=== PATIENT | female | born 1960 | race African-American/Black ===

== ENCOUNTER 2018-07-13 03:56 | Inpatient (IN) | payer OTHER ==
[~2018-07-13] VITALS: Ht 162.6 cm; Wt 54.4 kg
[2018-07-13] VITALS (22 sets, daily range): BP systolic 83–220; BP diastolic 65–133
[~2018-07-13 03:56] MED LIST: NKM
[2018-07-13] MEDS ORDERED: Sodium Chloride 500ML 500 ML IV ONE (04:12)
[2018-07-13] MEDS ORDERED: LORazepam Inj 2mg/ml 1ml IV ONE ×2 (04:15→05:45)
[2018-07-13] MEDS ORDERED: Albuterol ud Inhalation HHN ONE (04:15)
[2018-07-13] MEDS ORDERED: Ipratropium 0.02% Inh Soln 2.5ml UD HHN ONE (04:15)
--- NOTE | 2018-07-13 04:16 | Emergency Room Report ---
History of Present Illness General Chief Complaint: Diarrhea Source: Patient Present Illness HPI Patient presents with initially complaint of diarrhea However upon initial evaluation patient short of breath Hypertensive Patient does admit to doing cocaine Denies any chest pain however does feel short of breath Denies any back or flank pain Denies any abdominal pain Diarrhea has been ongoing for the past several days Denies any fevers Allergies: Coded Allergies: No Known Allergies (Unverified , 05/17/18) Patient History Past Medical History: see triage record Pertinent Family History: none Last Menstrual Period: na Now: No Reviewed Nursing Documentation: PMH: Agreed; PSxH: Agreed Nursing Documentation-PMH Past Medical History: No History, Except For Hx COPD: Yes Review of Systems All Other Systems: negative except mentioned in HPI Physical Exam Vital Signs Date Time Temp Pulse Resp B/P (MAP) Pulse Ox O2 Delivery O2 Flow Rate FiO2 07/13/18 03:56 98.4 120 25 205/122 92 Room Air Sp02 EP Interpretation: reviewed, normal General Appearance: mild distress - Appears uncomfortable Head: normocephalic, atraumatic Eyes: bilateral eye PERRL, bilateral eye EOMI ENT: hearing grossly normal, normal pharynx, TMs + canals normal, uvula midline Neck: full range of motion, supple, no meningismus, no bony tend Respiratory: no retraction, no accessory muscle use, crackles - Diffusely Cardiovascular #1: no edema, no gallop, no JVD, no murmur, tachycardia Gastrointestinal: normal bowel sounds, non tender, soft, no mass, no organomegaly, non-distended, no guarding, no hernia, no pulsatile mass, no rebound Genitourinary: no CVA tenderness Musculoskeletal: normal inspection Neurologic: oriented x3, responsive, [employer]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, motor strength/ tone normal, sensory intact Psychiatric: mood/affect normal Skin: normal color, no rash, warm/dry, palpation normal Lymphatic: normal inspection, no adenopathy Procedures Critical Care Time Critical Care Time 65 minutes for multiple re-evaluations, critical presentation, respiratory failure concerning for cardiopulmonary arrest not including any procedural time Intubation Intubation : Consent: Emergent Intubation Method: orotracheal Tube Size (cm): 8.0 Medications: Etomidate, Succinylcholine Breath Sounds after Intubation: equal Intubation Complications: no complications Post Intubation Xray: Yes Attempts: One Patient Tolerated: Well Complications: None Medical Decision Making Diagnostic Impression: Primary Impression: Respiratory failure Additional Impressions: CHF (congestive heart failure) COPD exacerbation ER Course Upon arrival patient appears in acute distress Breathing treatments along with ABG is obtained patient's pH is significantly low Elevated CO2 Patient continues to deteriorate and required airway intubation BNP is elevated patient appears to have a mixed CHF/COPD exacerbation With significant CO2 retention x-ray shows pulmonary congestion Urine sample that show infectious pathology Antibiotics are provided after blood cultures patient initially contacted for transfer however given the continued deterioration and decompensation patient is unstable for transfer Labs Test 07/13/18 04:14 07/13/18 04:40 07/13/18 04:44 07/13/18 05:00 White Blood Count 10.1 K/UL (4.8-10.8) Red Blood Count 6.02 M/UL (4.20-5.40) Hemoglobin 16.2 G/DL (12.0-16.0) Hematocrit 50.0 % (37.0-47.0) Mean Corpuscular Volume 83 FL (80-99) Mean Corpuscular Hemoglobin 26.9 PG (27.0-31.0) Mean Corpuscular Hemoglobin Concent 32.3 G/DL (32.0-36.0) Red Cell Distribution Width 14.5 % (11.6-14.8) Platelet Count 390 K/UL (150-450) Mean Platelet Volume 6.2 FL (6.5-10.1) Neutrophils (%) (Auto) 47.8 % (45.0-75.0) Lymphocytes (%) (Auto) 38.1 % (20.0-45.0) Monocytes (%) (Auto) 8.3 % (1.0-10.0) Eosinophils (%) (Auto) 2.9 % (0.0-3.0) Basophils (%) (Auto) 2.9 % (0.0-2.0) Sodium Level 143 MMOL/L (136-145) Potassium Level 3.8 MMOL/L (3.5-5.1) Chloride Level 107 MMOL/L (98-107) Carbon Dioxide Level 27 MMOL/L (21-32) Anion Gap 9 mmol/L (5-15) Blood Urea Nitrogen 15 mg/dL (7-18) Creatinine 1.2 MG/DL (0.55-1.30) Estimat Glomerular Filtration Rate 55.8 mL/min (>60) Glucose Level 218 MG/DL (74-106) Calcium Level 9.4 MG/DL (8.5-10.1) Total Bilirubin 0.4 MG/DL (0.2-1.0) Aspartate Amino Transf (AST/SGOT) 40 U/L (15-37) Alanine Aminotransferase (ALT/SGPT) 55 U/L (12-78) Alkaline Phosphatase 148 U/L (46-116) Total Creatine Kinase 107 U/L (26-308) Creatine Kinase MB 1.8 NG/ML (0.0-3.6) Creatine Kinase MB Relative Index 1.6 Troponin I 0.004 ng/mL (0.000-0.056) Pro-B-Type Natriuretic Peptide 1404 pg/mL (0-125) Total Protein 8.5 G/DL (6.4-8.2) Albumin 3.6 G/DL (3.4-5.0) Globulin 4.9 g/dL Albumin/Globulin Ratio 0.7 (1.0-2.7) Lipase 282 U/L (73-393) Arterial Blood pH 7.021 (7.350-7.450) Arterial Blood Partial Pressure CO2 96.0 mmHg (35.0-45.0) Arterial Blood Partial Pressure O2 60.3 mmHg (75.0-100.0) Arterial Blood HCO3 24.3 mmol/L (22.0-26.0) Arterial Blood Oxygen Saturation 78.5 % (95-100) Arterial Blood Base Excess -9.0 (-2-2) Theo Test Positive Urine Color Pale yellow Urine Appearance Slightly cloudy Urine pH 6 (4.5-8.0) Urine Specific [place] 1.020 (1.005-1.035) Urine Protein 4+ (NEGATIVE) Urine Glucose (UA) 4+ (NEGATIVE) Urine Ketones Negative (NEGATIVE) Urine Blood 5+ (NEGATIVE) Urine Nitrite Negative (NEGATIVE) Urine Bilirubin Negative (NEGATIVE) Urine Urobilinogen Normal MG/DL (0.0-1.0) Urine Leukocyte Esterase 3+ (NEGATIVE) Urine RBC Tntc /HPF (0 - 2) Urine WBC 40-60 /HPF (0 - 2) Urine Squamous Epithelial Cells Many /LPF (NONE/OCC) Urine Bacteria Moderate /HPF (NONE) Urine Coarse Granular Casts 0-2 /LPF (NONE) Urine Opiates Screen Negative (NEGATIVE) Urine Barbiturates Screen Negative (NEGATIVE) Phencyclidine (PCP) Screen Negative (NEGATIVE) Urine Amphetamines Screen Negative (NEGATIVE) Urine Benzodiazepines Screen Negative (NEGATIVE) Urine Cocaine Screen Positive (NEGATIVE) Urine Marijuana (THC) Screen Positive (NEGATIVE) Triglycerides Level 56 MG/DL (30-150) EKG Diagnostic Results Rate: tachycardiac Rhythm: other ST Segments: other - Nonspecific ST, T-wave changes Rhythm Strip Diag. Results EP Interpretation: yes Rate: 110 Rhythm: no PVC's, no ectopy, other - Sinus tach Chest X-Ray Diagnostic Results Chest X-Ray Diagnostic Results : Chest X-Ray Ordered: Yes # of Views/Limited/Complete: 1 View Indication: Shortness of Breath EP Interpretation: Yes Interpretation: no effusion, other - Pulmonary congestion, bilateral increased markings, normal heart size Impression: Other - Pulmonary edema Electronically Signed by: Netta Fang DO Other X-Ray Diagnostic Results Other X-Ray Diagnostic Results : X-Ray ordered: Chest # of Views/Limited Vs Complete: 1 View Indication: Pain EP Interpretation: Yes Interpretation: other Impression: Other - ET tube above the jony will advance minimally Electronically Signed by: Netta Fang DO Last Vital Signs Date Time Temp Pulse Resp B/P (MAP) Pulse Ox O2 Delivery O2 Flow Rate FiO2 07/13/18 03:56 98.4 120 25 205/122 92 Room Air Status: improved Disposition: ADMITTED INPATIENT Condition: Critical Netta Fang DO Jul 13, 2018 04:16
[2018-07-13 04:29] LABS: BASOPHILS % (AUTO) 2.9 % (0.0-2.0); EOSINOPHILS % (AUTO) 2.9 % (0.0-3.0); HEMOGLOBIN 16.2 G/DL (12.0-16.0); LYMPHOCYTES % (AUTO) 38.1 % (20.0-45.0); MEAN CORPUSCULAR VOLUME 83 FL (80-99); MONOCYTES % (AUTO) 8.3 % (1.0-10.0); NEUTROPHILS % (AUTO) 47.8 % (45.0-75.0); PLATELET COUNT 390 K/UL (150-450); RED BLOOD COUNT 6.02 M/UL (4.20-5.40); RED CELL DISTRIBUTION WIDTH 14.5 % (11.6-14.8); WHITE BLOOD COUNT 10.1 K/UL (4.8-10.8)
[2018-07-13 04:36] LABS: ANION GAP 9 mmol/L (5-15); BLOOD UREA NITROGEN 15 mg/dL (7-18); CALCIUM 9.4 MG/DL (8.5-10.1); CARBON DIOXIDE 27 MMOL/L (21-32); CHLORIDE 107 MMOL/L (98-107); CREATININE 1.2 MG/DL (0.55-1.30); POTASSIUM 3.8 MMOL/L (3.5-5.1); SODIUM 143 MMOL/L (136-145)
[2018-07-13 04:39] LABS: BILIRUBIN, URINE NEGATIVE (NEGATIVE); COLOR,URINE PALE YELLOW; GLUCOSE, URINE (UA) 4+ (NEGATIVE); KETONES,URINE NEGATIVE (NEGATIVE); LEUKOCYTE ESTERASE ,URINE 3+ (NEGATIVE); NITRITE,URINE NEGATIVE (NEGATIVE); PH,URINE 6 (4.5-8.0); PROTEIN,URINE 4+ (NEGATIVE); UROBILINOGEN,URINE NORMAL MG/DL (0.0-1.0)
[2018-07-13] MEDS ORDERED: Nitroglycerin 2% oint pkt TOPIC ONE (04:45)
[2018-07-13 04:47] LABS: APPEARANCE,URINE SLIGHTLY CLOUDY
[2018-07-13 04:51] LABS: ALANINE AMINOTRANSFERASE 55 U/L (12-78); ALBUMIN 3.6 G/DL (3.4-5.0); ALBUMIN/GLOBULIN RATIO 0.7 (1.0-2.7); ALKALINE PHOSPHATASE 148 U/L (46-116); ASPARTATE AMINO TRANSFERASE 40 U/L (15-37); BILIRUBIN,TOTAL 0.4 MG/DL (0.2-1.0); CKMB 1.8 NG/ML (0.0-3.6); CREATINE KINASE 107 U/L (26-308)
[2018-07-13] MEDS ORDERED: Succinylcholine 20mg/ml 10ml vial IV ONE (05:00)
[2018-07-13] MEDS ORDERED: Etomidate 40mg/20ml Inj IV ONE (05:00)
[2018-07-13] MEDS: D5NS 1,000 ML IV SCH ×2 (10:25→19:42)
[2018-07-13] MEDS: cefTRIAXone 1 GM in D5W 55 ML IVPB SCH (10:26)
[2018-07-13] MEDS: Solu-MEDROL 125mg Inj IVP SCH ×2 (10:27→20:53)
[2018-07-13] MEDS: Heparin 5000 units/ml inj SUBQ SCH ×2 (10:32→20:53)
--- NOTE | 2018-07-13 10:38 | Diagnostic Imaging Report ---
Indication: Chest pain Technique: One view of the chest Comparison: none Findings: The heart is mildly enlarged. There is diffuse bilateral interstitial and airspace edema. There may be a small amount of pleural fluid on the right, less than on the prior study. Cystic space in the right upper lobe is again demonstrated. Impression: Findings compatible with congestive heart failure
[2018-07-13] MEDS: Albuterol/Ipratropium 3ml neb HHN SCH ×4 (10:44→23:20)
--- NOTE | 2018-07-13 11:50 | Diagnostic Imaging Report ---
Indication: Post orogastric feeding tube placement Technique: Supine view of the upper abdomen Comparison: none Findings: There is a gastric feeding tube in place, tip projected level gastric body, proximal port well beyond the gastroesophageal junction. The bowel gas pattern is unremarkable. Impression: Satisfactory position of orogastric feeding tube Findings phoned to patient's nurse, Joao, at the time of interpretation
--- NOTE | 2018-07-13 18:36 | History & Physical ---
History and Physical History & Physicial HPI Patient presents with respiratory distress and required intubation Patient does admit to doing cocaine prior to intubation. currently unable to get further history Per the ER MD, Denies any chest pain Denies any back or flank pain Denies any abdominal pain Diarrhea has been ongoing for the past several days Denies any fevers Allergies: No Known Allergies (Unverified , 05/17/18) Past Medical History: COPD Pertinent Family History: not available Reviewed of systems: unable Physical WDWN sedated reduced breath sounds bilaterally without rhonchi or wheeze [id number] without MRG NABS nontender no HSM no CCE nonfocal Labs Test 07/13/18 04:14 07/13/18 04:40 07/13/18 04:44 07/13/18 05:00 White Blood Count 10.1 K/UL (4.8-10.8) Red Blood Count 6.02 M/UL (4.20-5.40) Hemoglobin 16.2 G/DL (12.0-16.0) Hematocrit 50.0 % (37.0-47.0) Mean Corpuscular Volume 83 FL (80-99) Mean Corpuscular Hemoglobin 26.9 PG (27.0-31.0) Mean Corpuscular Hemoglobin Concent 32.3 G/DL (32.0-36.0) Red Cell Distribution Width 14.5 % (11.6-14.8) Platelet Count 390 K/UL (150-450) Mean Platelet Volume 6.2 FL (6.5-10.1) Neutrophils (%) (Auto) 47.8 % (45.0-75.0) Lymphocytes (%) (Auto) 38.1 % (20.0-45.0) Monocytes (%) (Auto) 8.3 % (1.0-10.0) Eosinophils (%) (Auto) 2.9 % (0.0-3.0) Basophils (%) (Auto) 2.9 % (0.0-2.0) Sodium Level 143 MMOL/L (136-145) Potassium Level 3.8 MMOL/L (3.5-5.1) Chloride Level 107 MMOL/L (98-107) Carbon Dioxide Level 27 MMOL/L (21-32) Anion Gap 9 mmol/L (5-15) Blood Urea Nitrogen 15 mg/dL (7-18) Creatinine 1.2 MG/DL (0.55-1.30) Estimat Glomerular Filtration Rate 55.8 mL/min (>60) Glucose Level 218 MG/DL (74-106) Calcium Level 9.4 MG/DL (8.5-10.1) Total Bilirubin 0.4 MG/DL (0.2-1.0) Aspartate Amino Transf (AST/SGOT) 40 U/L (15-37) Alanine Aminotransferase (ALT/SGPT) 55 U/L (12-78) Alkaline Phosphatase 148 U/L (46-116) Total Creatine Kinase 107 U/L (26-308) Creatine Kinase MB 1.8 NG/ML (0.0-3.6) Creatine Kinase MB Relative Index 1.6 Troponin I 0.004 ng/mL (0.000-0.056) Pro-B-Type Natriuretic Peptide 1404 pg/mL (0-125) Total Protein 8.5 G/DL (6.4-8.2) Albumin 3.6 G/DL (3.4-5.0) Globulin 4.9 g/dL Albumin/Globulin Ratio 0.7 (1.0-2.7) Lipase 282 U/L (73-393) Arterial Blood pH 7.021 (7.350-7.450) Arterial Blood Partial Pressure CO2 96.0 mmHg (35.0-45.0) Arterial Blood Partial Pressure O2 60.3 mmHg (75.0-100.0) Arterial Blood HCO3 24.3 mmol/L (22.0-26.0) Arterial Blood Oxygen Saturation 78.5 % (95-100) Arterial Blood Base Excess -9.0 (-2-2) Theo Test Positive Urine Color Pale yellow Urine Appearance Slightly cloudy Urine pH 6 (4.5-8.0) Urine Specific [place] 1.020 (1.005-1.035) Urine Protein 4+ (NEGATIVE) Urine Glucose (UA) 4+ (NEGATIVE) Urine Ketones Negative (NEGATIVE) Urine Blood 5+ (NEGATIVE) Urine Nitrite Negative (NEGATIVE) Urine Bilirubin Negative (NEGATIVE) Urine Urobilinogen Normal MG/DL (0.0-1.0) Urine Leukocyte Esterase 3+ (NEGATIVE) Urine RBC Tntc /HPF (0 - 2) Urine WBC 40-60 /HPF (0 - 2) Urine Squamous Epithelial Cells Many /LPF (NONE/OCC) Urine Bacteria Moderate /HPF (NONE) Urine Coarse Granular Casts 0-2 /LPF (NONE) Urine Opiates Screen Negative (NEGATIVE) Urine Barbiturates Screen Negative (NEGATIVE) Phencyclidine (PCP) Screen Negative (NEGATIVE) Urine Amphetamines Screen Negative (NEGATIVE) Urine Benzodiazepines Screen Negative (NEGATIVE) Urine Cocaine Screen Positive (NEGATIVE) Urine Marijuana (THC) Screen Positive (NEGATIVE) Triglycerides Level 56 MG/DL (30-150) Test 07/13/18 08:34 Arterial Blood pH 7.348 (7.350-7.450) Arterial Blood Partial Pressure CO2 40.7 mmHg (35.0-45.0) Arterial Blood Partial Pressure O2 180.9 mmHg (75.0-100.0) Arterial Blood HCO3 21.9 mmol/L (22.0-26.0) Arterial Blood Oxygen Saturation 98.7 % (95-100) Arterial Blood Base Excess -3.5 (-2-2) Theo Test Positive IMPRESSION COPD exacerbation acute respiratory failure acute encephalopathy PLAN care noted IV antibiotics respiratory care Ventilatory support hydraton supportive care suction no wean oxygen therapy prognosis guarded Den Graves MD Jul 13, 2018 18:36
[2018-07-13] MEDS: LORazepam Inj 2mg/ml 1ml IV PRN (19:42)
[2018-07-13] MEDS: NovoLOG Insulin Flexpen SUBQ SCH (20:54)
[2018-07-14] VITALS (17 sets, daily range): BP systolic 144–178; BP diastolic 79–112
[2018-07-14] MEDS: Albuterol/Ipratropium 3ml neb HHN SCH ×6 (03:08→23:00)
[2018-07-14] MEDS: D5NS 1,000 ML IV SCH ×3 (05:29→16:30)
[2018-07-14] MEDS: LORazepam Inj 2mg/ml 1ml IV PRN (05:29)
[2018-07-14] MEDS: NovoLOG Insulin Flexpen SUBQ SCH ×4 (05:42→21:54)
[2018-07-14 05:47] LABS: HEMATOCRIT 38.8 % (37.0-47.0); HEMOGLOBIN 12.8 G/DL (12.0-16.0); MEAN CORPUSCULAR VOLUME 82 FL (80-99); PLATELET COUNT 290 K/UL (150-450); RED BLOOD COUNT 4.72 M/UL (4.20-5.40); RED CELL DISTRIBUTION WIDTH 13.8 % (11.6-14.8); WHITE BLOOD COUNT 9.8 K/UL (4.8-10.8)
[2018-07-14 06:09] LABS: ANION GAP 5 mmol/L (5-15); BLOOD UREA NITROGEN 16 mg/dL (7-18); CALCIUM 8.5 MG/DL (8.5-10.1); CARBON DIOXIDE 27 MMOL/L (21-32); CHLORIDE 108 MMOL/L (98-107); CREATININE 1.1 MG/DL (0.55-1.30); POTASSIUM 3.9 MMOL/L (3.5-5.1); SODIUM 140 MMOL/L (136-145)
[2018-07-14 08:12] LABS: HEMATOCRIT 38.8 % (37.0-47.0); HEMOGLOBIN 12.7 G/DL (12.0-16.0); MEAN CORPUSCULAR VOLUME 82 FL (80-99); PLATELET COUNT 282 K/UL (150-450); RED BLOOD COUNT 4.73 M/UL (4.20-5.40); WHITE BLOOD COUNT 10.1 K/UL (4.8-10.8)
[2018-07-14] MEDS ORDERED: Pantoprazole Inj IVP SCH (09:00)
--- NOTE | 2018-07-14 09:03 | Critical Care Progress Note ---
Assessment/Plan Assessment/Plan IMPRESSION COPD exacerbation acute respiratory failure acute encephalopathy PLAN care noted IV antibiotics respiratory care Ventilatory support hydraton supportive care suction try to wean oxygen therapy prognosis guarded Critical Care - Subjective Interval Events: on vent d/w nursing ROS Limited/Unobtainable: Yes Condition: critical I&O: Intake and Output 07/13/18 07/14/18 19:00 07:00 Intake Total 1673.946 ml 1100 ml Output Total 1265 ml 380 ml Balance 408.946 ml 720 ml Intake IV Total 1633.946 ml 1100 ml Other 40 ml Output Urine Total 1265 ml 380 ml # Bowel Movements 1 Critical Care - Objective ET-Tube: 8.0 ET Position: 22 Last 24 Hour Vital Signs Date Time Temp Pulse Resp B/P (MAP) Pulse Ox O2 Delivery O2 Flow Rate FiO2 07/14/18 07:49 108 18 100 Mechanical Ventilator 40 07/14/18 07:42 104 18 40 07/14/18 07:42 102 18 100 Mechanical Ventilator 40 07/14/18 06:00 106 19 146/86 (106) 100 07/14/18 05:20 110 20 40 07/14/18 05:00 109 19 158/99 (118) 100 07/14/18 04:00 111 07/14/18 04:00 98.5 110 19 154/93 (113) 100 07/14/18 04:00 Mechanical Ventilator 07/14/18 04:00 40 07/14/18 03:17 113 19 100 Mechanical Ventilator 40 07/14/18 03:07 106 18 100 Mechanical Ventilator 40 07/14/18 03:07 106 18 40 07/14/18 03:00 108 19 159/99 (119) 100 07/14/18 02:00 107 20 146/93 (110) 100 07/14/18 01:02 109 20 40 07/14/18 01:00 110 20 159/100 (119) 100 07/14/18 00:00 Mechanical Ventilator 07/14/18 00:00 111 07/14/18 00:00 40 07/14/18 00:00 98.9 110 20 151/93 (112) 100 07/13/18 23:30 108 18 100 Mechanical Ventilator 40 07/13/18 23:20 108 21 40 07/13/18 23:20 106 21 100 Mechanical Ventilator 40 07/13/18 23:00 111 20 156/100 (118) 100 07/13/18 22:00 107 20 152/98 (116) 100 07/13/18 21:06 110 20 40 07/13/18 21:00 114 23 157/98 (117) 100 07/13/18 20:00 98.7 107 21 138/88 (105) 100 07/13/18 20:00 109 07/13/18 20:00 Mechanical Ventilator 07/13/18 20:00 40 07/13/18 19:06 106 18 100 Mechanical Ventilator 40 07/13/18 19:00 18 135/86 Mechanical Ventilator 40 07/13/18 19:00 107 18 135/86 (102) 100 07/13/18 18:56 108 21 100 Mechanical Ventilator 40 07/13/18 18:55 108 21 40 07/13/18 18:00 23 136/93 Mechanical Ventilator 30 07/13/18 18:00 114 23 135/92 (106) 100 07/13/18 17:00 22 157/95 Mechanical Ventilator 40 07/13/18 17:00 111 23 157/95 (115) 100 07/13/18 16:54 109 22 40 07/13/18 16:00 98.8 110 21 134/84 (101) 100 07/13/18 16:00 111 07/13/18 16:00 21 134/84 Mechanical Ventilator 40 07/13/18 16:00 40 07/13/18 16:00 Mechanical Ventilator 07/13/18 15:07 113 18 100 Mechanical Ventilator 70 07/13/18 15:00 112 18 148/96 (113) 100 07/13/18 15:00 18 148/96 Mechanical Ventilator 40 07/13/18 14:57 111 24 100 Mechanical Ventilator 70 07/13/18 14:56 111 25 40 07/13/18 14:45 18 136/98 Mechanical Ventilator 40 07/13/18 14:30 18 137/70 Mechanical Ventilator 40 07/13/18 14:13 21 137/92 Mechanical Ventilator 40 07/13/18 14:00 112 22 142/95 (111) 100 07/13/18 13:13 23 137/88 Mechanical Ventilator 40 07/13/18 13:00 112 23 127/87 (100) 100 07/13/18 12:46 115 25 40 07/13/18 12:38 23 145/97 Mechanical Ventilator 40 07/13/18 12:38 18 130/70 Mechanical Ventilator 40 07/13/18 12:00 40 07/13/18 12:00 98.9 117 21 145/97 (113) 100 07/13/18 12:00 112 07/13/18 12:00 Mechanical Ventilator 07/13/18 11:13 25 120/79 Mechanical Ventilator 40 07/13/18 11:02 108 18 40 07/13/18 11:00 108 22 98/71 (80) 100 07/13/18 11:00 40 07/13/18 10:55 104 27 100 Mechanical Ventilator 70 07/13/18 10:44 103 23 100 Mechanical Ventilator 70 07/13/18 10:43 104 23 60 07/13/18 10:00 24 103/71 Mechanical Ventilator 60 07/13/18 10:00 102 21 103/71 (82) 100 Labs: Labs Test 07/13/18 04:14 07/13/18 04:40 07/13/18 04:44 07/13/18 05:00 White Blood Count 10.1 K/UL (4.8-10.8) Red Blood Count 6.02 M/UL (4.20-5.40) Hemoglobin 16.2 G/DL (12.0-16.0) Hematocrit 50.0 % (37.0-47.0) Mean Corpuscular Volume 83 FL (80-99) Mean Corpuscular Hemoglobin 26.9 PG (27.0-31.0) Mean Corpuscular Hemoglobin Concent 32.3 G/DL (32.0-36.0) Red Cell Distribution Width 14.5 % (11.6-14.8) Platelet Count 390 K/UL (150-450) Mean Platelet Volume 6.2 FL (6.5-10.1) Neutrophils (%) (Auto) 47.8 % (45.0-75.0) Lymphocytes (%) (Auto) 38.1 % (20.0-45.0) Monocytes (%) (Auto) 8.3 % (1.0-10.0) Eosinophils (%) (Auto) 2.9 % (0.0-3.0) Basophils (%) (Auto) 2.9 % (0.0-2.0) Sodium Level 143 MMOL/L (136-145) Potassium Level 3.8 MMOL/L (3.5-5.1) Chloride Level 107 MMOL/L (98-107) Carbon Dioxide Level 27 MMOL/L (21-32) Anion Gap 9 mmol/L (5-15) Blood Urea Nitrogen 15 mg/dL (7-18) Creatinine 1.2 MG/DL (0.55-1.30) Estimat Glomerular Filtration Rate 55.8 mL/min (>60) Glucose Level 218 MG/DL (74-106) Calcium Level 9.4 MG/DL (8.5-10.1) Total Bilirubin 0.4 MG/DL (0.2-1.0) Aspartate Amino Transf (AST/SGOT) 40 U/L (15-37) Alanine Aminotransferase (ALT/SGPT) 55 U/L (12-78) Alkaline Phosphatase 148 U/L (46-116) Total Creatine Kinase 107 U/L (26-308) Creatine Kinase MB 1.8 NG/ML (0.0-3.6) Creatine Kinase MB Relative Index 1.6 Troponin I 0.004 ng/mL (0.000-0.056) Pro-B-Type Natriuretic Peptide 1404 pg/mL (0-125) Total Protein 8.5 G/DL (6.4-8.2) Albumin 3.6 G/DL (3.4-5.0) Globulin 4.9 g/dL Albumin/Globulin Ratio 0.7 (1.0-2.7) Lipase 282 U/L (73-393) Arterial Blood pH 7.021 (7.350-7.450) Arterial Blood Partial Pressure CO2 96.0 mmHg (35.0-45.0) Arterial Blood Partial Pressure O2 60.3 mmHg (75.0-100.0) Arterial Blood HCO3 24.3 mmol/L (22.0-26.0) Arterial Blood Oxygen Saturation 78.5 % (95-100) Arterial Blood Base Excess -9.0 (-2-2) Theo Test Positive Hemoglobin A1c 6.6 % (4.3-6.0) Urine Color Pale yellow Urine Appearance Slightly cloudy Urine pH 6 (4.5-8.0) Urine Specific [place] 1.020 (1.005-1.035) Urine Protein 4+ (NEGATIVE) Urine Glucose (UA) 4+ (NEGATIVE) Urine Ketones Negative (NEGATIVE) Urine Blood 5+ (NEGATIVE) Urine Nitrite Negative (NEGATIVE) Urine Bilirubin Negative (NEGATIVE) Urine Urobilinogen Normal MG/DL (0.0-1.0) Urine Leukocyte Esterase 3+ (NEGATIVE) Urine RBC Tntc /HPF (0 - 2) Urine WBC 40-60 /HPF (0 - 2) Urine Squamous Epithelial Cells Many /LPF (NONE/OCC) Urine Bacteria Moderate /HPF (NONE) Urine Coarse Granular Casts 0-2 /LPF (NONE) Urine Opiates Screen Negative (NEGATIVE) Urine Barbiturates Screen Negative (NEGATIVE) Phencyclidine (PCP) Screen Negative (NEGATIVE) Urine Amphetamines Screen Negative (NEGATIVE) Urine Benzodiazepines Screen Negative (NEGATIVE) Urine Cocaine Screen Positive (NEGATIVE) Urine Marijuana (THC) Screen Positive (NEGATIVE) Triglycerides Level 56 MG/DL (30-150) Test 07/13/18 08:34 07/14/18 05:25 07/14/18 08:00 Arterial Blood pH 7.348 (7.350-7.450) Arterial Blood Partial Pressure CO2 40.7 mmHg (35.0-45.0) Arterial Blood Partial Pressure O2 180.9 mmHg (75.0-100.0) Arterial Blood HCO3 21.9 mmol/L (22.0-26.0) Arterial Blood Oxygen Saturation 98.7 % (95-100) Arterial Blood Base Excess -3.5 (-2-2) Theo Test Positive White Blood Count 9.8 K/UL (4.8-10.8) 10.1 K/UL (4.8-10.8) Red Blood Count 4.72 M/UL (4.20-5.40) 4.73 M/UL (4.20-5.40) Hemoglobin 12.8 G/DL (12.0-16.0) 12.7 G/DL (12.0-16.0) Hematocrit 38.8 % (37.0-47.0) 38.8 % (37.0-47.0) Mean Corpuscular Volume 82 FL (80-99) 82 FL (80-99) Mean Corpuscular Hemoglobin 27.2 PG (27.0-31.0) 26.9 PG (27.0-31.0) Mean Corpuscular Hemoglobin Concent 33.0 G/DL (32.0-36.0) 32.7 G/DL (32.0-36.0) Red Cell Distribution Width 13.8 % (11.6-14.8) 14.0 % (11.6-14.8) Platelet Count 290 K/UL (150-450) 282 K/UL (150-450) Mean Platelet Volume 6.7 FL (6.5-10.1) 7.3 FL (6.5-10.1) Neutrophils (%) (Auto) % (45.0-75.0) % (45.0-75.0) Lymphocytes (%) (Auto) % (20.0-45.0) % (20.0-45.0) Monocytes (%) (Auto) % (1.0-10.0) % (1.0-10.0) Eosinophils (%) (Auto) % (0.0-3.0) % (0.0-3.0) Basophils (%) (Auto) % (0.0-2.0) % (0.0-2.0) Differential Total Cells Counted 100 100 Neutrophils % (Manual) 93 % (45-75) 88 % (45-75) Lymphocytes % (Manual) 5 % (20-45) 6 % (20-45) Monocytes % (Manual) 2 % (1-10) 5 % (1-10) Eosinophils % (Manual) 0 % (0-3) 0 % (0-3) Basophils % (Manual) 0 % (0-2) 1 % (0-2) Band Neutrophils 0 % (0-8) 0 % (0-8) Platelet Estimate Adequate Adequate Platelet Morphology Normal Normal Red Blood Cell Morphology Normal Normal Sodium Level 140 MMOL/L (136-145) Potassium Level 3.9 MMOL/L (3.5-5.1) Chloride Level 108 MMOL/L (98-107) Carbon Dioxide Level 27 MMOL/L (21-32) Anion Gap 5 mmol/L (5-15) Blood Urea Nitrogen 16 mg/dL (7-18) Creatinine 1.1 MG/DL (0.55-1.30) Estimat Glomerular Filtration Rate > 60 mL/min (>60) Glucose Level 170 MG/DL (74-106) Calcium Level 8.5 MG/DL (8.5-10.1) Objective: WDWN NAD on vent clear breath sounds bilaterally without rhonchi or wheeze [id number] without MRG NABS nontender no HSM no CCE poor LOC Micro: Microbiology Date/Time Source Procedure Growth Status 07/13/18 04:44 Urine,Clean Catch Urine Culture - Preliminary Streptococcus Species Resulted 07/13/18 21:00 Rectum Received Accucheck: 166 Den Graves MD Jul 14, 2018 09:03
[2018-07-14] MEDS: Solu-MEDROL 125mg Inj IVP SCH ×2 (09:26→21:54)
[2018-07-14] MEDS: Heparin 5000 units/ml inj SUBQ SCH ×2 (09:47→21:54)
[2018-07-14] MEDS: cefTRIAXone 1 GM in D5W 55 ML IVPB SCH (10:07)
[2018-07-14] MEDS ORDERED: LORazepam Inj 2mg/ml 1ml IV PRN (17:15)
[2018-07-15] VITALS: BP 148/92
[2018-07-15] MEDS: D5NS 1,000 ML IV SCH ×3 (02:33→22:05)
[2018-07-15] MEDS: Albuterol/Ipratropium 3ml neb HHN SCH ×6 (03:00→23:45)
[2018-07-15 04:00] VITALS: BP 147/91
[2018-07-15] MEDS: NovoLOG Insulin Flexpen SUBQ SCH ×4 (05:57→22:02)
[2018-07-15 08:00] VITALS: BP 152/89
[2018-07-15] MEDS: Pantoprazole Inj IVP SCH (08:24)
[2018-07-15] MEDS: Solu-MEDROL 125mg Inj IVP SCH (08:25)
[2018-07-15] MEDS: cefTRIAXone 1 GM in D5W 55 ML IVPB SCH (08:27)
[2018-07-15] MEDS: Heparin 5000 units/ml inj SUBQ SCH ×2 (08:35→22:02)
[2018-07-15 12:00] VITALS: BP 185/117
--- NOTE | 2018-07-15 14:30 | Pulmonology Progress Note ---
Assessment/Plan Assessment/Plan Assessment/Plan IMPRESSION COPD exacerbation acute respiratory failure resolved acute encephalopathy PLAN care noted IV antibiotics respiratory care hydration supportive care oxygen therapy PRN Interval Events: on ventstable ON d/w nursing ROS Limited/Unobtainable: Yes Labs Test 07/13/18 04:14 07/13/18 04:40 07/13/18 04:44 07/13/18 05:00 White Blood Count 10.1 K/UL (4.8-10.8) Red Blood Count 6.02 M/UL (4.20-5.40) Hemoglobin 16.2 G/DL (12.0-16.0) Hematocrit 50.0 % (37.0-47.0) Mean Corpuscular Volume 83 FL (80-99) Mean Corpuscular Hemoglobin 26.9 PG (27.0-31.0) Mean Corpuscular Hemoglobin Concent 32.3 G/DL (32.0-36.0) Red Cell Distribution Width 14.5 % (11.6-14.8) Platelet Count 390 K/UL (150-450) Mean Platelet Volume 6.2 FL (6.5-10.1) Neutrophils (%) (Auto) 47.8 % (45.0-75.0) Lymphocytes (%) (Auto) 38.1 % (20.0-45.0) Monocytes (%) (Auto) 8.3 % (1.0-10.0) Eosinophils (%) (Auto) 2.9 % (0.0-3.0) Basophils (%) (Auto) 2.9 % (0.0-2.0) Sodium Level 143 MMOL/L (136-145) Potassium Level 3.8 MMOL/L (3.5-5.1) Chloride Level 107 MMOL/L (98-107) Carbon Dioxide Level 27 MMOL/L (21-32) Anion Gap 9 mmol/L (5-15) Blood Urea Nitrogen 15 mg/dL (7-18) Creatinine 1.2 MG/DL (0.55-1.30) Estimat Glomerular Filtration Rate 55.8 mL/min (>60) Glucose Level 218 MG/DL (74-106) Calcium Level 9.4 MG/DL (8.5-10.1) Total Bilirubin 0.4 MG/DL (0.2-1.0) Aspartate Amino Transf (AST/SGOT) 40 U/L (15-37) Alanine Aminotransferase (ALT/SGPT) 55 U/L (12-78) Alkaline Phosphatase 148 U/L (46-116) Total Creatine Kinase 107 U/L (26-308) Creatine Kinase MB 1.8 NG/ML (0.0-3.6) Creatine Kinase MB Relative Index 1.6 Troponin I 0.004 ng/mL (0.000-0.056) Pro-B-Type Natriuretic Peptide 1404 pg/mL (0-125) Total Protein 8.5 G/DL (6.4-8.2) Albumin 3.6 G/DL (3.4-5.0) Globulin 4.9 g/dL Albumin/Globulin Ratio 0.7 (1.0-2.7) Lipase 282 U/L (73-393) Arterial Blood pH 7.021 (7.350-7.450) Arterial Blood Partial Pressure CO2 96.0 mmHg (35.0-45.0) Arterial Blood Partial Pressure O2 60.3 mmHg (75.0-100.0) Arterial Blood HCO3 24.3 mmol/L (22.0-26.0) Arterial Blood Oxygen Saturation 78.5 % (95-100) Arterial Blood Base Excess -9.0 (-2-2) Theo Test Positive Hemoglobin A1c 6.6 % (4.3-6.0) Urine Color Pale yellow Urine Appearance Slightly cloudy Urine pH 6 (4.5-8.0) Urine Specific [place] 1.020 (1.005-1.035) Urine Protein 4+ (NEGATIVE) Urine Glucose (UA) 4+ (NEGATIVE) Urine Ketones Negative (NEGATIVE) Urine Blood 5+ (NEGATIVE) Urine Nitrite Negative (NEGATIVE) Urine Bilirubin Negative (NEGATIVE) Urine Urobilinogen Normal MG/DL (0.0-1.0) Urine Leukocyte Esterase 3+ (NEGATIVE) Urine RBC Tntc /HPF (0 - 2) Urine WBC 40-60 /HPF (0 - 2) Urine Squamous Epithelial Cells Many /LPF (NONE/OCC) Urine Bacteria Moderate /HPF (NONE) Urine Coarse Granular Casts 0-2 /LPF (NONE) Urine Opiates Screen Negative (NEGATIVE) Urine Barbiturates Screen Negative (NEGATIVE) Phencyclidine (PCP) Screen Negative (NEGATIVE) Urine Amphetamines Screen Negative (NEGATIVE) Urine Benzodiazepines Screen Negative (NEGATIVE) Urine Cocaine Screen Positive (NEGATIVE) Urine Marijuana (THC) Screen Positive (NEGATIVE) Triglycerides Level 56 MG/DL (30-150) Test 07/13/18 08:34 07/14/18 05:25 07/14/18 08:00 Arterial Blood pH 7.348 (7.350-7.450) Arterial Blood Partial Pressure CO2 40.7 mmHg (35.0-45.0) Arterial Blood Partial Pressure O2 180.9 mmHg (75.0-100.0) Arterial Blood HCO3 21.9 mmol/L (22.0-26.0) Arterial Blood Oxygen Saturation 98.7 % (95-100) Arterial Blood Base Excess -3.5 (-2-2) Theo Test Positive White Blood Count 9.8 K/UL (4.8-10.8) 10.1 K/UL (4.8-10.8) Red Blood Count 4.72 M/UL (4.20-5.40) 4.73 M/UL (4.20-5.40) Hemoglobin 12.8 G/DL (12.0-16.0) 12.7 G/DL (12.0-16.0) Hematocrit 38.8 % (37.0-47.0) 38.8 % (37.0-47.0) Mean Corpuscular Volume 82 FL (80-99) 82 FL (80-99) Mean Corpuscular Hemoglobin 27.2 PG (27.0-31.0) 26.9 PG (27.0-31.0) Mean Corpuscular Hemoglobin Concent 33.0 G/DL (32.0-36.0) 32.7 G/DL (32.0-36.0) Red Cell Distribution Width 13.8 % (11.6-14.8) 14.0 % (11.6-14.8) Platelet Count 290 K/UL (150-450) 282 K/UL (150-450) Mean Platelet Volume 6.7 FL (6.5-10.1) 7.3 FL (6.5-10.1) Neutrophils (%) (Auto) % (45.0-75.0) % (45.0-75.0) Lymphocytes (%) (Auto) % (20.0-45.0) % (20.0-45.0) Monocytes (%) (Auto) % (1.0-10.0) % (1.0-10.0) Eosinophils (%) (Auto) % (0.0-3.0) % (0.0-3.0) Basophils (%) (Auto) % (0.0-2.0) % (0.0-2.0) Differential Total Cells Counted 100 100 Neutrophils % (Manual) 93 % (45-75) 88 % (45-75) Lymphocytes % (Manual) 5 % (20-45) 6 % (20-45) Monocytes % (Manual) 2 % (1-10) 5 % (1-10) Eosinophils % (Manual) 0 % (0-3) 0 % (0-3) Basophils % (Manual) 0 % (0-2) 1 % (0-2) Band Neutrophils 0 % (0-8) 0 % (0-8) Platelet Estimate Adequate Adequate Platelet Morphology Normal Normal Red Blood Cell Morphology Normal Normal Sodium Level 140 MMOL/L (136-145) Potassium Level 3.9 MMOL/L (3.5-5.1) Chloride Level 108 MMOL/L (98-107) Carbon Dioxide Level 27 MMOL/L (21-32) Anion Gap 5 mmol/L (5-15) Blood Urea Nitrogen 16 mg/dL (7-18) Creatinine 1.1 MG/DL (0.55-1.30) Estimat Glomerular Filtration Rate > 60 mL/min (>60) Glucose Level 170 MG/DL (74-106) Calcium Level 8.5 MG/DL (8.5-10.1) Objective: WDWN NAD on vent clear breath sounds bilaterally without rhonchi or wheeze [id number] without MRG NABS nontender no HSM no CCE poor LOC Micro: Microbiology Date/Time Source Procedure Growth Status 07/13/18 04:44 Urine,Clean Catch Urine Culture - Preliminary Streptococcus Species Resulted 07/13/18 21:00 Rectum Received Subjective ROS Limited/Unobtainable: No Allergies: Coded Allergies: No Known Allergies (Unverified , 05/17/18) Objective Last 24 Hour Vital Signs Date Time Temp Pulse Resp B/P (MAP) Pulse Ox O2 Delivery O2 Flow Rate FiO2 07/15/18 13:07 185/117 07/15/18 12:00 99.3 112 18 185/117 (139) 95 07/15/18 12:00 114 07/15/18 11:37 181/107 07/15/18 10:38 Room Air 21 07/15/18 10:38 Room Air 21 07/15/18 09:00 Room Air Room Air 07/15/18 08:00 98.4 110 20 152/89 (110) 95 07/15/18 08:00 111 07/15/18 07:28 Nasal Cannula 3.0 32 07/15/18 07:28 Nasal Cannula 3.0 32 07/15/18 04:00 98.0 104 17 147/91 (109) 97 07/15/18 04:00 105 07/15/18 03:31 Nasal Cannula 3.0 32 07/15/18 03:31 Nasal Cannula 3.0 32 07/15/18 00:00 98.9 107 19 148/92 (110) 98 07/15/18 00:00 107 07/14/18 23:48 Nasal Cannula 3.0 32 07/14/18 23:48 Nasal Cannula 3.0 32 07/14/18 21:00 Room Air Room Air 07/14/18 20:27 Nasal Cannula 3.0 32 07/14/18 20:27 Nasal Cannula 3.0 32 07/14/18 20:00 98.5 114 19 155/103 (120) 97 07/14/18 20:00 114 07/14/18 16:00 97.3 110 20 156/92 (113) 98 07/14/18 16:00 112 07/14/18 15:30 Nasal Cannula 07/14/18 15:30 Nasal Cannula 07/14/18 15:00 109 19 156/79 (104) 100 Intake and Output 07/14/18 07/15/18 19:00 07:00 Intake Total 210 ml Output Total 290 ml 600 ml Balance -80 ml -600 ml Intake Oral 210 ml Output Urine Total 290 ml 600 ml Microbiology Date/Time Source Procedure Growth Status 07/13/18 04:10 Blood Blood Culture - Preliminary NO GROWTH AFTER 24 HOURS Resulted 07/13/18 04:00 Blood Blood Culture - Preliminary NO GROWTH AFTER 24 HOURS Resulted 07/13/18 04:44 Urine,Clean Catch Urine Culture - Final Strep Agalactiae Group B Mixed Gram Positive Organism Complete 07/13/18 21:00 Rectum Received Current Medications Medications (Trade) Dose Ordered Sig/Alisia Route PRN Reason Start Time Stop Time Status Last Admin Dose Admin Albuterol/ Ipratropium (Albuterol/ Ipratropium) 3 ml Q4HRT HHN 07/14/18 19:00 07/18/18 10:59 Ceftriaxone Sodium 1 gm/ Dextrose 55 ml @ 110 mls/hr Q24H IVPB 07/15/18 09:00 07/20/18 08:59 07/15/18 08:27 Clonidine HCl (Catapres Tab) 0.1 mg Q4H PRN ORAL SBP> 150 07/14/18 17:00 08/12/18 16:59 07/15/18 11:37 Dextrose (Dextrose 50%) 25 ml Q30M PRN IV Hypoglycemia 07/14/18 16:45 08/12/18 18:44 Dextrose (Dextrose 50%) 50 ml Q30M PRN IV Hypoglycemia 07/14/18 16:45 08/12/18 18:44 Dextrose/Sodium Chloride 1,000 ml @ 100 mls/hr Q10H IV 07/14/18 16:30 08/12/18 09:14 07/15/18 12:25 Heparin Sodium (Porcine) (Heparin 5000 units/ml) 5,000 units EVERY 12 HOURS SUBQ 07/14/18 21:00 08/12/18 08:59 07/14/18 21:54 Insulin Aspart (NovoLOG) BEFORE MEALS AND HS SUBQ 07/14/18 16:30 08/12/18 20:59 07/15/18 12:23 Lorazepam (Ativan 2mg/ml 1ml) 1 mg Q4H PRN IV For Anxiety 07/14/18 17:15 07/20/18 17:14 Methylprednisolone Sodium Succinate (Solu-MEDROL) 60 mg EVERY 12 HOURS IVP 07/14/18 21:00 08/12/18 08:59 07/15/18 08:25 Pantoprazole (Protonix) 40 mg DAILY IVP 07/15/18 09:00 08/13/18 08:59 07/15/18 08:24 Joao Gupta MD Jul 15, 2018 14:30
--- NOTE | 2018-07-15 15:57 | Cardiology Report ---
APPROVED REPORT EKG Measurement Heart [id number] Poor data quality, interpretation may be adversely affected Sinus tachycardia Biatrial enlargement Right axis deviation Pulmonary disease pattern Abnormal ECG
[2018-07-15 16:00] VITALS: BP 152/103
[2018-07-15 20:00] VITALS: BP 161/95
[2018-07-16] VITALS: BP 147/73
[2018-07-16] MEDS: D5NS 1,000 ML IV SCH ×3 (03:23→17:11)
[2018-07-16] MEDS: Albuterol/Ipratropium 3ml neb HHN SCH ×6 (03:36→23:26)
[2018-07-16 04:00] VITALS: BP 152/108
[2018-07-16] MEDS: NovoLOG Insulin Flexpen SUBQ SCH ×4 (06:15→21:07)
[2018-07-16 08:00] VITALS: BP 154/108
[2018-07-16] MEDS: Pantoprazole Inj IVP SCH (08:27)
[2018-07-16] MEDS: cefTRIAXone 1 GM in D5W 55 ML IVPB SCH (08:27)
[2018-07-16] MEDS: Heparin 5000 units/ml inj SUBQ SCH ×2 (08:28→21:05)
[2018-07-16] MEDS ORDERED: Solu-MEDROL 125mg Inj IVP SCH (09:00)
--- NOTE | 2018-07-16 10:35 | Pulmonology Progress Note ---
Assessment/Plan Assessment/Plan IMPRESSION COPD exacerbation acute respiratory failure resolved acute encephalopathy PLAN care noted IV antibiotics--->PO respiratory care taper steroids hydration supportive care oxygen therapy PRN dc planning Subjective Allergies: Coded Allergies: No Known Allergies (Unverified , 05/17/18) Subjective stable off vent Objective Last 24 Hour Vital Signs Date Time Temp Pulse Resp B/P (MAP) Pulse Ox O2 Delivery O2 Flow Rate FiO2 07/16/18 09:24 Room Air Room Air 07/16/18 08:28 107 154/108 07/16/18 08:00 97.5 107 20 154/108 (123) 97 07/16/18 08:00 102 07/16/18 07:29 101 18 100 Room Air 21 07/16/18 07:24 102 20 98 Room Air 21 07/16/18 06:15 152/108 07/16/18 04:00 97.5 97 20 152/108 (123) 100 07/16/18 03:42 99 07/16/18 03:36 Room Air 21 07/16/18 03:36 Room Air 21 07/16/18 00:00 98.4 108 20 147/73 (97) 94 07/15/18 23:55 103 07/15/18 23:55 101 20 99 Room Air 21 07/15/18 23:45 102 18 95 Room Air 21 07/15/18 23:30 160/99 07/15/18 21:00 Room Air Room Air 07/15/18 20:00 98.7 104 18 161/95 (117) 94 07/15/18 19:41 108 07/15/18 19:37 106 18 100 Room Air 21 07/15/18 19:28 104 18 97 Room Air 21 07/15/18 17:16 103 152/103 07/15/18 16:00 103 07/15/18 16:00 98.7 104 20 152/103 (119) 94 07/15/18 15:05 Room Air 21 07/15/18 15:05 Room Air 21 07/15/18 13:07 185/117 07/15/18 12:00 99.3 112 18 185/117 (139) 95 07/15/18 12:00 114 07/15/18 11:37 181/107 07/15/18 10:38 Room Air 21 07/15/18 10:38 Room Air 21 Intake and Output 07/15/18 07/16/18 18:59 06:59 Intake Total 960 ml 300 ml Output Total 850 ml 500 ml Balance 110 ml -200 ml Intake Oral 960 ml 300 ml Output Urine Total 850 ml 500 ml # Voids 3 Objective WDWN NAD clear breath sounds bilaterally without rhonchi or wheeze [id number] without MRG NABS nontender no HSM no CCE nonfocal Microbiology Date/Time Source Procedure Growth Status 07/13/18 21:00 Nasal Nares MRSA Culture - Final NO METHICILLIN RESISTANT STAPH AUREUS... Complete 07/13/18 21:00 Rectum - Final NO CARBAPENEM-RESISTANT ENTEROBACTERI... Complete 07/13/18 21:00 Rectum VRE Culture - Final NO VANCOMYCIN RESISTANT ENTEROCOCCUS ... Complete Current Medications Medications (Trade) Dose Ordered Sig/Alisia Route PRN Reason Start Time Stop Time Status Last Admin Dose Admin Albuterol/ Ipratropium (Albuterol/ Ipratropium) 3 ml Q4HRT HHN 07/14/18 19:00 07/18/18 10:59 07/16/18 07:44 Amlodipine Besylate (Norvasc) 5 mg DAILY ORAL 07/15/18 16:45 08/14/18 16:44 07/16/18 08:28 Ceftriaxone Sodium 1 gm/ Dextrose 55 ml @ 110 mls/hr Q24H IVPB 07/15/18 09:00 07/20/18 08:59 07/16/18 08:27 Clonidine HCl (Catapres Tab) 0.1 mg Q4H PRN ORAL SBP> 150 07/14/18 17:00 08/12/18 16:59 07/16/18 06:15 Dextrose (Dextrose 50%) 25 ml Q30M PRN IV Hypoglycemia 07/14/18 16:45 08/12/18 18:44 Dextrose (Dextrose 50%) 50 ml Q30M PRN IV Hypoglycemia 07/14/18 16:45 08/12/18 18:44 Dextrose/Sodium Chloride 1,000 ml @ 100 mls/hr Q10H IV 07/14/18 16:30 08/12/18 09:14 07/16/18 03:23 Heparin Sodium (Porcine) (Heparin 5000 units/ml) 5,000 units EVERY 12 HOURS SUBQ 07/14/18 21:00 08/12/18 08:59 07/16/18 08:28 Insulin Aspart (NovoLOG) BEFORE MEALS AND HS SUBQ 07/14/18 16:30 08/12/18 20:59 07/16/18 06:15 Lorazepam (Ativan 2mg/ml 1ml) 1 mg Q4H PRN IV For Anxiety 07/14/18 17:15 07/20/18 17:14 Methylprednisolone Sodium Succinate (Solu-MEDROL) 60 mg DAILY IVP 07/16/18 09:00 08/12/18 08:59 07/16/18 08:27 Pantoprazole (Protonix) 40 mg DAILY IVP 07/15/18 09:00 08/13/18 08:59 07/16/18 08:27 Tiotropium [place] (Spiriva Inhaler) 1 puff DAILY INH 07/15/18 17:00 08/14/18 16:59 Den Graves MD Jul 16, 2018 10:35
[2018-07-16 12:00] VITALS: BP 161/98
[2018-07-16] MEDS ORDERED: D5NS 1000ml IV ONE (13:16)
[2018-07-16 16:00] VITALS: BP 161/101
[2018-07-16 20:00] VITALS: BP 160/90
[2018-07-17] VITALS: BP 148/93
[2018-07-17] MEDS: Albuterol/Ipratropium 3ml neb HHN SCH ×2 (03:00→07:25)
[2018-07-17 04:00] VITALS: BP 160/100
[2018-07-17] MEDS: D5NS 1,000 ML IV SCH (04:48)
[2018-07-17] MEDS: NovoLOG Insulin Flexpen SUBQ SCH ×4 (06:27→20:31)
[2018-07-17 08:00] VITALS: BP 152/79
--- NOTE | 2018-07-17 08:19 | Pulmonology Progress Note ---
Assessment/Plan Assessment/Plan IMPRESSION COPD exacerbation acute respiratory failure resolved acute encephalopathy homeless PLAN care noted PO antibiotics respiratory care dc steroids dc hydration breo and spiriva oxygen therapy off dc planning Subjective Allergies: Coded Allergies: No Known Allergies (Unverified , 05/17/18) Subjective stable off vent wants retirement homeless Objective Last 24 Hour Vital Signs Date Time Temp Pulse Resp B/P (MAP) Pulse Ox O2 Delivery O2 Flow Rate FiO2 07/17/18 07:26 101 22 99 Room Air 21 07/17/18 07:11 107 20 97 Room Air 21 07/17/18 04:00 101 07/17/18 04:00 98.7 106 18 160/100 (120) 98 07/17/18 03:28 Room Air 07/17/18 03:28 Room Air 07/17/18 00:00 98.3 109 20 148/93 (111) 96 07/17/18 00:00 110 07/16/18 23:38 104 20 99 Room Air 21 07/16/18 23:26 103 16 99 Room Air 21 07/16/18 21:04 160/90 07/16/18 21:00 Room Air Room Air 07/16/18 20:34 106 18 98 Room Air 21 07/16/18 20:24 104 18 97 Room Air 21 07/16/18 20:00 106 07/16/18 20:00 97.5 107 20 160/90 (113) 97 07/16/18 16:00 113 07/16/18 16:00 97.9 106 20 161/101 (121) 100 07/16/18 15:18 108 20 100 Room Air 21 07/16/18 15:11 108 20 98 Room Air 21 07/16/18 12:41 161/98 07/16/18 12:00 110 07/16/18 12:00 97.3 112 20 161/98 (119) 97 07/16/18 11:05 106 22 100 Room Air 21 07/16/18 11:00 109 22 97 Room Air 21 07/16/18 09:24 Room Air Room Air 07/16/18 08:28 107 154/108 Intake and Output 07/16/18 07/17/18 18:59 06:59 Intake Total 360 ml 400 ml Output Total 300 ml 2125 ml Balance 60 ml -1725 ml Intake Oral 360 ml 400 ml Output Urine Total 300 ml 2125 ml # Voids 1 # Bowel Movements 1 Objective WDWN NAD reduced breath sounds bilaterally without rhonchi or wheeze [id number] without MRG NABS nontender no HSM no CCE nonfocal Current Medications Medications (Trade) Dose Ordered Sig/Alisia Route PRN Reason Start Time Stop Time Status Last Admin Dose Admin Albuterol/ Ipratropium (Albuterol/ Ipratropium) 3 ml Q4HRT HHN 07/14/18 19:00 07/18/18 10:59 07/17/18 07:25 Amlodipine Besylate (Norvasc) 5 mg DAILY ORAL 07/15/18 16:45 08/14/18 16:44 07/16/18 08:28 Cefuroxime Axetil (Ceftin) 250 mg EVERY 12 HOURS ORAL 07/16/18 21:00 07/23/18 20:59 07/16/18 21:04 Clonidine HCl (Catapres Tab) 0.1 mg Q4H PRN ORAL SBP> 150 07/14/18 17:00 08/12/18 16:59 07/16/18 21:04 Dextrose (Dextrose 50%) 25 ml Q30M PRN IV Hypoglycemia 07/14/18 16:45 08/12/18 18:44 Dextrose (Dextrose 50%) 50 ml Q30M PRN IV Hypoglycemia 07/14/18 16:45 08/12/18 18:44 Heparin Sodium (Porcine) (Heparin 5000 units/ml) 5,000 units EVERY 12 HOURS SUBQ 07/14/18 21:00 08/12/18 08:59 07/16/18 21:05 Insulin Aspart (NovoLOG) BEFORE MEALS AND HS SUBQ 07/14/18 16:30 08/12/18 20:59 07/17/18 06:27 Lorazepam (Ativan 2mg/ml 1ml) 1 mg Q4H PRN IV For Anxiety 07/14/18 17:15 07/20/18 17:14 Methylprednisolone Sodium Succinate (Solu-MEDROL) 30 mg DAILY IVP 07/17/18 09:00 08/12/18 08:59 Pantoprazole (Protonix) 40 mg DAILY IVP 07/15/18 09:00 08/13/18 08:59 07/16/18 08:27 Tiotropium [place] (Spiriva Inhaler) 1 puff DAILY INH 07/15/18 17:00 08/14/18 16:59 Den Graves MD Jul 17, 2018 08:19
[2018-07-17] MEDS ORDERED: Solu-MEDROL 40mg Inj IVP SCH (09:00)
[2018-07-17] MEDS: Breo Ellipta 200/25mcg-14 dose INH SCH (09:00)
[2018-07-17] MEDS: Pantoprazole Inj IVP SCH (09:45)
[2018-07-17] MEDS: Heparin 5000 units/ml inj SUBQ SCH ×2 (09:47→20:31)
[2018-07-17 12:00] VITALS: BP 166/108
[2018-07-17] MEDS ORDERED: Flu Vaccine (Alfuria) for Pts Less than 65 Years old IM ONE (15:00)
[2018-07-17] MEDS ORDERED: Tubing IV Secondary IV ONE (15:13)
[2018-07-17] MEDS ORDERED: D5NS 1000ml IV ONE ×2 (15:13)
[2018-07-17 16:00] VITALS: BP 148/93
[2018-07-17 20:00] VITALS: BP 175/118
[2018-07-18] VITALS: BP 158/93
[2018-07-18 04:00] VITALS: BP 159/101
[2018-07-18] MEDS: NovoLOG Insulin Flexpen SUBQ SCH ×2 (06:09→13:10)
[2018-07-18 08:00] VITALS: BP 134/93
--- NOTE | 2018-07-18 08:51 | Pulmonology Progress Note ---
Assessment/Plan Assessment/Plan IMPRESSION COPD exacerbation acute respiratory failure resolved acute encephalopathy htn homeless PLAN PO antibiotics respiratory care norvasc and losartan breo and spiriva oxygen therapy off dc planning per CM Subjective Allergies: Coded Allergies: No Known Allergies (Unverified , 05/17/18) Subjective stable off vent homeless Objective Last 24 Hour Vital Signs Date Time Temp Pulse Resp B/P (MAP) Pulse Ox O2 Delivery O2 Flow Rate FiO2 07/18/18 06:26 159/101 07/18/18 04:00 98.6 102 20 159/101 (120) 98 07/18/18 04:00 97 07/18/18 01:16 158/83 07/18/18 00:00 105 07/18/18 00:00 98.3 106 18 158/93 (114) 96 07/17/18 21:00 Room Air Room Air 07/17/18 20:57 78 18 Room Air 07/17/18 20:37 180/100 07/17/18 20:00 106 07/17/18 20:00 98.4 108 22 175/118 (137) 99 07/17/18 18:00 107 148/93 07/17/18 16:00 107 07/17/18 16:00 97.8 114 16 148/93 (111) 98 07/17/18 12:00 98.1 109 20 166/108 (127) 93 07/17/18 12:00 113 07/17/18 09:46 111 152/79 07/17/18 09:00 Room Air Room Air Intake and Output 07/17/18 07/18/18 19:00 07:00 Intake Total 840 ml Output Total 525 ml Balance 315 ml Intake Oral 840 ml Output Urine Total 525 ml # Voids 3 3 Objective WDWN NAD reduced breath sounds bilaterally without rhonchi or wheeze [id number] without MRG NABS nontender no HSM no CCE nonfocal Current Medications Medications (Trade) Dose Ordered Sig/Alisia Route PRN Reason Start Time Stop Time Status Last Admin Dose Admin Amlodipine Besylate (Norvasc) 5 mg BID ORAL 07/17/18 09:00 08/14/18 16:44 07/17/18 18:00 Cefuroxime Axetil (Ceftin) 250 mg EVERY 12 HOURS ORAL 07/16/18 21:00 07/23/18 20:59 07/17/18 20:28 Clonidine HCl (Catapres Tab) 0.1 mg Q4H PRN ORAL SBP> 150 07/14/18 17:00 08/12/18 16:59 07/18/18 06:26 Dextrose (Dextrose 50%) 25 ml Q30M PRN IV Hypoglycemia 07/14/18 16:45 08/12/18 18:44 Dextrose (Dextrose 50%) 50 ml Q30M PRN IV Hypoglycemia 07/14/18 16:45 08/12/18 18:44 Fluticasone/ Vilanterol (Breo Ellipta 200/25) 1 puffs DAILY INH 07/17/18 09:00 08/16/18 08:59 Heparin Sodium (Porcine) (Heparin 5000 units/ml) 5,000 units EVERY 12 HOURS SUBQ 07/14/18 21:00 08/12/18 08:59 07/17/18 20:31 Insulin Aspart (NovoLOG) BEFORE MEALS AND HS SUBQ 07/14/18 16:30 08/12/18 20:59 07/17/18 20:31 Lorazepam (Ativan 2mg/ml 1ml) 1 mg Q4H PRN IV For Anxiety 07/14/18 17:15 07/20/18 17:14 Losartan Potassium (Cozaar) 50 mg DAILY ORAL 07/18/18 09:00 08/17/18 08:59 Pantoprazole (Protonix) 40 mg DAILY IVP 07/15/18 09:00 08/13/18 08:59 07/17/18 09:45 Tiotropium [place] (Spiriva Inhaler) 1 puff DAILY INH 07/15/18 17:00 08/14/18 16:59 Den Graves MD Jul 18, 2018 08:51
[2018-07-18] MEDS ORDERED: Losartan 50mg tab ORAL SCH (09:00)
[2018-07-18] MEDS: Breo Ellipta 200/25mcg-14 dose INH SCH (09:22)
[2018-07-18] MEDS: Pantoprazole Inj IVP SCH (09:40)
[2018-07-18] MEDS: Heparin 5000 units/ml inj SUBQ SCH (09:49)
[2018-07-18 12:00] VITALS: BP 153/109
[2018-07-18] MEDS ORDERED: NORVASC10 MG ORAL (13:55)
[2018-07-18] MEDS ORDERED: LOSARTAN POTASS25 MG ORAL (13:56)
[2018-07-18] MEDS ORDERED: BREO ELLIPTA 21 EACH IH (13:56)
[2018-07-18] MEDS ORDERED: SPIRIVA INHALE1 PUF1 INH (13:57)
[2018-07-18] MEDS ORDERED: PROAIR HFA8.5 GM INH (13:59)
--- NOTE | 2018-07-19 13:14 | Discharge Summary ---
Discharge Summary Discharge Summary _ DATE OF ADMISSION: 07/13/2018 DATE OF DISCHARGE: 07/18/2018 REASON FOR ADMISSION: 57 years old female with past medical history of COPD , presented to emergency department with complain of shortness of breath. Upon evaluation patient was tachycardic with heart rate 120 , tachypneic respiratory rate 25 ; pulse oximetry initially was 92% on room air . Blood pressure was severely elevated- 205/122. Patient admitted to using cocaine. Urine toxicology screen was positive for cocaine. Urinalysis revealed evidence of pyuria and moderate bacteria. Troponin was negative. EKG revealed sinus tachycardia , no acute ischemic changes. Laboratory work revealed no leukocytosis ,stable hemoglobin and hematocrit , electrolytes and renal parameters. Chest x-ray revealed pulmonary congestion . During the stay in the emergency department, patient deteriorated: she became less responsive and hypoxic. ABG on 100% nonrebreathing mask revealed pH of 7.02, PCO2 of 96 ,O2 sat 78%. Patient was orally intubated and transferred to ICU for further management with diagnoses of acute hypercapnic respiratory failure requiring intubation, acute encephalopathy, hypertensive urgency, COPD exacerbation, probably UTI, homelessness. HOSPITAL COURSE: Patient admitted to ICU. Ventilator support and pulmonary toilet provided. Patient was followed up with ABGs. Patient started on IV steroids with gradual tapering down. Patient started on empiric antibiotic. Orogastric tube was initially placed in for medications, with abdominal X ray confirming placement. Blood pressure was managed with angiotensin receptor babs and calcium channel babs. Clonidine was on board as needed. Blood pressure stabilized. The next day patient was able to be weaned off the ventilator. Supplemental oxygen titrated to keep pulse oximetry above 92%. Urine culture revealed strep group B and mixed gram-positive organisms. Blood culture were negative. Patient completed regimen of antibiotics at the hospital. Blood pressure remained stable. Prior to discharge pulse oximetry stable on room air. DVT prophylaxis provided. Patient was counseled on abstinence from street drugs. Acute encephalopathy resolved, likely due to cocaine intoxication. Patient was given prescription for inhalers : Proventil . Breo and Spiriva. Placement was arranged to longterm. Patient was provided with medication prior to discharge( filled at [facility]). Patient was stable for discharge FINAL DIAGNOSES: Acute hypercapnic respiratory failure requiring intubation ,status post extubation Acute toxic encephalopathy, ( due to cocaine intoxication), resolved COPD exacerbation Hypertensive urgency-resolved Urinary tract infection with strep group B, s/p treatment Homelessness DISCHARGE MEDICATIONS: See Medication Reconciliation list. DISCHARGE INSTRUCTIONS: Patient was discharged to longterm. Follow up with primary care provider in 1-2 weeks. I have been assigned to dictate discharge summary for this account. I was not involved in the patient's management. Kaitlynn Padgett NP Jul 19, 2018 13:14
== END 2018-07-18 13:30 | disposition home or self-care (01) | DRG 140 ==
LOC: EDBD 03:56 → EMR 04:18 → EDBEDREQTM 04:58 → EDBEDREQ 04:58 → EDBEDREQSVC 04:58 → ICU 05:01 → EDBEDREQ 05:02 → 2E 07-14 16:10
PROC: 5A1945Z Respiratory Ventilation, 24-96 Consecutive Hours (ICD-10-PCS; principal; 2018-07-13)
PROC: 0BH17EZ Insertion of Endotracheal Airway into Trachea, Via Natural or Artificial Opening (ICD-10-PCS; 2018-07-13)
DX: J44.1 Chronic obstructive pulmonary disease with (acute) exacerbation (principal); J96.02 Acute respiratory failure with hypercapnia; G92 Toxic encephalopathy; F14.129 Cocaine abuse with intoxication, unspecified; I16.0 Hypertensive urgency; N39.0 Urinary tract infection, site not specified; B95.1 Streptococcus, group B, as the cause of diseases classified elsewhere; Z59.0 Homelessness
CPT/HCPCS: 31500; 36415; 36600; 51702; 71045; 74018; 80048; 80053; 80307; 81003; 82550; 82553; 82803; 82962; 83036; 83690; 83880; 84478; 84484; 85007; 85025; 87040; 87081; 87086; 90686; 93005; 94002; 94003; 94640; 94664; 96365; 96375; 99291; J1815; J7620

== ENCOUNTER 2018-12-19 09:33 | Inpatient (IN) | payer OTHER ==
[~2018-12-19] VITALS: Ht 167.6 cm; Wt 49.0 kg
[2018-12-19] VITALS (15 sets, daily range): BP systolic 87–234; BP diastolic 56–173
[~2018-12-19 09:33] MED LIST changes: +BREO ELLIPTA 21 EACH IH; +LOSARTAN POTASS25 MG ORAL; +NORVASC10 MG ORAL; +PROAIR HFA8.5 GM INH; +SPIRIVA INHALE1 PUF1 INH; +Solu-MEDROL 125mg Inj IVP ONE
--- NOTE | 2018-12-19 09:33 | NUR ---
ED Nurse Note: Pt brought in by RA 34 due to respiratory distress and in 84% in room air. Hx of COPD. Pt came in with a CPAP. Breathing tx and NTG x 3 given by EMS. Pt is AAO x4, follows commands with labored breathing and accessory muscles used. Auscultated expiratory wheezing and tightness on her lungs. Dr Mata and RT at the bed side.
--- NOTE | 2018-12-19 09:35 | NUR ---
RESPIRATORY NOTE: Patient arrived to ED with continuous neb treatments and CPAP. Patient was placed on bipap 12/5 back up rate of 16, FiO2: 100%. Will continue to monitor and wait for MD orders.
[2018-12-19] MEDS ORDERED: UNOBMED (09:37)
[2018-12-19] MEDS ORDERED: Solu-MEDROL 125mg Inj ONE (09:40)
--- NOTE | 2018-12-19 09:45 | NUR ---
RESPIRATORY NOTE: ABG was order by DR. Conway. Patient is a hard stick, all respiratory therapist tried to attempt, but unable to received the ABG order. Notified and spoke to DR. Conway and he is aware.
--- NOTE | 2018-12-19 09:45 | NUR ---
ED Nurse Note: Collected blood and sent.
[2018-12-19 09:50] LABS: BASOPHILS % (AUTO) 1.7 % (0.0-2.0); EOSINOPHILS % (AUTO) 0.9 % (0.0-3.0); HEMATOCRIT 44.8 % (37.0-47.0); HEMOGLOBIN 13.8 G/DL (12.0-16.0); LYMPHOCYTES % (AUTO) 14.7 % (20.0-45.0); MEAN CORPUSCULAR VOLUME 86 FL (80-99); MONOCYTES % (AUTO) 5.5 % (1.0-10.0); NEUTROPHILS % (AUTO) 77.3 % (45.0-75.0); PLATELET COUNT 570 K/UL (150-450); RED BLOOD COUNT 5.21 M/UL (4.20-5.40); RED CELL DISTRIBUTION WIDTH 16.7 % (11.6-14.8); WHITE BLOOD COUNT 10.8 K/UL (4.8-10.8)
[2018-12-19] MEDS ORDERED: Ipratropium 0.02% Inh Soln 2.5ml UD ONE (09:55)
[2018-12-19] MEDS ORDERED: Albuterol ud Inhalation ONE ×2 (09:55→10:04)
[2018-12-19] MEDS: Ipratropium 0.02% Inh Soln 2.5ml UD HHN SCH ×3 (09:56→10:21)
[2018-12-19] MEDS: Albuterol ud Inhalation HHN SCH ×3 (09:56→10:21)
--- NOTE | 2018-12-19 09:56 | NUR ---
ED Nurse Note: RT at the bed side for breathing treatment and ABG. Pt on Bipap. (See intervention for settings.)
[2018-12-19 10:04] LABS: ANION GAP 13 mmol/L (5-15); BLOOD UREA NITROGEN 9 mg/dL (7-18); CALCIUM 8.7 MG/DL (8.5-10.1); CARBON DIOXIDE 23 MMOL/L (21-32); CHLORIDE 104 MMOL/L (98-107); POTASSIUM 4.3 MMOL/L (3.5-5.1); SODIUM 140 MMOL/L (136-145)
--- NOTE | 2018-12-19 10:16 | NUR ---
ED Nurse Note: Belongings list done but pt refused for RN to take a look at her small purse.
[2018-12-19 10:18] LABS: ALANINE AMINOTRANSFERASE 79 U/L (12-78); ALBUMIN/GLOBULIN RATIO 0.6 (1.0-2.7); ALKALINE PHOSPHATASE 233 U/L (46-116); ASPARTATE AMINO TRANSFERASE 38 U/L (15-37); BILIRUBIN,TOTAL 0.7 MG/DL (0.2-1.0); CKMB 1.6 NG/ML (0.0-3.6)
--- NOTE | 2018-12-19 10:22 | Emergency Room Report ---
History of Present Illness General Chief Complaint: Dyspnea/Respdistress Source: Patient, EMS Present Illness HPI 58-year-old female presents ED for evaluation. Patient brought in by EMS for respiratory distress. Found outside apartment building today and labored breathing. Witnesses told EMS she has history of asthma. Patient appeared to have diffuse wheezing bilaterally with crackles. Was started on CPAP, given nitroglycerin 3. Patient appears to be in distress still. Unable to provide any additional history at this time. Reported smoking history. No reported fevers or chills. No other aggravating relieving factors. No other associated symptoms Allergies: Coded Allergies: No Known Allergies (Unverified , 05/17/18) Patient History Past Medical History: HTN, asthma, COPD Past Surgical History: none Pertinent Family History: none Social History: Reports: smoking, drug use; Denies: alcohol use Now: No Immunizations: UTD Reviewed Nursing Documentation: PMH: Agreed; PSxH: Agreed Nursing Documentation-PMH Past Medical History: No History, Except For Hx Cardiac Problems: Yes Hx Hypertension: Yes Hx Asthma: Yes Hx COPD: Yes Hx Cancer: No Hx Gastrointestinal Problems: No Hx Neurological Problems: No Review of Systems All Other Systems: limited Physical Exam Vital Signs Date Time Temp Pulse Resp B/P (MAP) Pulse Ox O2 Delivery O2 Flow Rate FiO2 12/19/18 09:27 125 30 196/130 99 Bi-pap 12/19/18 09:33 98.3 15.0 100 Sp02 EP Interpretation: reviewed, normal General Appearance: alert, GCS 15, non-toxic, severe distress Head: normocephalic, atraumatic Eyes: bilateral eye normal inspection, bilateral eye PERRL ENT: hearing grossly normal, normal pharynx, no angioedema, normal voice Neck: full range of motion, supple/symm/no masses Respiratory: accessory muscle use, crackles, wheezing Cardiovascular #1: no edema, tachycardia Cardiovascular #2: 2+ carotid (R), 2+ carotid (L), 2+ radial (R), 2+ radial (L) , 2+ dorsalis pedis (R), 2+ dorsalis pedis (L) Gastrointestinal: normal bowel sounds, non tender, soft, non-distended, no guarding, no rebound Rectal: deferred Genitourinary: normal inspection, no CVA tenderness Musculoskeletal: back normal, gait/station normal, normal range of motion, non- tender Neurologic: alert, oriented x3, responsive, motor strength/tone normal, sensory intact, speech normal Psychiatric: judgement/insight normal, memory normal, mood/affect normal, no suicidal/homicidal ideation Reflexes: 3+ bicep (R), 3+ bicep (L), 3+ tricep (R), 3+ tricep (L), 3+ knee (R) , 3+ knee (L) Skin: normal color, no rash, warm/dry, well hydrated Lymphatic: no adenopathy Procedures Critical Care Time Critical Care Time i. I feel this is a highly complex case requiring extensive working including EKG/Rhythm strip, Xray/CT/US, Blood/urine lab work, repeat exams while in ED, and administration of strong opiates/narcotics for pain control, admission to hospital or close patient follow up. Total time: 50 min bedside evaluation and treatment excludes procedures (EKG). Reason for critical care: respiratory distress Possible complications: hypotension, hypertension, HI, shock, arrhythmias, metabolic acidosis, end organ damage, respiratory failure. Interventions: labs, EKG, CXR BIPAP, nebs, ABG. intubation. lasix. antibiotics. Course: Patient presenting with respiratory distress. History of CHF and COPD. Cocaine positive. Patient remains and labored breathing with BiPAP. Not responding to nitroglycerin. Blood pressure remains elevated. Patient intubated. Chest x-ray shows significant interstitial congestion possible infiltrate. ET tube in place. ABG shows significant acidosis with hypercapnia and hypoxia. Lasix given. Antibiotics given. Consultations: nursing staff, EMS, family Performed by: Dr Mata Tolerated well condition = critical j. because of unstable vital signs this patient had a condition that could potentially threaten life or limb. I feel this is a critical patient who required my full attention while patient was considered critical. Total Critical Care Time excluding procedures was greater than 50 minutes Medical Decision Making Diagnostic Impression: Primary Impression: Respiratory distress Additional Impressions: CHF (congestive heart failure) Qualified Codes: I50.9 - Heart failure, unspecified COPD (chronic obstructive pulmonary disease) Qualified Codes: J44.9 - Chronic obstructive pulmonary disease, unspecified Cocaine abuse ER Course Hospital Course 58-year-old F presenting to ED with SOB. h/o COPD Differential diagnoses include: Pneumonia, CHF exacerbation, pneumothorax, fluid overload Clinical course Patient placed on stretcher. On donor recruiter. Patient placed on BiPAP and breathing treatments ordered. I ordered labs, IV fluids, EKG, chest x-ray, blood cultures, UA. Labs - no leukocytosis noted, hemoglobin/hematocrit stable, electrolytes ok, lactic > 3, cocaine + EKG - sinus tachycardia, no acute ischemic changes interpreted by me Patient remained in respiratory distress, lethargic after nitroglycerin, breathing treatments, BiPAP. Patient not allowing for chest x-ray or ABG. Clinically patient will require intubation. Patient intubated. Chest x-ray confirms ET tube placement with significant bilateral infiltrates versus edema ABG shows significant acidosis with hypercapnia and hypoxia Antibiotic given. Lasix given. Vent settings adjusted Case discussed with Dr. Ardon and he agreed to the patient to his service for further care and support I feel this is a highly complex case requiring extensive working including EKG/ Rhythm strip, Xray/CT/US, Blood/urine lab work, repeat exams while in ED, and administration of strong opiates/narcotics for pain control, admission to hospital or close patient follow up. Diagnosis - respiratory distress, CHF, COPD, cocaine abuse Patient admitted to ICU in critical condition Labs Test 12/19/18 09:30 12/19/18 11:15 12/19/18 12:15 12/19/18 13:05 White Blood Count 10.8 K/UL (4.8-10.8) Red Blood Count 5.21 M/UL (4.20-5.40) Hemoglobin 13.8 G/DL (12.0-16.0) Hematocrit 44.8 % (37.0-47.0) Mean Corpuscular Volume 86 FL (80-99) Mean Corpuscular Hemoglobin 26.5 PG (27.0-31.0) Mean Corpuscular Hemoglobin Concent 30.8 G/DL (32.0-36.0) Red Cell Distribution Width 16.7 % (11.6-14.8) Platelet Count 570 K/UL (150-450) Mean Platelet Volume 5.6 FL (6.5-10.1) Neutrophils (%) (Auto) 77.3 % (45.0-75.0) Lymphocytes (%) (Auto) 14.7 % (20.0-45.0) Monocytes (%) (Auto) 5.5 % (1.0-10.0) Eosinophils (%) (Auto) 0.9 % (0.0-3.0) Basophils (%) (Auto) 1.7 % (0.0-2.0) Sodium Level 140 MMOL/L (136-145) Potassium Level 4.3 MMOL/L (3.5-5.1) Chloride Level 104 MMOL/L (98-107) Carbon Dioxide Level 23 MMOL/L (21-32) Anion Gap 13 mmol/L (5-15) Blood Urea Nitrogen 9 mg/dL (7-18) Creatinine 1.0 MG/DL (0.55-1.30) Estimat Glomerular Filtration Rate > 60 mL/min (>60) Glucose Level 246 MG/DL (74-106) Lactic Acid Level 3.70 mmol/L (0.4-2.0) 3.90 mmol/L (0.66-2.22) Calcium Level 8.7 MG/DL (8.5-10.1) Total Bilirubin 0.7 MG/DL (0.2-1.0) Aspartate Amino Transf (AST/SGOT) 38 U/L (15-37) Alanine Aminotransferase (ALT/SGPT) 79 U/L (12-78) Alkaline Phosphatase 233 U/L (46-116) Creatine Kinase MB 1.6 NG/ML (0.0-3.6) Troponin I 0.022 ng/mL (0.000-0.056) Pro-B-Type Natriuretic Peptide 2953 pg/mL (0-125) Total Protein 7.7 G/DL (6.4-8.2) Albumin 3.0 G/DL (3.4-5.0) Globulin 4.7 g/dL Albumin/Globulin Ratio 0.6 (1.0-2.7) Urine Color Pale yellow Urine Appearance Clear Urine pH 7 (4.5-8.0) Urine Specific Browning 1.010 (1.005-1.035) Urine Protein 3+ (NEGATIVE) Urine Glucose (UA) 4+ (NEGATIVE) Urine Ketones Negative (NEGATIVE) Urine Blood 2+ (NEGATIVE) Urine Nitrite Negative (NEGATIVE) Urine Bilirubin Negative (NEGATIVE) Urine Urobilinogen Normal MG/DL (0.0-1.0) Urine Leukocyte Esterase Negative (NEGATIVE) Urine RBC 2-4 /HPF (0 - 2) Urine WBC 0-2 /HPF (0 - 2) Urine Squamous Epithelial Cells Few /LPF (NONE/OCC) Urine Bacteria Few /HPF (NONE) Urine Opiates Screen Negative (NEGATIVE) Urine Barbiturates Screen Negative (NEGATIVE) Phencyclidine (PCP) Screen Negative (NEGATIVE) Urine Amphetamines Screen Negative (NEGATIVE) Urine Benzodiazepines Screen Negative (NEGATIVE) Urine Cocaine Screen Positive (NEGATIVE) Urine Marijuana (THC) Screen Negative (NEGATIVE) Arterial Blood pH 7.099 (7.350-7.450) Arterial Blood Partial Pressure CO2 74.3 mmHg (35.0-45.0) Arterial Blood Partial Pressure O2 60.0 mmHg (75.0-100.0) Arterial Blood HCO3 22.5 mmol/L (22.0-26.0) Arterial Blood Oxygen Saturation 80.3 % (95-100) Arterial Blood Base Excess -8.8 (-2-2) Theo Test Positive EKG Diagnostic Results Rate: tachycardiac Rhythm: NSR ST Segments: no acute changes ASA given to the pt in ED: No Rhythm Strip Diag. Results EP Interpretation: yes Rhythm: NSR, no PVC's, no ectopy Chest X-Ray Diagnostic Results Chest X-Ray Diagnostic Results : Chest X-Ray Ordered: Yes # of Views/Limited/Complete: 1 View Indication: Shortness of Breath EP Interpretation: Yes Interpretation: no pneumothorax, other - bilateral diffuse infiltrates vs edema, intubated Impression: Other - chf/pulmonary edema Electronically Signed by: Electronically signed by Jelani Mata MD Last Vital Signs Date Time Temp Pulse Resp B/P (MAP) Pulse Ox O2 Delivery O2 Flow Rate FiO2 12/19/18 10:08 124 28 99 Bi-pap 100 12/19/18 09:35 15.0 12/19/18 09:33 98.3 196/130 Status: improved Disposition: ADMITTED INPATIENT Condition: Critical Referrals: [facility],REFERRING (PCP) Jelani Mata MD Dec 19, 2018 10:22
--- NOTE | 2018-12-19 10:22 | NUR ---
Sarah hamm in EDM - 12/19/18 at 1022 by SERINA ED Note: t
--- NOTE | 2018-12-19 10:22 | NUR ---
ED Nurse Note: Uriel RT tried to draw ABG. Unable to get it and Pt refused at this time. Dr Mata notified.
--- NOTE | 2018-12-19 10:34 | NUR ---
ED Nurse Note: Called Radiology to ff up with CXR.
--- NOTE | 2018-12-19 10:50 | NUR ---
ED Nurse Note: Pt refused VRE/CRE swabs. Pt also uncooperative for CXR. Charge nurse and ERMD made aware.
[2018-12-19] MEDS: Nitroglycerin Subl 0.4mg tab SL PRN ×3 (11:04→11:14)
[2018-12-19] MEDS ORDERED: LORazepam Inj 2mg/ml 1ml IV ONE ×2 (11:30→15:15)
[2018-12-19] MEDS ORDERED: Morphine Sulfate 2mg/ml Inj(IV/IM USE ONLY) IVP ONE (11:30)
--- NOTE | 2018-12-19 12:00 | NUR ---
ED Nurse Note: Etomidate 20mg given IVP at 1155 and Rocuronium given IVP at 1156. Intubation done by Dr Mata at 1200.
--- NOTE | 2018-12-19 12:00 | NUR ---
RESPIRATORY NOTE: Pt was intubated @1200, Charge nurse and RN bedside, intubated with 7.0 ET, 24cm at the lip, bilateral breath sounds, color change on capnometer, placed on AC 450, 16, 100%, will continue to monitor.
[2018-12-19 12:50] LABS: APPEARANCE,URINE CLEAR; BILIRUBIN, URINE NEGATIVE (NEGATIVE); COLOR,URINE PALE YELLOW; GLUCOSE, URINE (UA) 4+ (NEGATIVE); KETONES,URINE NEGATIVE (NEGATIVE); LEUKOCYTE ESTERASE ,URINE NEGATIVE (NEGATIVE); NITRITE,URINE NEGATIVE (NEGATIVE); PH,URINE 7 (4.5-8.0); PROTEIN,URINE 3+ (NEGATIVE); UROBILINOGEN,URINE NORMAL MG/DL (0.0-1.0)
[2018-12-19] MEDS ORDERED: Azithromycin 500 MG in NS 275 ML IV ONE (13:00)
[2018-12-19] MEDS ORDERED: Piperacillin/Tazobactam 3.375 GM in NS 110 ML IVPB ONE (13:00)
[2018-12-19] MEDS ORDERED: Albuterol/Ipratropium 3ml neb HHN PRN (13:30)
[2018-12-19] MEDS ORDERED: Miralax 17gm pkt ORAL PRN (13:30)
[2018-12-19] MEDS ORDERED: Morphine Sulfate 4mg/ml Inj (IV USE ONLY) IVP PRN (13:30)
--- NOTE | 2018-12-19 13:30 | NUR ---
RESPIRATORY NOTE: ABG was drawn and values were critical. I got a verbal MD order from DR. Conway to increase the rate and add a PEEP +5. current settings AC 20, VT 450, +5, 100%
--- NOTE | 2018-12-19 13:30 | Diagnostic Imaging Report ---
Indication: Post intubation Technique: One view of the chest Comparison: 07/13/2018 Findings: There is an endotracheal tube in place, tip in good position, projecting approximately 2 cm above the jony. There is diffuse bilateral interstitial and airspace infiltrates versus edema, and small bilateral pleural effusions. The heart is mildly enlarged. Air cyst in the right upper lung is more apparent than on the previous study. Impression: Bilateral diffuse interstitial and airspace infiltrates versus edema, favor the latter, and bilateral pleural effusions Satisfactory endotracheal intubation Other findings as noted
--- NOTE | 2018-12-19 14:26 | NUR ---
ED Nurse Note: Attempted to give report. ashley Shepherd nurse is not available at this moment. will call in 15 minutes.
--- NOTE | 2018-12-19 14:43 | NUR ---
ED Nurse Note: Tried to call for report to ICU. On hold for a long time. ER Charge nurse notified.
--- NOTE | 2018-12-19 14:55 | NUR ---
ED Nurse Note: Report given to Norma Martin RN of ICU.
--- NOTE | 2018-12-19 15:10 | NUR ---
ED Nurse Note: Dr Mata pushed 50mg of propofol. Pt agitated and restless.
[2018-12-19] MEDS ORDERED: Propofol 200mg/20ml IV ONE ×2 (15:19→15:45)
--- NOTE | 2018-12-19 15:30 | NUR ---
ED Nurse Note: Pt transferred to ICU with all belongings sent. RN with RT and pharmacy technologist.
--- NOTE | 2018-12-19 16:25 | NUR ---
NURSE NOTES: Patient report received from LINDA Aguayo from ER. PAtient placed in room 246-G, Patient is lethargic with 0/5 on upper and lower extremities, she is intubated with a 7.0 at 25cm at the lip with ventilator setting of AC 20, TV: 450, Fio2 100% and peep of 5. Skin is intact, large void noted with full bed linen change,
--- NOTE | 2018-12-19 17:05 | NUR ---
NURSE NOTES: Dr. Noe notified regarding ABG results and ordered to change TV to 650, RT made aware and will change ventilator setting. Patient remains saturating at 100 % with RR of 20. Patient remains lethargic and with gag reflex present, will continue to monitor patient.
--- NOTE | 2018-12-19 17:10 | NUR ---
RESPIRATORY NOTE: Mechanical Ventilator settings changed per MD order. AC 20, VT 650, +5, 100%. Will continue to monitor.
--- NOTE | 2018-12-19 17:25 | NUR ---
NURSE NOTES: Abdominal X-ray taken and awaiting for results for administer medication. will continue to monitor patient.
--- NOTE | 2018-12-19 17:52 | Diagnostic Imaging Report ---
Indication: Post orogastric tube placement Technique: Supine view of the upper abdomen Comparison: 07/13/2018 Findings: There is an orogastric tube in place, tip which projects at the level gastric fundus, proximal sidehole at the level of the distal esophagus. The included lower thorax demonstrates extensive interstitial edema and a large right-sided pleural effusion. Impression: High position of orogastric tube. Advancement recommended. This critical value finding was phoned to ICU nurse Joao at the time of interpretation
--- NOTE | 2018-12-19 18:30 | NUR ---
NURSE NOTES: 2d-Echo completed and awaiting for results, Venous duplex completed and resulted with no dvt noted, will continue to monitor patient.
--- NOTE | 2018-12-19 19:05 | Cardiology Report ---
APPROVED REPORT EXAM: Two-dimensional and M-mode echocardiogram with Doppler and color Doppler. INDICATION LV FUNCTION M-Mode DIMENSIONS IVSd0.5 (0.7-1.1cm)Left Atrium (MM)3.3 (1.6-4.0cm) LVDd3.6 (3.5-5.6cm)Aortic Root2.3 (2.0-3.7cm) PWd0.8 (0.7-1.1cm)Aortic Cusp Exc.1.7 (1.5-2.0cm) IVSs0.8 cm LVDs2.9 (2.5-4.0cm) PWs1.2 cm Other Information Technically limited study due to poor acoustical windows . Normal left ventricular chamber size. Global left ventricular hypokinesia with left ventricular ejection fraction estimated at 30-35%. Anterior Echo-free space, may be due to pericardial fat or effusion. All other cardiac chamber sizes are within normal limits. Aortic valve calcification with normal cusp excursion . Moderatly thickened mitral valve leaflets with normal excursion. Moderate mitral annulus and aortic root calcification. Pulmonic valve not well visualized. IVC at 1.8 cm without physiologic collapse .RAP estimated 10mmHgh. A color flow and spectral Doppler study was performed and revealed: No aortic insufficiency . Mitral diastolic velocities suggest reduced left ventricular relaxation c/w mild LV diastolic dysfunction (Grade I ) Moderate mitral regurgitation. Moderate tricuspid regurgitation. Tricuspid systolic velocities suggests peak right ventricular systolic pressure of 68 mmHg,consistent with severe pulmonary hypertension.
[2018-12-19] MEDS ORDERED: Lidocaine 1% Plain 30 ml INJ PRN (19:15)
[2018-12-19] MEDS ORDERED: Heparin1,000 units/500ml Premix(Conc:2 units/ml) IV PRN (19:15)
--- NOTE | 2018-12-19 19:30 | NUR ---
HAND-OFF: Report given to LINDA bonner. Abdominal X-ray for OG-tube placement taken and sent to stat rad. .
--- NOTE | 2018-12-19 19:30 | NUR ---
NURSE NOTES: Recvd.on a vent.orally intubated.See settings.Lungs scatt.rales/Rh.Diminished BS at Bases.P.Ox-99-100%.Suctioned,NS Lavaged.See V/S.Scope SR-ST.Pos. chg.HOB>30'.NPO.OGT intact.F/cath.patent diuresis well.See I/O.
[2018-12-19] MEDS ORDERED: DOPamine 400mg/250ml 250 ML IV SCH (19:45)
--- NOTE | 2018-12-19 19:56 | NUR ---
RESPIRATORY NOTE: Received pt. on 840 vent. Vent settings are: A/C rate of 20, Vt 650, FI02 100%, PEEP +5. No respiratory distress noted, pt. Sp02 @ 100%. Vent plugged on red outlet. Ambu bag @ BS. Will continue to monitor pt.
[2018-12-19] MEDS ORDERED: Dyna-Hex 2% Top Sol 2oz TOPIC SCH (20:00)
--- NOTE | 2018-12-19 20:54 | History & Physical ---
History and Physical History & Physicial Dictated for Int Med-Salbador Rasmussen MD Dec 19, 2018 20:54
[2018-12-19] MEDS: Heparin 5000 units/ml inj SUBQ SCH (21:03)
--- NOTE | 2018-12-19 21:49 | Consultation ---
History of Present Illness General Date patient seen: Dec 19, 2018 Chief Complaint: Dyspnea/Resp Distress Referring physician: Dr. Rambo Ardon Present Illness HPI 58-year-old female presents ED for evaluation. Patient brought in by EMS for respiratory distress. Found outside apartment building today and labored breathing. Witnesses told EMS she has history of asthma. Patient appeared to have diffuse wheezing bilaterally with crackles. Was started on CPAP, given nitroglycerin 3. Patient appears to be in distress still. Unable to provide any additional history at this time. Reported smoking history. No reported fevers or chills. No other aggravating relieving factors. No other associated symptoms Allergies: Coded Allergies: No Known Allergies (Unverified , 05/17/18) Medication History Scheduled Albuterol Sulfate* (Proair Hfa*), 2 PUFFS INH Q6H, (Reported) Amlodipine Besylate (Norvasc), 10 MG ORAL DAILY, (Reported) Losartan Potassium* (Losartan Potassium*), 30 MG ORAL DAILY, (Reported) Tiotropium [place] (Spiriva), 2 PUFF INH DAILY, (Reported) Miscellaneous Medications Fluticasone/Vilanterol (Breo Ellipta 200-25 Mcg INH), 1 EACH IH, (Reported) Unable to Obtain Medications (Unable To Obtain Meds), (Reported) Patient History Limited by: medical condition History Provided By: Medical Record Healthcare decision maker N Resuscitation status Full Code Advanced Directive on File Past Medical/Surgical History Past Medical/Surgical History: (1) CHF (congestive heart failure) (2) Respiratory distress (3) Pulmonary hypertension, moderate to severe (4) Severe left ventricular systolic dysfunction (5) Cocaine abuse (6) Hypertensive emergency Review of Systems ROS Narrative Patient is unable to report subjective symptoms as she is currently intubated, intermittently confused, in 4 point restrains and unable to communicate Physical Exam General Appearance: WD/WN, alert, moderate distress, agitated, thin Lines, tubes and drains: peripheral, endotracheal tube HEENT: normocephalic, atraumatic, mucous membranes moist, PERRL - Left pupil is 3+ and Right pupil is 2+ - both briskly reactive, EOMI, supple, other - Left pupil is 3+ reactive and Right pupil is 1+ reactive. Neck: normal alignment, supple Respiratory/Chest: normal breath sounds Cardiovascular/Chest: normal peripheral pulses Abdomen: normal bowel sounds Extremities: non-tender, normal inspection, no calf tenderness, normal capillary refill, non-pitting, no edema Skin Exam: normal pigmentation, warm/dry, no diaphoresis Neurologic: alert, responsive, motor weakness - Left Upper and Lower extremity are 3/5 and Right UE/LE are 5/5 Musculoskeletal: normal muscle bulk Last 24 Hour Vital Signs Date Time Temp Pulse Resp B/P (MAP) Pulse Ox O2 Delivery O2 Flow Rate FiO2 12/19/18 21:23 95 20 100 12/19/18 19:56 91 20 100 12/19/18 19:45 127/73 12/19/18 19:15 94 20 Mechanical Ventilator 100 12/19/18 18:00 98.1 93 20 87/56 (66) 100 12/19/18 17:10 108 22 100 12/19/18 17:00 109 24 153/82 (105) 99 12/19/18 16:14 16 Mechanical Ventilator 15.0 100 12/19/18 16:00 96.1 107 24 165/101 (122) 100 12/19/18 16:00 108 12/19/18 16:00 100 12/19/18 15:30 108 12/19/18 15:30 97.2 114 18 174/96 100 Mechanical Ventilator 15.0 100 12/19/18 15:30 Mechanical Ventilator 12/19/18 15:29 115 24 100 12/19/18 15:02 97.1 119 15 179/105 100 Mechanical Ventilator 15.0 100 12/19/18 14:23 15.0 100 12/19/18 14:00 97.2 115 18 203/108 100 Mechanical Ventilator 15.0 100 12/19/18 13:01 125 16 Mechanical Ventilator 100 12/19/18 13:00 117 16 228/120 100 Mechanical Ventilator 12/19/18 13:00 125 16 100 12/19/18 12:59 219/63 12/19/18 12:30 97.0 118 20 178/95 100 Mechanical Ventilator 12/19/18 12:00 127 16 100 12/19/18 11:52 98.3 12/19/18 11:14 219/63 12/19/18 11:11 98.3 117 27 224/173 100 Bi-pap 15.0 100 12/19/18 11:09 224/173 12/19/18 11:04 197/125 12/19/18 10:58 120 24 99 Facial 100 12/19/18 10:27 98.3 114 24 234/140 99 Bi-pap 15.0 100 12/19/18 10:21 119 21 99 Bi-pap 100 12/19/18 10:08 124 28 99 Bi-pap 100 12/19/18 09:55 120 26 99 Bi-pap 100 12/19/18 09:37 125 28 Bi-pap 100 12/19/18 09:35 15.0 100 12/19/18 09:35 125 28 99 Facial 100 12/19/18 09:33 98.3 123 30 196/130 100 Bi-pap 15.0 100 12/19/18 09:27 125 30 196/130 99 Bi-pap Laboratory Tests Test 12/19/18 09:30 12/19/18 11:15 12/19/18 12:15 12/19/18 13:05 White Blood Count 10.8 K/UL (4.8-10.8) Red Blood Count 5.21 M/UL (4.20-5.40) Hemoglobin 13.8 G/DL (12.0-16.0) Hematocrit 44.8 % (37.0-47.0) Mean Corpuscular Volume 86 FL (80-99) Mean Corpuscular Hemoglobin 26.5 PG (27.0-31.0) L Mean Corpuscular Hemoglobin Concent 30.8 G/DL (32.0-36.0) L Red Cell Distribution Width 16.7 % (11.6-14.8) H Platelet Count 570 K/UL (150-450) H Mean Platelet Volume 5.6 FL (6.5-10.1) L Neutrophils (%) (Auto) 77.3 % (45.0-75.0) H Lymphocytes (%) (Auto) 14.7 % (20.0-45.0) L Monocytes (%) (Auto) 5.5 % (1.0-10.0) Eosinophils (%) (Auto) 0.9 % (0.0-3.0) Basophils (%) (Auto) 1.7 % (0.0-2.0) Sodium Level 140 MMOL/L (136-145) Potassium Level 4.3 MMOL/L (3.5-5.1) Chloride Level 104 MMOL/L (98-107) Carbon Dioxide Level 23 MMOL/L (21-32) Anion Gap 13 mmol/L (5-15) Blood Urea Nitrogen 9 mg/dL (7-18) Creatinine 1.0 MG/DL (0.55-1.30) Estimat Glomerular Filtration Rate > 60 mL/min (>60) Glucose Level 246 MG/DL (74-106) H Lactic Acid Level 3.70 mmol/L (0.4-2.0) H 3.90 mmol/L (0.66-2.22) H Calcium Level 8.7 MG/DL (8.5-10.1) Total Bilirubin 0.7 MG/DL (0.2-1.0) Aspartate Amino Transf (AST/SGOT) 38 U/L (15-37) H Alanine Aminotransferase (ALT/SGPT) 79 U/L (12-78) H Alkaline Phosphatase 233 U/L (46-116) H Creatine Kinase MB 1.6 NG/ML (0.0-3.6) Troponin I 0.022 ng/mL (0.000-0.056) Pro-B-Type Natriuretic Peptide 2953 pg/mL (0-125) H Total Protein 7.7 G/DL (6.4-8.2) Albumin 3.0 G/DL (3.4-5.0) L Globulin 4.7 g/dL Albumin/Globulin Ratio 0.6 (1.0-2.7) L Urine Color Pale yellow Urine Appearance Clear Urine pH 7 (4.5-8.0) Urine Specific [place] 1.010 (1.005-1.035) Urine Protein 3+ (NEGATIVE) H Urine Glucose (UA) 4+ (NEGATIVE) H Urine Ketones Negative (NEGATIVE) Urine Blood 2+ (NEGATIVE) H Urine Nitrite Negative (NEGATIVE) Urine Bilirubin Negative (NEGATIVE) Urine Urobilinogen Normal MG/DL (0.0-1.0) Urine Leukocyte Esterase Negative (NEGATIVE) Urine RBC 2-4 /HPF (0 - 2) H Urine WBC 0-2 /HPF (0 - 2) Urine Squamous Epithelial Cells Few /LPF (NONE/OCC) Urine Bacteria Few /HPF (NONE) Urine Opiates Screen Negative (NEGATIVE) Urine Barbiturates Screen Negative (NEGATIVE) Phencyclidine (PCP) Screen Negative (NEGATIVE) Urine Amphetamines Screen Negative (NEGATIVE) Urine Benzodiazepines Screen Negative (NEGATIVE) Urine Cocaine Screen Positive (NEGATIVE) H Urine Marijuana (THC) Screen Negative (NEGATIVE) Arterial Blood pH 7.099 (7.350-7.450) Arterial Blood Partial Pressure CO2 74.3 mmHg (35.0-45.0) *H Arterial Blood Partial Pressure O2 60.0 mmHg (75.0-100.0) L Arterial Blood HCO3 22.5 mmol/L (22.0-26.0) Arterial Blood Oxygen Saturation 80.3 % (95-100) *L Arterial Blood Base Excess -8.8 (-2-2) L Theo Test Positive Test 12/19/18 16:50 12/19/18 20:00 12/19/18 21:09 Arterial Blood pH 7.280 (7.350-7.450) Arterial Blood Partial Pressure CO2 57.4 mmHg (35.0-45.0) *H Arterial Blood Partial Pressure O2 66.9 mmHg (75.0-100.0) L Arterial Blood HCO3 26.4 mmol/L (22.0-26.0) H Arterial Blood Oxygen Saturation 90.1 % (95-100) L Arterial Blood Base Excess -1.6 (-2-2) Theo Test Positive Lactic Acid Level 5.70 mmol/L (0.4-2.0) H Troponin I Pending Height (Feet): 5 Height (Inches): 6.00 Weight (Pounds): 115 Medications Current Medications Medications (Trade) Dose Ordered Sig/Alisia Route PRN Reason Start Time Stop Time Status Last Admin Dose Admin Acetaminophen (Tylenol) 650 mg Q4H PRN ORAL Fever 12/19/18 13:30 01/18/19 13:29 Albuterol/ Ipratropium (Albuterol/ Ipratropium) 3 ml Q4H PRN HHN Shortness of Breath 12/19/18 13:30 12/24/18 13:29 Amlodipine Besylate (Norvasc) 10 mg DAILY ORAL 12/20/18 09:00 01/19/19 08:59 Chlorhexidine Gluconate (Zoraida-Hex 2%) 1 applic DAILY@2000 TOPIC 12/19/18 20:00 01/18/19 19:59 Dextrose (Dextrose 50%) STAT PRN IV Hypoglycemia 12/19/18 13:30 01/18/19 13:29 Dopamine HCl/ Dextrose 250 ml @ 0 mls/hr Q24H IV 12/19/18 19:45 01/18/19 19:44 Furosemide (Lasix) 40 mg EVERY 8 HOURS IV 12/19/18 14:00 01/18/19 13:59 12/19/18 14:00 Heparin Sodium (Porcine) (Heparin 5000 units/ml) 5,000 units EVERY 12 HOURS SUBQ 12/19/18 21:00 01/18/19 20:59 12/19/18 21:03 Heparin Sodium/ Sodium Chloride (Heparin 1000 units/500ml Premix) 1,000 unit ONCE PRN IV PICC LINE 12/19/18 19:15 12/21/18 19:14 Lidocaine HCl (Xylocaine 1% 30ml) 30 ml ONCE PRN INJ PICC LINE 12/19/18 19:15 12/21/18 19:14 Lorazepam (Ativan 2mg/ml 1ml) 2 mg Q4H PRN IV For Anxiety 12/19/18 13:30 12/26/18 13:29 Losartan Potassium (Cozaar) 30 mg DAILY ORAL 12/20/18 09:00 01/19/19 08:59 UNV Morphine Sulfate (Morphine Sulfate) 4 mg Q4H PRN IVP For Pain 12/19/18 13:30 12/26/18 13:29 Nitroglycerin (Ntg) 0.4 mg Q5M PRN SL Prn Chest Pain 12/19/18 11:00 01/18/19 10:59 12/19/18 11:14 Ondansetron HCl (Zofran) 4 mg Q6H PRN IVP Nausea & Vomiting 12/19/18 13:30 01/18/19 13:29 Pantoprazole (Protonix) 40 mg DAILY IV 12/20/18 09:00 01/19/19 08:59 Polyethylene Glycol (Miralax) 17 gm DAILYPRN PRN ORAL Constipation 12/19/18 13:30 01/18/19 13:29 Temazepam (Restoril) 15 mg HSPRN PRN ORAL Insomnia 12/19/18 13:30 12/26/18 13:29 Assessment/Plan Problem List: (1) Altered mental state Assessment & Plan: Acute Encephalopathy, Toxic vs Metabolic Secondary to Cocaine Use / Resp Failure/ CHF Exacerbation Wean ETT as able CT Brain to r/o acute bleed Consider MRI if CT NAD Q4 Hour Neuro Obs Correct Lytes Maintain Normothermia Normoglycemia - use ISS as needed Na 135-145 [facility] Protocol - Banana Bag / Thiamine Ativan 1mg as needed for agitation ICD Codes: R41.82 - Altered mental status, unspecified SNOMED: 739313382 (2) CHF (congestive heart failure) ICD Codes: I50.9 - Heart failure, unspecified SNOMED: 85007394 Qualifiers: Qualified Codes: I50.9 - Heart failure, unspecified (3) Acute respiratory failure Assessment & Plan: Wean vent as able ICD Codes: J96.00 - Acute respiratory failure, unspecified whether with hypoxia or hypercapnia SNOMED: 68694709 (4) Cocaine abuse Assessment & Plan: [facility] Protocol - Consider Assessment prior to extubation ICD Codes: F14.10 - Cocaine abuse, uncomplicated SNOMED: 94248979 (5) Hypertensive emergency Assessment & Plan: Maintain BP< 140-160 ICD Codes: I16.1 - Hypertensive emergency SNOMED: 616769687154289 (6) Respiratory distress ICD Codes: R06.03 - Acute respiratory distress SNOMED: 896344387 Juliane Chaidez N.P. Dec 19, 2018 21:49
--- NOTE | 2018-12-19 22:10 | NUR ---
NURSE NOTES: HS Care rendered.Suctioned.Confused,disoriented.Restless and agitated Re-oriented,re-assured.Medicated.Pos. chg.Backrub with lotion.made comfortable.Due named account executive.Maintain on Bila.soft wrist restraints prev.self-injury.Diuresis well Fr.lasix garcia.
[2018-12-19] MEDS: LORazepam Inj 2mg/ml 1ml IV PRN (22:52)
[2018-12-20] VITALS (24 sets, daily range): BP systolic 137–170; BP diastolic 77–123
--- NOTE | 2018-12-20 00:15 | NUR ---
NURSE NOTES: Asleep.Pos. chg.Suctioned.Sat.-100%.See V/S.Scope rhythm same.No distress.Cont.Plan of care.
--- NOTE | 2018-12-20 02:00 | NUR ---
NURSE NOTES: Repositioned,Suctioned.Status same.No distress.
--- NOTE | 2018-12-20 04:00 | NUR ---
NURSE NOTES: Pos.chg.Suctioned.NS Lavaged.Jag.Vent settings.Restless/Trashing in bed off/on.Bathe,linen chg.Kept comfortable.Blood drawn for cbc/bmp and renal func.panel spec.to Lab.Cont.Plan of care.
[2018-12-20 05:24] LABS: HEMATOCRIT 38.3 % (37.0-47.0); HEMOGLOBIN 12.4 G/DL (12.0-16.0); MEAN CORPUSCULAR VOLUME 83 FL (80-99); PLATELET COUNT 459 K/UL (150-450); RED BLOOD COUNT 4.63 M/UL (4.20-5.40); RED CELL DISTRIBUTION WIDTH 16.2 % (11.6-14.8); WHITE BLOOD COUNT 15.7 K/UL (4.8-10.8)
[2018-12-20] MEDS: LORazepam Inj 2mg/ml 1ml IV PRN ×3 (05:40→16:54)
[2018-12-20 05:49] LABS: ALBUMIN 2.4 G/DL (3.4-5.0); ANION GAP 14 mmol/L (5-15); BLOOD UREA NITROGEN 15 mg/dL (7-18); CALCIUM 8.6 MG/DL (8.5-10.1); CARBON DIOXIDE 26 MMOL/L (21-32); CHLORIDE 106 MMOL/L (98-107); CREATININE 1.5 MG/DL (0.55-1.30); PHOSPHORUS 2.5 MG/DL (2.5-4.9); POTASSIUM 3.2 MMOL/L (3.5-5.1); SODIUM 146 MMOL/L (136-145)
--- NOTE | 2018-12-20 07:22 | NUR ---
HAND-OFF: Report given to LINDA DAVILA.
--- NOTE | 2018-12-20 07:35 | NUR ---
RESPIRATORY NOTE: received pt intubated with ETT 7.0, placed 24cm at the lip. ETT secured via anchor fast with no redness or skin breakdown visible around facial/neck area. pt on current vent settings with alarms set and audible. ambu bag at bedside with vent plugged into redoutlet. will cont to monitor.
--- NOTE | 2018-12-20 08:20 | NUR ---
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 Satisfactory endotracheal intubation. IS:SOLU-MEDROL 125mg IV NS x500 ml IV ATROVENT 500mcg HHN PROVENTIL 5mg HHN MORPHINE 2mg IVP ATIVAN 1mg IV AZITHROMYCIN 275ml IV ZOSYN 110ml IVPB LASIX 40mg IV APRESOLINE 10mg IV ADMITTED TO ICU DEPENDING ON COURSE OF CARE TO DETERMINE DC PLANS
[2018-12-20] MEDS ORDERED: Pantoprazole Inj IV SCH (09:00)
[2018-12-20] MEDS ORDERED: Losartan 25mg tab ORAL SCH (09:00)
--- NOTE | 2018-12-20 09:26 | Pulmonolgy Critical Care Note ---
Critical Care - Asmt/Plan Problems: (1) Acute respiratory failure (2) Hypertensive emergency (3) COPD (chronic obstructive pulmonary disease) (4) Severe left ventricular systolic dysfunction (5) Pulmonary hypertension, moderate to severe (6) Pulmonary edema (7) Cocaine abuse Respiratory: monitor respiratory rate, adjust FIO2, CXR Cardiac: continue pressors, continue to monitor HR/BP Renal: F/U I&O, keep IV fluid Infectious Disease: other Gastrointestinal: start feedings, other - nutrition evaluation Endocrine: monitor blood sugar Hematologic: monitor H/H, transfuse if hgb<8.5 Neurologic: PRN Ativan, PRN Morphine, keep patient comfortable Prophylaxis: Heparin Time Spent (Minutes): 40 Notes Reviewed: hop separator, renal Discussed with: nurses, consultants, case manager specialistathlete manager - Objective Last 24 Hour Vital Signs Date Time Temp Pulse Resp B/P (MAP) Pulse Ox O2 Delivery O2 Flow Rate FiO2 12/20/18 08:42 85 20 40 12/20/18 08:00 50 12/20/18 08:00 90 12/20/18 08:00 Mechanical Ventilator 12/20/18 08:00 98.2 87 20 154/84 (107) 100 12/20/18 07:30 89 20 100 12/20/18 07:00 87 20 156/78 (104) 100 12/20/18 06:00 89 20 162/86 (111) 100 12/20/18 05:33 96 21 100 12/20/18 05:00 83 20 160/82 (108) 100 12/20/18 04:00 Mechanical Ventilator 12/20/18 04:00 98.6 90 20 139/86 (103) 100 12/20/18 04:00 100 12/20/18 04:00 90 12/20/18 03:26 87 20 100 12/20/18 03:00 85 20 150/92 (111) 100 12/20/18 02:00 87 20 152/77 (102) 100 12/20/18 01:24 94 20 100 12/20/18 01:00 95 20 144/78 (100) 100 12/20/18 00:00 98 12/20/18 00:00 Mechanical Ventilator 12/20/18 00:00 98.3 98 20 147/84 (105) 100 12/19/18 23:15 101 20 100 12/19/18 23:00 101 20 134/82 (99) 100 12/19/18 22:00 98 20 139/82 (101) 100 12/19/18 21:23 95 20 100 12/19/18 21:00 94 20 123/75 (91) 100 12/19/18 20:00 100 12/19/18 20:00 97.6 93 20 127/73 (91) 100 12/19/18 20:00 Mechanical Ventilator 12/19/18 20:00 93 12/19/18 19:56 91 20 100 12/19/18 19:45 127/73 12/19/18 19:15 94 20 Mechanical Ventilator 100 12/19/18 19:00 92 20 102/61 (75) 100 12/19/18 18:00 98.1 93 20 87/56 (66) 100 12/19/18 17:10 108 22 100 12/19/18 17:00 109 24 153/82 (105) 99 12/19/18 16:14 16 Mechanical Ventilator 15.0 100 12/19/18 16:00 96.1 107 24 165/101 (122) 100 12/19/18 16:00 108 12/19/18 16:00 100 12/19/18 15:30 108 12/19/18 15:30 97.2 114 18 174/96 100 Mechanical Ventilator 15.0 100 12/19/18 15:30 Mechanical Ventilator 12/19/18 15:29 115 24 100 12/19/18 15:02 97.1 119 15 179/105 100 Mechanical Ventilator 15.0 100 12/19/18 14:23 15.0 100 12/19/18 14:00 97.2 115 18 203/108 100 Mechanical Ventilator 15.0 100 12/19/18 13:01 125 16 Mechanical Ventilator 100 12/19/18 13:00 117 16 228/120 100 Mechanical Ventilator 12/19/18 13:00 125 16 100 12/19/18 12:59 219/63 12/19/18 12:30 97.0 118 20 178/95 100 Mechanical Ventilator 12/19/18 12:00 127 16 100 12/19/18 11:52 98.3 12/19/18 11:14 219/63 12/19/18 11:11 98.3 117 27 224/173 100 Bi-pap 15.0 100 12/19/18 11:09 224/173 12/19/18 11:04 197/125 12/19/18 10:58 120 24 99 Facial 100 12/19/18 10:27 98.3 114 24 234/140 99 Bi-pap 15.0 100 12/19/18 10:21 119 21 99 Bi-pap 100 12/19/18 10:08 124 28 99 Bi-pap 100 12/19/18 09:55 120 26 99 Bi-pap 100 12/19/18 09:37 125 28 Bi-pap 100 12/19/18 09:35 15.0 100 12/19/18 09:35 125 28 99 Facial 100 12/19/18 09:33 98.3 123 30 196/130 100 Bi-pap 15.0 100 12/19/18 09:27 125 30 196/130 99 Bi-pap Status: sedated Condition: critical HEENT: atraumatic Neck: full ROM Heart: HR/BP stable Abdomen: soft, active bowel sounds Extremities: no C/C/E Decubiti: location Critical Care - Subjective ROS Limited/Unobtainable: Yes Interval Events: sedated, orally intubated FI02: 40 Vent Support Breath Rate: 20 Vent Support Mode: AC Vent Tidal Volume: 650 Sputum Amount: Scant PEEP: 5.0 PIP: 28 I&O: Intake and Output 12/19/18 12/20/18 19:00 07:00 Intake Total 1851 ml Output Total 840 ml 1330 ml Balance 1011 ml -1330 ml Intake Oral 0 ml IV Total 1831 ml Other 20 ml Output Urine Total 840 ml 1330 ml # Voids 6 CXR: pulmonary edema ET-Tube: 7.0 ET Position: 24 Labs: Laboratory Tests Test 12/19/18 09:30 12/19/18 11:15 12/19/18 12:15 12/19/18 13:05 White Blood Count 10.8 K/UL (4.8-10.8) Red Blood Count 5.21 M/UL (4.20-5.40) Hemoglobin 13.8 G/DL (12.0-16.0) Hematocrit 44.8 % (37.0-47.0) Mean Corpuscular Volume 86 FL (80-99) Mean Corpuscular Hemoglobin 26.5 PG (27.0-31.0) L Mean Corpuscular Hemoglobin Concent 30.8 G/DL (32.0-36.0) L Red Cell Distribution Width 16.7 % (11.6-14.8) H Platelet Count 570 K/UL (150-450) H Mean Platelet Volume 5.6 FL (6.5-10.1) L Neutrophils (%) (Auto) 77.3 % (45.0-75.0) H Lymphocytes (%) (Auto) 14.7 % (20.0-45.0) L Monocytes (%) (Auto) 5.5 % (1.0-10.0) Eosinophils (%) (Auto) 0.9 % (0.0-3.0) Basophils (%) (Auto) 1.7 % (0.0-2.0) Sodium Level 140 MMOL/L (136-145) Potassium Level 4.3 MMOL/L (3.5-5.1) Chloride Level 104 MMOL/L (98-107) Carbon Dioxide Level 23 MMOL/L (21-32) Anion Gap 13 mmol/L (5-15) Blood Urea Nitrogen 9 mg/dL (7-18) Creatinine 1.0 MG/DL (0.55-1.30) Estimat Glomerular Filtration Rate > 60 mL/min (>60) Glucose Level 246 MG/DL (74-106) H Lactic Acid Level 3.70 mmol/L (0.4-2.0) H 3.90 mmol/L (0.66-2.22) H Calcium Level 8.7 MG/DL (8.5-10.1) Total Bilirubin 0.7 MG/DL (0.2-1.0) Aspartate Amino Transf (AST/SGOT) 38 U/L (15-37) H Alanine Aminotransferase (ALT/SGPT) 79 U/L (12-78) H Alkaline Phosphatase 233 U/L (46-116) H Creatine Kinase MB 1.6 NG/ML (0.0-3.6) Troponin I 0.022 ng/mL (0.000-0.056) Pro-B-Type Natriuretic Peptide 2953 pg/mL (0-125) H Total Protein 7.7 G/DL (6.4-8.2) Albumin 3.0 G/DL (3.4-5.0) L Globulin 4.7 g/dL Albumin/Globulin Ratio 0.6 (1.0-2.7) L Urine Color Pale yellow Urine Appearance Clear Urine pH 7 (4.5-8.0) Urine Specific [place] 1.010 (1.005-1.035) Urine Protein 3+ (NEGATIVE) H Urine Glucose (UA) 4+ (NEGATIVE) H Urine Ketones Negative (NEGATIVE) Urine Blood 2+ (NEGATIVE) H Urine Nitrite Negative (NEGATIVE) Urine Bilirubin Negative (NEGATIVE) Urine Urobilinogen Normal MG/DL (0.0-1.0) Urine Leukocyte Esterase Negative (NEGATIVE) Urine RBC 2-4 /HPF (0 - 2) H Urine WBC 0-2 /HPF (0 - 2) Urine Squamous Epithelial Cells Few /LPF (NONE/OCC) Urine Bacteria Few /HPF (NONE) Urine Opiates Screen Negative (NEGATIVE) Urine Barbiturates Screen Negative (NEGATIVE) Phencyclidine (PCP) Screen Negative (NEGATIVE) Urine Amphetamines Screen Negative (NEGATIVE) Urine Benzodiazepines Screen Negative (NEGATIVE) Urine Cocaine Screen Positive (NEGATIVE) H Urine Marijuana (THC) Screen Negative (NEGATIVE) Arterial Blood pH 7.099 (7.350-7.450) Arterial Blood Partial Pressure CO2 74.3 mmHg (35.0-45.0) *H Arterial Blood Partial Pressure O2 60.0 mmHg (75.0-100.0) L Arterial Blood HCO3 22.5 mmol/L (22.0-26.0) Arterial Blood Oxygen Saturation 80.3 % (95-100) *L Arterial Blood Base Excess -8.8 (-2-2) L Theo Test Positive Test 12/19/18 16:50 12/19/18 20:00 12/19/18 21:09 12/19/18 23:05 Arterial Blood pH 7.280 (7.350-7.450) Arterial Blood Partial Pressure CO2 57.4 mmHg (35.0-45.0) *H Arterial Blood Partial Pressure O2 66.9 mmHg (75.0-100.0) L Arterial Blood HCO3 26.4 mmol/L (22.0-26.0) H Arterial Blood Oxygen Saturation 90.1 % (95-100) L Arterial Blood Base Excess -1.6 (-2-2) Theo Test Positive Lactic Acid Level 5.70 mmol/L (0.4-2.0) H 6.60 mmol/L (0.66-2.22) H Troponin I 0.081 ng/mL (0.000-0.056) Test 12/20/18 04:25 12/20/18 05:00 12/20/18 06:20 White Blood Count 15.7 K/UL (4.8-10.8) H Red Blood Count 4.63 M/UL (4.20-5.40) Hemoglobin 12.4 G/DL (12.0-16.0) Hematocrit 38.3 % (37.0-47.0) Mean Corpuscular Volume 83 FL (80-99) Mean Corpuscular Hemoglobin 26.7 PG (27.0-31.0) L Mean Corpuscular Hemoglobin Concent 32.2 G/DL (32.0-36.0) Red Cell Distribution Width 16.2 % (11.6-14.8) H Platelet Count 459 K/UL (150-450) H Mean Platelet Volume 5.7 FL (6.5-10.1) L Neutrophils (%) (Auto) % (45.0-75.0) Lymphocytes (%) (Auto) % (20.0-45.0) Monocytes (%) (Auto) % (1.0-10.0) Eosinophils (%) (Auto) % (0.0-3.0) Basophils (%) (Auto) % (0.0-2.0) Sodium Level 146 MMOL/L (136-145) H Potassium Level 3.2 MMOL/L (3.5-5.1) L Chloride Level 106 MMOL/L (98-107) Carbon Dioxide Level 26 MMOL/L (21-32) Anion Gap 14 mmol/L (5-15) Blood Urea Nitrogen 15 mg/dL (7-18) Creatinine 1.5 MG/DL (0.55-1.30) H Estimat Glomerular Filtration Rate 42.9 mL/min (>60) Glucose Level 137 MG/DL (74-106) #H Calcium Level 8.6 MG/DL (8.5-10.1) Phosphorus Level 2.5 MG/DL (2.5-4.9) Troponin I 0.091 ng/mL (0.000-0.056) Albumin 2.4 G/DL (3.4-5.0) L Lactic Acid Level 5.10 mmol/L (0.4-2.0) H 4.20 mmol/L (0.66-2.22) H Arsalan Noe MD Dec 20, 2018 09:26
--- NOTE | 2018-12-20 09:30 | NUR ---
NURSE NOTES: Dr. Noe updated on patient condition, will place orders for potassium, labs and urine culture, no further orders given at this time.
[2018-12-20] MEDS: Heparin 5000 units/ml inj SUBQ SCH ×2 (09:53→20:50)
[2018-12-20 10:01] LABS: CREATINE KINASE 156 U/L (26-308)
--- NOTE | 2018-12-20 10:05 | NUR ---
RADIOLOGY DEPT., CHEST X-RAY DONE.-P.DYE
--- NOTE | 2018-12-20 10:18 | Diagnostic Imaging Report ---
Indication: Status post orogastric tube readjustment Technique: Supine view of the abdomen Comparison: 2 hours earlier Findings: Unchanged position of orogastric tube, tip projected level gastric fundus, proximal sidehole at the level of the gastroesophageal junction. Pulmonary pleural and parenchymal disease is unchanged Impression: Persistent high position of orogastric tube Other stable findings as described This agrees with the preliminary interpretation provided overnight by [facility] teleradiology service.
--- NOTE | 2018-12-20 10:42 | NUR ---
RD ASSESSMENT & RECOMMENDATIONS SEE CARE ACTIVITY FOR COMPLETE ASSESSMENT DAILY ESTIMATED NEEDS: Needs based on cardiac, critical care/ 53.6kg 22-28 kcals/kg 0261-1651 total kcals 1.2-2 g protein/kg 64-107 g total protein 25-30 mL/kg 5476-4278 total fluid mLs NUTRITION DIAGNOSIS: * Swallowing difficulty R/T respiratory status as evidenced by s/p intubation, pending OGT w/ feeds if unable to wean. ENTERAL NUTRITION RECOMMENDATIONS: Vital AF 1.2 @45ml/hr x24 hrs to provide 1080ml, 1296 kcal (24kcal/kg), 81g pro, 876ml free H2O - If unable to wean, obtain GI access, start VITAL AF 1.2 @15ml/hr for 6 hrs. 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
--- NOTE | 2018-12-20 10:54 | NUR ---
*-* INSURANCE *-* ALL CLINICALS AND REVIEWS HAVE BEEN FAXED TO: [employer]: [place] P- [phone] [id number] F- [phone]...........REVIEW/CLINICAL
[2018-12-20] MEDS ORDERED: Potassium Chloride 40 MEQ in Sodium Chloride 550 ML IVPB ONE (11:00)
--- NOTE | 2018-12-20 11:00 | NUR ---
NURSE NOTES: Potassium 40mEq started in left hand 20G IV, blood return noted while flushing line, no leaking or induration noted, will continue to monitor.
--- NOTE | 2018-12-20 11:01 | Diagnostic Imaging Report ---
APPROVED REPORT CPT Code: 86953 Present Symptoms Comments: BILATERAL LEGS PAIN. BILATERAL: Imaging reveals a patent deep venous system bilaterally. There is no evidence of thrombus within the femoral, popliteal or tibial segments. The greater saphenous veins are also within normal limits. Doppler indicates normal spontaneous flow within these segments.
--- NOTE | 2018-12-20 11:45 | NUR ---
NURSE NOTES: Dr. Wright updated on patient urine output, no verbal orders given at this time.
--- NOTE | 2018-12-20 12:07 | Consultation ---
Consult Note Consult Note asked to eval for rising Cr 58-year-old female presents ED for evaluation. Patient brought in by EMS for respiratory distress. Found outside apartment building today and labored breathing. Witnesses told EMS she has history of asthma. Patient appeared to have diffuse wheezing bilaterally with crackles. Was started on CPAP, given nitroglycerin 3. Patient appears to be in distress still. Unable to provide any additional history at this time. Reported smoking history. No reported fevers or chills. No other aggravating relieving factors. No other associated symptoms No Known Allergies (Unverified , 05/17/18) Past Medical History: HTN, asthma, COPD Past Medical History: No History, Except For Hx Cardiac Problems: Yes Hx Hypertension: Yes Hx Asthma: Yes Hx COPD: Yes examined intubated on vent discussed with color grinder/Plan Acute renal failure- multi factorial due to one or more of following: (1) Acute respiratory failure on vent (2) Hypertensive emergency (3) COPD (chronic obstructive pulmonary disease) (4) Severe left ventricular systolic dysfunction, Low ej fx (5) Pulmonary hypertension, moderate to severe (6) Pulmonary edema (7) Cocaine abuse Adjust BP meds Avoid Nephrotoxics Pulmonary support Aim to reduce afterload per orders Simeon Wright MD Dec 20, 2018 12:07
[2018-12-20 12:14] LABS: APPEARANCE,URINE CLEAR; BILIRUBIN, URINE NEGATIVE (NEGATIVE); COLOR,URINE PALE YELLOW; GLUCOSE, URINE (UA) NEGATIVE (NEGATIVE); KETONES,URINE NEGATIVE (NEGATIVE); LEUKOCYTE ESTERASE ,URINE NEGATIVE (NEGATIVE); NITRITE,URINE NEGATIVE (NEGATIVE); PH,URINE 9 (4.5-8.0); PROTEIN,URINE NEGATIVE (NEGATIVE); UROBILINOGEN,URINE NORMAL MG/DL (0.0-1.0)
--- NOTE | 2018-12-20 12:28 | Cardiology Report ---
APPROVED REPORT EKG Measurement Heart [id number] Sinus tachycardia Biatrial enlargement Left anterior fascicular block Cannot rule out Inferior infarct (masked by fascicular block?), age undetermined Anterior infarct, age undetermined Abnormal ECG
--- NOTE | 2018-12-20 13:35 | NUR ---
NURSE NOTES: CT scan reschduled for 1430 due to ER admission, will continue to monitor.
--- NOTE | 2018-12-20 14:09 | Diagnostic Imaging Report ---
Indication: Dyspnea Technique: One view of the chest Comparison: 12/19/2018 Findings: Interim placement of a gastric tube, tip of which projects beyond the edge of image. Stable satisfactory position of endotracheal tube. Interim marked improvement of previously demonstrated interstitial and airspace edema. There is some residual interstitial disease, but this is minimal. There is some chronic appearing reticular nodular opacity in the right lung apex. Air cyst in the right upper lung is again demonstrated. Previously demonstrated pleural fluid has improved Impression: Interim gastric tube placement, also demonstrated on recent abdominal radiograph Marked improvement of previously demonstrated interstitial and airspace edema and bilateral pleural fluid
--- NOTE | 2018-12-20 15:21 | NUR ---
Social Service Note Unable to interview patient at this time due to medical condition, orally intubated. SW familiar with patient from admission in 07/2018. At that time patient was homeless for about a year and contributed her homelessness to her parents dying, lack of money and poor choices. Patient was living in a tent with a friend and didn't utilize shelters. Patient stated at that time [facility] was her preferred hospital. SW will reassess patient once appropriate. Patient indicated her grandmother BEAR Wood was her emergency contact but didn't have her phone number. Patient admitted to cocaine use. Will monitor and follow up.
--- NOTE | 2018-12-20 15:30 | NUR ---
NURSE NOTES: Malia Espinoza assessed patient at the bedside, awaiting for CT scan to be taken, no verbal orders given at this time.
--- NOTE | 2018-12-20 17:30 | NUR ---
NURSE NOTES: CT scan completed and patient remains stable, no respiratory distress with RR 20-24 and saturating at 100% with ambu-bag, she remained still and drowsy with sedation given, will continue to monitor.
--- NOTE | 2018-12-20 18:29 | Diagnostic Imaging Report ---
Indications: Altered mental status Technique: Spiral acquisitions obtained through the brain. Angled axial and coronal 5 x 5 mm slices were reconstructed. Total dose length product 1552.02 mGycm. CTDI vol(s) 70.38,70.38 mGy. Dose reduction achieved using automated exposure control Comparison: None. Findings: Old lacunar infarcts are seen in the anterior basal ganglia bilaterally. There is periventricular deep white matter low-attenuation consistent with chronic ischemic change. Normal size ventricles and extra axial CSF spaces. No acute intracranial hemorrhage nor edema, mass effect, nor midline shift. Otherwise normal stafford-white differentiation. Intact calvarium Impression: Chronic and age-related changes, including old bilateral basal ganglia lacunar infarct Negative for acute intracranial bleed or mass effect The CT scanner at [facility] is accredited by the [employer] and the scans are performed using protocols designed to limit radiation exposure to as low as reasonably achievable to attain images of sufficient resolution adequate for diagnostic evaluation.
--- NOTE | 2018-12-20 19:29 | NUR ---
HAND-OFF: Report given to LINDA Cruz.
--- NOTE | 2018-12-20 19:30 | NUR ---
NURSE NOTES: Revcd.on a vent.orally intubated.See settings.Lungs few scatt.Rh.P.Ox-100%.Suctioned Th.whitish/yellow sec.NS Lavaged.Pos. chg.Restless,agitated.Disoriented.Re-oriented,Re-assured.On Bila, soft wrist restraints prev.self-injury.NPO.F/Cath.intact patent diuresis well.See I/O.
[2018-12-20] MEDS: Pantoprazole Inj IV SCH (20:48)
--- NOTE | 2018-12-20 22:00 | NUR ---
NURSE NOTES: HS care rendered.Pos.chg.Backrub with Lotion.kept comfortable.Suctioned.Due medicaid billing clerk.Cont.to diuresis well.Breathe sound much improved.
--- NOTE | 2018-12-20 23:44 | Neurology Progress Note ---
Interim History Interim History ROS Limited/Unobtainable: Yes Complaints: AMS Events: No overnight events reported - will be on ETT weaning trials soon. Review of Systems Neuro Review of Systems No changes to MS reported . All Systems: reviewed and negative except above Objective Physical Exam Last Vital Signs Date Time Temp Pulse Resp B/P (MAP) Pulse Ox O2 Delivery O2 Flow Rate FiO2 12/20/18 22:40 67 20 40 12/20/18 20:00 98.7 137/79 (98) 100 12/20/18 20:00 Mechanical Ventilator 12/19/18 16:14 15.0 Laboratory Tests Test 12/20/18 04:25 12/20/18 05:00 12/20/18 06:20 12/20/18 10:00 White Blood Count 15.7 K/UL (4.8-10.8) H Red Blood Count 4.63 M/UL (4.20-5.40) Hemoglobin 12.4 G/DL (12.0-16.0) Hematocrit 38.3 % (37.0-47.0) Mean Corpuscular Volume 83 FL (80-99) Mean Corpuscular Hemoglobin 26.7 PG (27.0-31.0) L Mean Corpuscular Hemoglobin Concent 32.2 G/DL (32.0-36.0) Red Cell Distribution Width 16.2 % (11.6-14.8) H Platelet Count 459 K/UL (150-450) H Mean Platelet Volume 5.7 FL (6.5-10.1) L Neutrophils (%) (Auto) % (45.0-75.0) Lymphocytes (%) (Auto) % (20.0-45.0) Monocytes (%) (Auto) % (1.0-10.0) Eosinophils (%) (Auto) % (0.0-3.0) Basophils (%) (Auto) % (0.0-2.0) Sodium Level 146 MMOL/L (136-145) H Potassium Level 3.2 MMOL/L (3.5-5.1) L Chloride Level 106 MMOL/L (98-107) Carbon Dioxide Level 26 MMOL/L (21-32) Anion Gap 14 mmol/L (5-15) Blood Urea Nitrogen 15 mg/dL (7-18) Creatinine 1.5 MG/DL (0.55-1.30) H Estimat Glomerular Filtration Rate 42.9 mL/min (>60) Glucose Level 137 MG/DL (74-106) #H Uric Acid 6.1 MG/DL (2.6-7.2) Calcium Level 8.6 MG/DL (8.5-10.1) Phosphorus Level 2.5 MG/DL (2.5-4.9) Total Creatine Kinase 156 U/L (26-308) Troponin I 0.091 ng/mL (0.000-0.056) Albumin 2.4 G/DL (3.4-5.0) L Lactic Acid Level 5.10 mmol/L (0.4-2.0) H 4.20 mmol/L (0.66-2.22) H Urine Color Pale yellow Urine Appearance Clear Urine pH 9 (4.5-8.0) Urine Specific [place] 1.015 (1.005-1.035) Urine Protein Negative (NEGATIVE) Urine Glucose (UA) Negative (NEGATIVE) Urine Ketones Negative (NEGATIVE) Urine Blood 2+ (NEGATIVE) H Urine Nitrite Negative (NEGATIVE) Urine Bilirubin Negative (NEGATIVE) Urine Urobilinogen Normal MG/DL (0.0-1.0) Urine Leukocyte Esterase Negative (NEGATIVE) Urine RBC 2-4 /HPF (0 - 2) H Urine WBC 0-2 /HPF (0 - 2) Urine Squamous Epithelial Cells Occasional /LPF Urine Bacteria Occasional /HPF (NONE) Urine Eosinophils None seen (NONE SEEN) Urine Random Creatinine Pending Urine Random Microalbumin Pending Urine Random Sodium 152 mmol/L (20-110) H Urine Creatinine 10.2 MG/DL (30.0-125.0) L Urine Microalbumin/Creatinine Ratio Pending Urine Potassium Timed 13 mmol/L (12-62) Test 12/20/18 18:18 Lactic Acid Level 1.70 mmol/L (0.4-2.0) General: well developed, well nourished Head: normocophalic Neck: no rigidity EENT: benign Neurologic Exam Mental Status: awake, alert Speech: other - INtubated Language: no aphasia Cranial Nerve II: fundus normal, visual georges, no papilledema Cranial Nerves III, IV, : EOMI, pupils - Left pupil > Right Pupil - both reactive Cranial Nerve V: normal facial sensations, temporales function normal Cranial Nerve VII: no facial asymmetry Cranial Nerve VIII: normal hearing Cranial Nerve XI: SCM symmetric Cranial Nerve XII: tongue midline, no tongue atrophy/fasciculations Motor System: normal muscle tone, no involuntary movement, no muscle wasting Sensory: normal pinprick, normal light touch Deep Tendon Reflexes: 1+ bicep (L), 1+ tricep (L), 1+ brachioradialis (L), 1+ knee (L), 1+ ankle (L); 2+ bicep (R), 2+ tricep (R), 2+ brachioradialis (R), 2+ knee (R), 2+ ankle (R) Reflexes: flexor plantar (L), flexor plantar (R); extensor plantar (L), extensor plantar (R) Objective Just as alert today- able to follow both midline and non midline commands. Impression/Recommendations Problems: (1) Unequal pupils Assessment & Plan: Monitor, may be drug/ metabolic toxicity vs Central cause ( CVA/Hemorrhage) CT Brain to rule out bleeding CANDY (2) Acute respiratory failure Assessment & Plan: Wean vent as able (3) Cocaine abuse Assessment & Plan: [facility] Protocol - Consider Assessment prior to extubation (4) Hypertensive emergency Assessment & Plan: Maintain BP< 140-160 (5) Altered mental state Assessment & Plan: Acute Encephalopathy, Toxic vs Metabolic Secondary to Cocaine Use / Resp Failure/ CHF Exacerbation Wean ETT as able CT Brain to r/o acute bleed Consider MRI if CT NAD Q4 Hour Neuro Obs Correct Lytes Maintain Normothermia Normoglycemia - use ISS as needed Na 135-145 [facility] Protocol - Banana Bag / Thiamine Ativan 1mg as needed for agitation Status: stable Juliane Chaidez N.P. Dec 20, 2018 23:44
--- NOTE | 2018-12-20 23:45 | History and Physical Report ---
DATE OF ADMISSION: 12/19/2018 CHIEF COMPLAINT: The patient is a 58-year-old female with history of chronic obstructive pulmonary disease, who presents with a chief complaint of shortness of breath. HISTORY OF PRESENT ILLNESS: The patient was apparently found outside of an apartment building on 12/19/2018. The patient was short of breath. EMS was called. The patient was transported to [place] emergency room. The patient was found to be in severe respiratory distress. The patient was placed on CPAP. The patient was then emergently intubated in the emergency room. The patient is now admitted to the intensive care unit. The patient is admitted for respiratory failure. REVIEW OF SYSTEMS: Unable to assess secondary to the patient's mental status. PAST MEDICAL HISTORY: Significant for, 1. Hypertension. 2. Chronic obstructive pulmonary disease. PAST SURGICAL HISTORY: Unknown. CURRENT MEDICATIONS: 1. Albuterol metered-dose inhaler two puffs p.o. q.i.d. p.r.n. 2. Amlodipine 10 mg p.o. daily. 3. Breo Ellipta 200/25 one puff daily. 4. Losartan 25 mg p.o. daily. 5. Spiriva 2 puffs p.o. daily. ALLERGY: No known drug allergies. SOCIAL HISTORY: The patient is a is single. The patient admits to tobacco use. The patient denies alcohol use. PHYSICAL EXAMINATION: VITAL SIGNS: Temperature 98.2, respirations 30, pulse 123, and blood pressure 186/130. GENERAL: The patient is a well-developed and well-nourished female, who is intubated and sedated. HEENT: Eyes, pupils are equal and responsive to light and accommodation. Extraocular movements are intact. NECK: Supple without lymphadenopathy. CHEST: Crackles in bilateral bases with expiratory wheezes. Otherwise, without rhonchi. ABDOMEN: Soft, nontender, and nondistended. Positive bowel sounds. No evidence of hepatosplenomegaly. Currently, no rebound or guarding noted. CARDIOVASCULAR: Tachycardic. Regular rate. S1 and S2 are normal without murmurs, rubs, or gallops. ABDOMEN: Soft, nontender, nondistended. Positive bowel sounds. No evidence of hepatosplenomegaly. Currently, no rebound or guarding noted. EXTREMITIES: Negative for clubbing, cyanosis, or edema. RECTAL/GENITAL: Refused. NEUROLOGIC: Cranial nerves II through XII are grossly intact without focal deficits. LABORATORY STUDIES: WBC 10.8, hemoglobin 13.8, hematocrit 44.8, and platelets 570,000. Sodium 140, potassium 4.3, chloride 104, CO2 23, BUN 9, creatinine 1.0, and glucose 246. AST elevated at 38, ALT elevated at 749, and alkaline phosphatase elevated at 233. BNP elevated at 2953. Troponin 0.22. An initial chest x-ray revealed diffuse interstitial air space infiltrates versus edema. ASSESSMENT: This is a 58-year-old female. 1. Respiratory failure. 2. Congestive heart failure. 3. Probable pneumonia. 4. Chronic obstructive pulmonary disease. 5. Hypertension. 6. Cocaine abuse. TREATMENT: 1. Respiratory failure. A Pulmonary consultation is pending with Dr. Arsalan Noe. The patient is intubated in the intensive care unit. We will follow recommendation of Pulmonary. The patient has been started empirically on intravenous Lasix for congestive heart failure. We will follow recommendation of Pulmonary. 2. Congestive heart failure. Cardiology consultation is obtained with Dr. Tyler Stewart. BNP is elevated. An echocardiogram is pending. We will follow recommendation of Cardiology. 3. Chronic obstructive pulmonary disease as above. A Pulmonary consultation has been obtained with Dr. Arsalan Noe. We will follow recommendations of Pulmonary. 4. Hypertension. The patient is currently on hydralazine. 5. Cocaine abuse. Salbador Bello M.D. DR: BRUCE JOB#: [id number] CC:
[2018-12-21] VITALS (24 sets, daily range): BP systolic 114–158; BP diastolic 68–97
--- NOTE | 2018-12-21 00:10 | NUR ---
NURSE NOTES: Pos. chg.suctioned.See V/S.Scope rhythm same.No distress.Cont.care plan.
--- NOTE | 2018-12-21 02:00 | NUR ---
NURSE NOTES: Repositioned,Suctioned.Jag.Vent.Settings.Status same.Cont.plan of care.
[2018-12-21] MEDS: LORazepam Inj 2mg/ml 1ml IV PRN ×2 (03:49→20:00)
--- NOTE | 2018-12-21 04:00 | NUR ---
Jag.vent. settings.Sat.100%.VSS.Scope rhythm same.No CP.See latest Tropo. Aware.Kept NPO as ordered.F/Cath.patent,diuresis well.See I/O.Breathe Sounds much improved.For CXR this am.Blood drawn for cbc/cmp etc.Spec.to Lab.Samra Melton.
[2018-12-21 05:24] LABS: BASOPHILS % (AUTO) 1.1 % (0.0-2.0); EOSINOPHILS % (AUTO) 0.6 % (0.0-3.0); HEMATOCRIT 38.7 % (37.0-47.0); HEMOGLOBIN 12.4 G/DL (12.0-16.0); LYMPHOCYTES % (AUTO) 14.4 % (20.0-45.0); MEAN CORPUSCULAR VOLUME 82 FL (80-99); MONOCYTES % (AUTO) 7.1 % (1.0-10.0); NEUTROPHILS % (AUTO) 76.7 % (45.0-75.0); PLATELET COUNT 444 K/UL (150-450); RED BLOOD COUNT 4.71 M/UL (4.20-5.40); RED CELL DISTRIBUTION WIDTH 15.8 % (11.6-14.8); WHITE BLOOD COUNT 9.6 K/UL (4.8-10.8)
[2018-12-21 06:21] LABS: ALANINE AMINOTRANSFERASE 43 U/L (12-78); ALBUMIN 2.3 G/DL (3.4-5.0); ALBUMIN/GLOBULIN RATIO 0.6 (1.0-2.7); ALKALINE PHOSPHATASE 148 U/L (46-116); ANION GAP 13 mmol/L (5-15); ASPARTATE AMINO TRANSFERASE 20 U/L (15-37); BILIRUBIN,TOTAL 1.1 MG/DL (0.2-1.0); BLOOD UREA NITROGEN 12 mg/dL (7-18); CALCIUM 8.4 MG/DL (8.5-10.1); CARBON DIOXIDE 22 MMOL/L (21-32); CHLORIDE 106 MMOL/L (98-107); CHOLESTEROL 159 MG/DL (< 200); HDL CHOLESTEROL 27 MG/DL (40-60); PHOSPHORUS 2.8 MG/DL (2.5-4.9); POTASSIUM 3.4 MMOL/L (3.5-5.1); SODIUM 141 MMOL/L (136-145); TRIGLYCERIDES 94 MG/DL (30-150)
[2018-12-21 06:24] LABS: BILIRUBIN,DIRECT 0.2 MG/DL (0.0-0.3)
--- NOTE | 2018-12-21 07:15 | NUR ---
RESPIRATORY NOTE:Received pt on vent with settings of A/C rate of 20, Vt 650, FI02 40%, PEEP +5. Pt is comfortably sleeping,with no respiratory distress noted, pt vitals wnl, and sat >92%. Vent plugged on red outlet. Alarms on and audible, Ambu bag @ BS. Will continue to monitor pt.
--- NOTE | 2018-12-21 07:27 | NUR ---
HAND-OFF: Report given to LINDA CERDA.
--- NOTE | 2018-12-21 07:44 | NUR ---
NURSE NOTES: Pt received from LINDA Cruz. Patient is sleeping comfortably on bed, all brakes engaged, 3 siderails up. Pt is easily awaken by voice, open eyes at times but does not follow commands by staffs. ET Tube 7.0, 24cm at lips in the medial area. Setting A/C 20 f 1/min, VT 650, FiO2 40%, PEEP 5. OJ Tube patent, pt is NPO at this time. No feeding ordered. Knight catheter patent, draining with gravity, output 175 at this time. Vital signs: Axillary temp 97.4F, BP 137/91, HR 77, RR 13, SAT 100%. Will cont to monitor.
[2018-12-21] MEDS: Heparin 5000 units/ml inj SUBQ SCH ×2 (08:23→21:03)
[2018-12-21] MEDS: Pantoprazole Inj IV SCH ×2 (08:23→21:02)
--- NOTE | 2018-12-21 08:47 | NUR ---
RADIOLOGY DEPT., CHEST X-RAY DONE.-P.DYE
--- NOTE | 2018-12-21 09:39 | NUR ---
NURSE NOTES: Dr. Noe at bedside assessing pt.
--- NOTE | 2018-12-21 09:54 | Pulmonolgy Critical Care Note ---
Critical Care - Asmt/Plan Problems: (1) Acute respiratory failure (2) Hypertensive emergency (3) COPD (chronic obstructive pulmonary disease) (4) Severe left ventricular systolic dysfunction (5) Pulmonary hypertension, moderate to severe (6) Pulmonary edema (7) Cocaine abuse Respiratory: monitor respiratory rate, adjust FIO2, CXR Cardiac: continue pressors, continue to monitor HR/BP Renal: F/U I&O, keep IV fluid Infectious Disease: check cultures, continue antibiotics Gastrointestinal: continue feedings/current rate Endocrine: monitor blood sugar, check TSH, continue sliding scale insulin Hematologic: monitor H/H, transfuse if hgb<8.5 Neurologic: PRN Ativan, keep patient comfortable Prophylaxis: Protonix Time Spent (Minutes): 40 Notes Reviewed: delivery associate, cardio Discussed with: nurses, consultants, case checkermanager export - Objective Last 24 Hour Vital Signs Date Time Temp Pulse Resp B/P (MAP) Pulse Ox O2 Delivery O2 Flow Rate FiO2 12/21/18 09:00 97.4 88 20 115/81 (92) 100 12/21/18 09:00 84 18 40 12/21/18 08:24 100 144/86 12/21/18 08:00 40 12/21/18 08:00 Nasal Cannula 2.0 12/21/18 08:00 69 12/21/18 08:00 97.4 71 20 144/86 (105) 100 12/21/18 07:17 70 20 40 12/21/18 07:00 81 20 137/81 (99) 100 12/21/18 06:10 146/88 12/21/18 06:00 68 20 146/88 (107) 100 12/21/18 05:12 64 20 40 12/21/18 05:00 64 20 137/84 (101) 100 12/21/18 04:00 71 12/21/18 04:00 40 12/21/18 04:00 Mechanical Ventilator 12/21/18 04:00 98.4 71 20 153/84 (107) 100 12/21/18 03:04 70 20 40 12/21/18 03:00 69 20 152/92 (112) 100 12/21/18 02:00 71 20 154/92 (112) 100 12/21/18 01:36 147/90 12/21/18 01:31 69 20 40 12/21/18 01:00 72 20 147/90 (109) 100 12/21/18 00:00 40 12/21/18 00:00 68 12/21/18 00:00 98.3 66 20 152/88 (109) 100 12/21/18 00:00 Mechanical Ventilator 12/20/18 23:00 66 20 143/92 (109) 100 12/20/18 22:40 67 20 40 12/20/18 22:00 66 20 149/84 (105) 100 12/20/18 21:21 70 20 40 12/20/18 21:00 68 20 142/82 (102) 100 12/20/18 20:00 98.7 70 20 137/79 (98) 100 12/20/18 20:00 70 12/20/18 20:00 40 12/20/18 20:00 Mechanical Ventilator 12/20/18 19:05 78 20 40 12/20/18 19:00 78 20 156/90 (112) 100 12/20/18 18:43 150/93 12/20/18 18:00 78 20 150/93 (112) 100 12/20/18 17:04 80 20 40 12/20/18 16:59 86 20 145/89 (107) 100 12/20/18 16:00 Mechanical Ventilator 12/20/18 16:00 78 12/20/18 16:00 98.5 76 20 143/80 (101) 100 12/20/18 16:00 40 12/20/18 15:03 77 20 40 12/20/18 15:00 79 20 152/90 (110) 100 12/20/18 14:00 78 20 149/78 (101) 100 12/20/18 13:20 166/123 12/20/18 13:08 86 20 40 12/20/18 13:00 96 20 166/123 (137) 100 12/20/18 12:00 Mechanical Ventilator 12/20/18 12:00 88 12/20/18 12:00 40 12/20/18 12:00 97.5 93 20 160/101 (120) 100 12/20/18 11:00 95 20 170/85 (113) 100 12/20/18 10:40 88 20 40 12/20/18 10:00 84 20 160/88 (112) 100 Status: awake Condition: critical HEENT: atraumatic, normocephalic Lungs: clear Heart: HR/BP stable Abdomen: soft, active bowel sounds Extremities: no C/C/E Decubiti: location Micro: Microbiology Date/Time Source Procedure Growth Status 12/19/18 09:40 Blood Blood Culture - Preliminary NO GROWTH AFTER 24 HOURS Resulted 12/19/18 09:30 Blood Blood Culture - Preliminary NO GROWTH AFTER 24 HOURS Resulted 12/19/18 10:45 Nasal Nares Left MRSA Culture - Final Staphylococcus Aureus - Mrsa Complete 12/19/18 10:45 Rectum VRE Culture - Final NO VANCOMYCIN RESISTANT ENTEROCOCCUS ... Resulted 12/19/18 10:45 Rectum Pending Resulted Critical Care - Subjective ROS Limited/Unobtainable: No Condition: critical EKG Rhythm: Sinus Rhythm FI02: 40 Vent Support Breath Rate: 20 Vent Support Mode: AC Vent Tidal Volume: 650 Sputum Amount: Small PEEP: 5.0 PIP: 39 I&O: Intake and Output 12/20/18 12/21/18 19:00 07:00 Intake Total 670.0 ml Output Total 2820 ml 1220 ml Balance -2150.0 ml -1220 ml Free Water 60 ml IV Total 590.0 ml Other 20 ml Output Urine Total 2820 ml 1220 ml CXR: ET in good position ET-Tube: 7.0 ET Position: 24 Labs: Laboratory Tests Test 12/20/18 10:00 12/20/18 18:18 12/21/18 03:40 12/21/18 06:30 Urine Color Pale yellow Urine Appearance Clear Urine pH 9 (4.5-8.0) Urine Specific [place] 1.015 (1.005-1.035) Urine Protein Negative (NEGATIVE) Urine Glucose (UA) Negative (NEGATIVE) Urine Ketones Negative (NEGATIVE) Urine Blood 2+ (NEGATIVE) H Urine Nitrite Negative (NEGATIVE) Urine Bilirubin Negative (NEGATIVE) Urine Urobilinogen Normal MG/DL (0.0-1.0) Urine Leukocyte Esterase Negative (NEGATIVE) Urine RBC 2-4 /HPF (0 - 2) H Urine WBC 0-2 /HPF (0 - 2) Urine Squamous Epithelial Cells Occasional /LPF Urine Bacteria Occasional /HPF (NONE) Urine Eosinophils None seen (NONE SEEN) Urine Random Creatinine Pending Urine Random Microalbumin Pending Urine Random Sodium 152 mmol/L (20-110) H Urine Creatinine 10.2 MG/DL (30.0-125.0) L Urine Microalbumin/Creatinine Ratio Pending Urine Potassium Timed 13 mmol/L (12-62) Lactic Acid Level 1.70 mmol/L (0.4-2.0) 1.70 mmol/L (0.4-2.0) White Blood Count 9.6 K/UL (4.8-10.8) Red Blood Count 4.71 M/UL (4.20-5.40) Hemoglobin 12.4 G/DL (12.0-16.0) Hematocrit 38.7 % (37.0-47.0) Mean Corpuscular Volume 82 FL (80-99) Mean Corpuscular Hemoglobin 26.3 PG (27.0-31.0) L Mean Corpuscular Hemoglobin Concent 32.0 G/DL (32.0-36.0) Red Cell Distribution Width 15.8 % (11.6-14.8) H Platelet Count 444 K/UL (150-450) Mean Platelet Volume 5.8 FL (6.5-10.1) L Neutrophils (%) (Auto) 76.7 % (45.0-75.0) H Lymphocytes (%) (Auto) 14.4 % (20.0-45.0) L Monocytes (%) (Auto) 7.1 % (1.0-10.0) Eosinophils (%) (Auto) 0.6 % (0.0-3.0) Basophils (%) (Auto) 1.1 % (0.0-2.0) Sodium Level 141 MMOL/L (136-145) Potassium Level 3.4 MMOL/L (3.5-5.1) L Chloride Level 106 MMOL/L (98-107) Carbon Dioxide Level 22 MMOL/L (21-32) Anion Gap 13 mmol/L (5-15) Blood Urea Nitrogen 12 mg/dL (7-18) Creatinine 1.0 MG/DL (0.55-1.30) Estimat Glomerular Filtration Rate > 60 mL/min (>60) Glucose Level 107 MG/DL (74-106) H Hemoglobin A1c 7.3 % (4.3-6.0) H Uric Acid 4.4 MG/DL (2.6-7.2) Calcium Level 8.4 MG/DL (8.5-10.1) L Phosphorus Level 2.8 MG/DL (2.5-4.9) Magnesium Level 1.7 MG/DL (1.8-2.4) L Total Bilirubin 1.1 MG/DL (0.2-1.0) H Direct Bilirubin 0.2 MG/DL (0.0-0.3) Gamma Glutamyl Transpeptidase 213 U/L (5-85) H Aspartate Amino Transf (AST/SGOT) 20 U/L (15-37) Alanine Aminotransferase (ALT/SGPT) 43 U/L (12-78) Alkaline Phosphatase 148 U/L (46-116) H C-Reactive Protein, Quantitative 1.0 mg/dL (0.00-0.90) H Pro-B-Type Natriuretic Peptide 2382 pg/mL (0-125) H Total Protein 6.0 G/DL (6.4-8.2) L Albumin 2.3 G/DL (3.4-5.0) L Globulin 3.7 g/dL Albumin/Globulin Ratio 0.6 (1.0-2.7) L Triglycerides Level 94 MG/DL (30-150) Cholesterol Level 159 MG/DL (< 200) LDL Cholesterol 118 mg/dL (<100) H HDL Cholesterol 27 MG/DL (40-60) L Cholesterol/HDL Ratio 5.9 (3.3-4.4) H Vitamin B12 Level 1131 PG/ML (193-986) H Folate 13.7 NG/ML (8.6-58.9) Thyroid Stimulating Hormone (TSH) 1.126 uiU/mL (0.358-3.740) Arterial Blood pH 7.581 (7.350-7.450) Arterial Blood Partial Pressure CO2 21.3 mmHg (35.0-45.0) *L Arterial Blood Partial Pressure O2 98.5 mmHg (75.0-100.0) Arterial Blood HCO3 19.6 mmol/L (22.0-26.0) L Arterial Blood Oxygen Saturation 98.5 % (95-100) Arterial Blood Base Excess -0.5 (-2-2) Theo Test Positive Arsalan Noe MD Dec 21, 2018 09:54
[2018-12-21] MEDS ORDERED: Haloperidol 5mg/ml Inj IVPB PRN (10:00)
--- NOTE | 2018-12-21 10:00 | NUR ---
RESPIRATORY NOTE: Began weaning per Dr. Sena order. along with nurse at bedside. Pt did not tolerate well due to being drowsy. Will reattempt weaning when pt is more awake & alert. Will continue to monitor.
[2018-12-21] MEDS ORDERED: Haloperidol Lactate 5 MG in D5W 55 ML IVPB PRN (10:15)
[2018-12-21] MEDS ORDERED: Haloperidol Lactate 5 MG in D5W 55 ML IM PRN (10:15)
[2018-12-21] MEDS ORDERED: Zemuron 50mg/5ml Inj IV ONE (10:38)
[2018-12-21] MEDS ORDERED: Etomidate 40mg/20ml Inj IV ONE (10:38)
--- NOTE | 2018-12-21 11:16 | Diagnostic Imaging Report ---
Indication: Dyspnea Technique: One view of the chest Comparison: 12/20/2018 Findings: Cystic space and minimal scarring again demonstrated in the right upper lobe. Lungs and pleural spaces are otherwise clear. The heart size is normal. Stable satisfactory positions of endotracheal and nasogastric tube. The heart size is normal Impression: Unchanged, over one day, findings as above.
[2018-12-21] MEDS ORDERED: Potassium Chloride 40 MEQ in Sodium Chloride 550 ML IVPB ONE (11:30)
--- NOTE | 2018-12-21 11:38 | Neurology Progress Note ---
Interim History Interim History ROS Limited/Unobtainable: Yes Complaints: AMS Events: No overnight events reported - will be on ETT weaning trials soon. Review of Systems Neuro Review of Systems Easily aroused, alert - eyes open spontaneously to voice. Pupils still unequal but briskly reactive bilaterally. Likely metabolic/ drug affect rather than hemorrhage. For imaging when able. Moving all four extremities and antigravity with symmetric strength. All Systems: reviewed and negative except above Objective Physical Exam Last Vital Signs Date Time Temp Pulse Resp B/P (MAP) Pulse Ox O2 Delivery O2 Flow Rate FiO2 12/21/18 11:00 88 20 133/82 (99) 100 12/21/18 10:00 97.4 12/21/18 09:00 40 12/21/18 08:00 Nasal Cannula 2.0 Laboratory Tests Test 12/20/18 18:18 12/21/18 03:40 12/21/18 06:30 Lactic Acid Level 1.70 mmol/L (0.4-2.0) 1.70 mmol/L (0.4-2.0) White Blood Count 9.6 K/UL (4.8-10.8) Red Blood Count 4.71 M/UL (4.20-5.40) Hemoglobin 12.4 G/DL (12.0-16.0) Hematocrit 38.7 % (37.0-47.0) Mean Corpuscular Volume 82 FL (80-99) Mean Corpuscular Hemoglobin 26.3 PG (27.0-31.0) L Mean Corpuscular Hemoglobin Concent 32.0 G/DL (32.0-36.0) Red Cell Distribution Width 15.8 % (11.6-14.8) H Platelet Count 444 K/UL (150-450) Mean Platelet Volume 5.8 FL (6.5-10.1) L Neutrophils (%) (Auto) 76.7 % (45.0-75.0) H Lymphocytes (%) (Auto) 14.4 % (20.0-45.0) L Monocytes (%) (Auto) 7.1 % (1.0-10.0) Eosinophils (%) (Auto) 0.6 % (0.0-3.0) Basophils (%) (Auto) 1.1 % (0.0-2.0) Sodium Level 141 MMOL/L (136-145) Potassium Level 3.4 MMOL/L (3.5-5.1) L Chloride Level 106 MMOL/L (98-107) Carbon Dioxide Level 22 MMOL/L (21-32) Anion Gap 13 mmol/L (5-15) Blood Urea Nitrogen 12 mg/dL (7-18) Creatinine 1.0 MG/DL (0.55-1.30) Estimat Glomerular Filtration Rate > 60 mL/min (>60) Glucose Level 107 MG/DL (74-106) H Hemoglobin A1c 7.3 % (4.3-6.0) H Uric Acid 4.4 MG/DL (2.6-7.2) Calcium Level 8.4 MG/DL (8.5-10.1) L Phosphorus Level 2.8 MG/DL (2.5-4.9) Magnesium Level 1.7 MG/DL (1.8-2.4) L Total Bilirubin 1.1 MG/DL (0.2-1.0) H Direct Bilirubin 0.2 MG/DL (0.0-0.3) Gamma Glutamyl Transpeptidase 213 U/L (5-85) H Aspartate Amino Transf (AST/SGOT) 20 U/L (15-37) Alanine Aminotransferase (ALT/SGPT) 43 U/L (12-78) Alkaline Phosphatase 148 U/L (46-116) H C-Reactive Protein, Quantitative 1.0 mg/dL (0.00-0.90) H Pro-B-Type Natriuretic Peptide 2382 pg/mL (0-125) H Total Protein 6.0 G/DL (6.4-8.2) L Albumin 2.3 G/DL (3.4-5.0) L Globulin 3.7 g/dL Albumin/Globulin Ratio 0.6 (1.0-2.7) L Triglycerides Level 94 MG/DL (30-150) Cholesterol Level 159 MG/DL (< 200) LDL Cholesterol 118 mg/dL (<100) H HDL Cholesterol 27 MG/DL (40-60) L Cholesterol/HDL Ratio 5.9 (3.3-4.4) H Vitamin B12 Level 1131 PG/ML (193-986) H Folate 13.7 NG/ML (8.6-58.9) Thyroid Stimulating Hormone (TSH) 1.126 uiU/mL (0.358-3.740) Arterial Blood pH 7.581 (7.350-7.450) Arterial Blood Partial Pressure CO2 21.3 mmHg (35.0-45.0) *L Arterial Blood Partial Pressure O2 98.5 mmHg (75.0-100.0) Arterial Blood HCO3 19.6 mmol/L (22.0-26.0) L Arterial Blood Oxygen Saturation 98.5 % (95-100) Arterial Blood Base Excess -0.5 (-2-2) Theo Test Positive General: well developed, well nourished Head: normocophalic Neck: no rigidity EENT: benign Neurologic Exam Mental Status: awake, alert Speech: other - INtubated Language: no aphasia Cranial Nerve II: fundus normal, visual georges, no papilledema Cranial Nerves III, IV, : EOMI, pupils - Left pupil > Right Pupil - both reactive Cranial Nerve V: normal facial sensations, temporales function normal Cranial Nerve VII: no facial asymmetry Cranial Nerve VIII: normal hearing Cranial Nerve XI: SCM symmetric Cranial Nerve XII: tongue midline, no tongue atrophy/fasciculations Motor System: normal muscle tone, no involuntary movement, no muscle wasting Sensory: normal pinprick, normal light touch Deep Tendon Reflexes: 1+ bicep (L), 1+ tricep (L), 1+ brachioradialis (L), 1+ knee (L), 1+ ankle (L); 2+ bicep (R), 2+ tricep (R), 2+ brachioradialis (R), 2+ knee (R), 2+ ankle (R) Reflexes: flexor plantar (L), flexor plantar (R); extensor plantar (L), extensor plantar (R) Gait: other - Still in four point restraints and intubated. Objective Just as alert today- able to follow both midline and non midline commands. Impression/Recommendations Problems: (1) Unequal pupils Assessment & Plan: Monitor, likely drug/ metabolic toxicity vs Central cause ( CVA/Hemorrhage) CT Brain to rule out bleeding CANDY, exam makes this unlikely. (2) Acute respiratory failure Assessment & Plan: Wean vent as able (3) Cocaine abuse Assessment & Plan: [facility] Protocol - Consider Assessment prior to extubation (4) Hypertensive emergency Assessment & Plan: Maintain BP< 140-160 (5) Altered mental state Assessment & Plan: Acute Encephalopathy, Toxic vs Metabolic Secondary to Cocaine Use / Resp Failure/ CHF Exacerbation Wean ETT as able CT Brain to r/o acute bleed Consider MRI if CT NAD Q2 Hour Neuro Obs Correct Lytes Maintain Normothermia Normoglycemia - use ISS as needed Na 135-145 CIWA Protocol - Banana Bag / Thiamine Ativan 1mg as needed for agitation Status: stable Diagnostic Impression Continue Q2 hour neuro obs CT Brain w/ o contrast CANDY Wean Vent CANDY Juliane Chaidez N.P. Dec 21, 2018 11:38
--- NOTE | 2018-12-21 13:07 | NUR ---
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 IS:POTASSIUM CHLORIDE 570ml IVPB MAGNESIUM SULFATE 100ml IVPB PROTONIX 40mg IV CLONIDINE HCI 0.1mg NG NORVASC 10mG HEPARIN SUBQ LORAZEPAM 2mg IV ICU STATUS
--- NOTE | 2018-12-21 13:24 | NUR ---
NURSE NOTES: Per RT, pt is not awake and alert enough to be extubated at this time. Weaning setting applied. Will try again with RT.
--- NOTE | 2018-12-21 14:45 | NUR ---
*-* INSURANCE *-* ALL CLINICALS AND REVIEWS HAVE BEEN FAXED TO: [employer]: [place] P- [phone] F- [phone]...........REVIEW/CLINICAL
--- NOTE | 2018-12-21 15:30 | NUR ---
RESPIRATORY NOTE: Began weaning trail on pt at 1520. Pt awake and alert. Vitals and sat are wnl/>92%. Coaching pt at bedside with rn. Pt doing well Will continue to monitor.
--- NOTE | 2018-12-21 16:09 | Nephrology Progress Note ---
Assessment/Plan Problem List: (1) Acute respiratory failure (2) Pulmonary hypertension, moderate to severe (3) Severe left ventricular systolic dysfunction (4) Cocaine abuse (5) Hypertensive emergency (6) Altered mental state Assessment Acute renal failure- multi factorial due to one or more of following: (1) Acute respiratory failure on vent (2) Hypertensive emergency (3) COPD (chronic obstructive pulmonary disease) (4) Severe left ventricular systolic dysfunction, Low ej fx (5) Pulmonary hypertension, moderate to severe (6) Pulmonary edema (7) Cocaine abuse Plan Adjust BP meds Avoid Nephrotoxics Pulmonary support Aim to reduce afterload vasotec and digoxin per orders Subjective ROS Limited/Unobtainable: Yes Objective Objective Last 24 Hour Vital Signs Date Time Temp Pulse Resp B/P (MAP) Pulse Ox O2 Delivery O2 Flow Rate FiO2 12/21/18 15:00 101 25 156/97 (116) 100 12/21/18 14:40 86 22 40 12/21/18 14:00 97.4 86 20 119/83 (95) 100 12/21/18 13:00 97.5 87 20 119/78 (92) 100 12/21/18 12:59 80 20 40 12/21/18 12:00 82 12/21/18 12:00 83 20 120/80 (93) 100 12/21/18 11:59 40 12/21/18 11:54 Nasal Cannula 2.0 12/21/18 11:41 133/82 12/21/18 11:15 87 20 40 12/21/18 11:00 88 20 133/82 (99) 100 12/21/18 10:00 97.4 79 20 117/73 (88) 100 12/21/18 09:00 97.4 88 20 115/81 (92) 100 12/21/18 09:00 84 18 40 12/21/18 08:24 100 144/86 12/21/18 08:00 40 12/21/18 08:00 Nasal Cannula 2.0 12/21/18 08:00 69 12/21/18 08:00 97.4 71 20 144/86 (105) 100 12/21/18 07:17 70 20 40 12/21/18 07:00 81 20 137/81 (99) 100 12/21/18 06:10 146/88 12/21/18 06:00 68 20 146/88 (107) 100 12/21/18 05:12 64 20 40 12/21/18 05:00 64 20 137/84 (101) 100 12/21/18 04:00 71 12/21/18 04:00 40 12/21/18 04:00 Mechanical Ventilator 12/21/18 04:00 98.4 71 20 153/84 (107) 100 12/21/18 03:04 70 20 40 12/21/18 03:00 69 20 152/92 (112) 100 12/21/18 02:00 71 20 154/92 (112) 100 12/21/18 01:36 147/90 12/21/18 01:31 69 20 40 12/21/18 01:00 72 20 147/90 (109) 100 12/21/18 00:00 40 12/21/18 00:00 68 12/21/18 00:00 98.3 66 20 152/88 (109) 100 12/21/18 00:00 Mechanical Ventilator 12/20/18 23:00 66 20 143/92 (109) 100 12/20/18 22:40 67 20 40 12/20/18 22:00 66 20 149/84 (105) 100 12/20/18 21:21 70 20 40 12/20/18 21:00 68 20 142/82 (102) 100 12/20/18 20:00 98.7 70 20 137/79 (98) 100 12/20/18 20:00 70 12/20/18 20:00 40 12/20/18 20:00 Mechanical Ventilator 12/20/18 19:05 78 20 40 12/20/18 19:00 78 20 156/90 (112) 100 12/20/18 18:43 150/93 12/20/18 18:00 78 20 150/93 (112) 100 12/20/18 17:04 80 20 40 12/20/18 16:59 86 20 145/89 (107) 100 Intake and Output 12/20/18 12/21/18 19:00 07:00 Intake Total 670.0 ml Output Total 2820 ml 1220 ml Balance -2150.0 ml -1220 ml Free Water 60 ml IV Total 590.0 ml Other 20 ml Output Urine Total 2820 ml 1220 ml Laboratory Tests 12/20/18 18:18: Lactic Acid Level 1.70 12/21/18 03:40: Lactic Acid Level 1.70, White Blood Count 9.6, Red Blood Count 4.71, Hemoglobin 12.4, Hematocrit 38.7, Mean Corpuscular Volume 82, Mean Corpuscular Hemoglobin 26.3L, Mean Corpuscular Hemoglobin Concent 32.0, Red Cell Distribution Width 15.8H, Platelet Count 444, Mean Platelet Volume 5.8L, Neutrophils (%) (Auto) 76.7H, Lymphocytes (%) (Auto) 14.4L, Monocytes (%) (Auto) 7.1, Eosinophils (%) ( Auto) 0.6, Basophils (%) (Auto) 1.1, Sodium Level 141, Potassium Level 3.4L, Chloride Level 106, Carbon Dioxide Level 22, Anion Gap 13, Blood Urea Nitrogen 12, Creatinine 1.0, Estimat Glomerular Filtration Rate > 60, Glucose Level 107H , Hemoglobin A1c 7.3H, Uric Acid 4.4, Calcium Level 8.4L, Phosphorus Level 2.8, Magnesium Level 1.7L, Total Bilirubin 1.1H, Direct Bilirubin 0.2, Gamma Glutamyl Transpeptidase 213H, Aspartate Amino Transf (AST/SGOT) 20, Alanine Aminotransferase (ALT/SGPT) 43, Alkaline Phosphatase 148H, C-Reactive Protein, Quantitative 1.0H, Pro-B-Type Natriuretic Peptide 2382H, Total Protein 6.0L, Albumin 2.3L, Globulin 3.7, Albumin/Globulin Ratio 0.6L, Triglycerides Level 94 , Cholesterol Level 159, LDL Cholesterol 118H, HDL Cholesterol 27L, Cholesterol/ HDL Ratio 5.9H, Vitamin B12 Level 1131H, Folate 13.7, Thyroid Stimulating Hormone (TSH) 1.126 12/21/18 06:30: Arterial Blood pH 7.581*H, Arterial Blood Partial Pressure CO2 21.3*L, Arterial Blood Partial Pressure O2 98.5, Arterial Blood HCO3 19.6L, Arterial Blood Oxygen Saturation 98.5, Arterial Blood Base Excess -0.5, Theo Test Positive 12/21/18 13:20: Troponin I 0.053 Height (Feet): 5 Height (Inches): 6.00 Weight (Pounds): 116 General Appearance: no apparent distress EENT: other - vented Cardiovascular: other - variable rate Respiratory/Chest: decreased breath sounds Abdomen: soft, distended Simeon Wright MD Dec 21, 2018 16:09
--- NOTE | 2018-12-21 16:15 | NUR ---
NURSE NOTES: Weaning to A/C failed, reported by RT. Pt is put back to A/C mode Ventilator with the same previous setting. Addendum: 12/21/18 at 1813 by BEAU ALCANTAR RN Weaning from A/C to CPAP failed.
--- NOTE | 2018-12-21 16:26 | NUR ---
RESPIRATORY NOTE: Terminated weaning due to pt tiring, pt did very well with weaning approx 1hour, however vital capacity & NIP/NIF did not meet adequacy to protocol. Pt placed back on full support (AC/Vol cont). No extubation at this time per charge nurse. Vitals and sat wnl/>92%. Will continue to monitor.
[2018-12-21] MEDS ORDERED: Digoxin 0.5mg/2ml Inj IVP SCH (17:00)
[2018-12-21] MEDS ORDERED: Lisinopril 2.5mg tab NG SCH (17:00)
[2018-12-21] MEDS: dilTIAZem HCl 30mg tab NG SCH ×2 (17:15→23:40)
--- NOTE | 2018-12-21 18:13 | NUR ---
NURSE NOTES: Pt is tolerating well with vent setting of A/C 20, FiO2 30%, TV 650, PEEP 5. Vital signs stable. No sign of acute distress. Bath given, linen changed. Will cont to monitor.
--- NOTE | 2018-12-21 18:51 | Internal Med Progress Note ---
Subjective Date of Service: Dec 21, 2018 Physician Name Salbador Bello Attending Physician Rambo Ardon MD Current Medications Medications (Trade) Dose Ordered Sig/Alisia Route PRN Reason Start Time Stop Time Status Last Admin Dose Admin Acetaminophen (Tylenol) 650 mg Q4H PRN ORAL Fever 12/19/18 13:30 01/18/19 13:29 Albuterol/ Ipratropium (Albuterol/ Ipratropium) 3 ml Q4H PRN HHN Shortness of Breath 12/19/18 13:30 12/24/18 13:29 Clonidine HCl (Catapres Tab) 0.1 mg Q4H PRN NG bp over 180 syst 12/21/18 16:19 01/20/19 16:18 Dextrose (Dextrose 50%) STAT PRN IV Hypoglycemia 12/19/18 13:30 01/18/19 13:29 Diltiazem HCl (Cardizem) 30 mg EVERY 6 HOURS NG 12/21/18 18:00 01/20/19 17:59 12/21/18 17:15 Haloperidol Lactate 5 mg/ Dextrose 56 ml @ 112 mls/hr Q1H PRN IVPB AGITATION 12/21/18 10:15 01/20/19 10:14 Heparin Sodium (Porcine) (Heparin 5000 units/ml) 5,000 units EVERY 12 HOURS SUBQ 12/19/18 21:00 01/18/19 20:59 12/21/18 08:23 Hydralazine HCl (Apresoline) 10 mg Q4H PRN IV bp over 160 syst 12/21/18 16:19 01/19/19 16:18 Lidocaine HCl (Xylocaine 1% 30ml) 30 ml ONCE PRN INJ PICC LINE 12/19/18 19:15 12/21/18 19:14 Lisinopril (Zestril) 2.5 mg DAILY NG 12/22/18 09:00 01/21/19 08:59 Lorazepam (Ativan 2mg/ml 1ml) 2 mg Q4H PRN IV For Anxiety 12/19/18 13:30 12/26/18 13:29 12/21/18 03:49 Morphine Sulfate (Morphine Sulfate) 4 mg Q4H PRN IVP For Pain 12/19/18 13:30 12/26/18 13:29 Nitroglycerin (Ntg) 0.4 mg Q5M PRN SL Prn Chest Pain 12/19/18 11:00 01/18/19 10:59 12/19/18 11:14 Ondansetron HCl (Zofran) 4 mg Q6H PRN IVP Nausea & Vomiting 12/19/18 13:30 01/18/19 13:29 Pantoprazole (Protonix) 40 mg Q12HR IV 12/20/18 21:00 01/19/19 08:59 12/21/18 08:23 Polyethylene Glycol (Miralax) 17 gm DAILYPRN PRN ORAL Constipation 12/19/18 13:30 01/18/19 13:29 Temazepam (Restoril) 15 mg HSPRN PRN ORAL Insomnia 12/19/18 13:30 12/26/18 13:29 Allergies: Coded Allergies: No Known Allergies (Unverified , 05/17/18) ROS Limited/Unobtainable: Yes Subjective 58 YO F admitted with respiratory failure. Intubated and sedated. Cover for Int Med-DR Ardon. ICU Objective Last Vital Signs Date Time Temp Pulse Resp B/P (MAP) Pulse Ox O2 Delivery O2 Flow Rate FiO2 12/21/18 18:00 97.3 64 20 129/68 (88) 100 12/21/18 17:15 40 12/21/18 16:00 Mechanical Ventilator 12/21/18 11:54 2.0 Laboratory Tests Test 12/21/18 03:40 12/21/18 06:30 12/21/18 13:20 White Blood Count 9.6 K/UL (4.8-10.8) Red Blood Count 4.71 M/UL (4.20-5.40) Hemoglobin 12.4 G/DL (12.0-16.0) Hematocrit 38.7 % (37.0-47.0) Mean Corpuscular Volume 82 FL (80-99) Mean Corpuscular Hemoglobin 26.3 PG (27.0-31.0) L Mean Corpuscular Hemoglobin Concent 32.0 G/DL (32.0-36.0) Red Cell Distribution Width 15.8 % (11.6-14.8) H Platelet Count 444 K/UL (150-450) Mean Platelet Volume 5.8 FL (6.5-10.1) L Neutrophils (%) (Auto) 76.7 % (45.0-75.0) H Lymphocytes (%) (Auto) 14.4 % (20.0-45.0) L Monocytes (%) (Auto) 7.1 % (1.0-10.0) Eosinophils (%) (Auto) 0.6 % (0.0-3.0) Basophils (%) (Auto) 1.1 % (0.0-2.0) Sodium Level 141 MMOL/L (136-145) Potassium Level 3.4 MMOL/L (3.5-5.1) L Chloride Level 106 MMOL/L (98-107) Carbon Dioxide Level 22 MMOL/L (21-32) Anion Gap 13 mmol/L (5-15) Blood Urea Nitrogen 12 mg/dL (7-18) Creatinine 1.0 MG/DL (0.55-1.30) Estimat Glomerular Filtration Rate > 60 mL/min (>60) Glucose Level 107 MG/DL (74-106) H Hemoglobin A1c 7.3 % (4.3-6.0) H Lactic Acid Level 1.70 mmol/L (0.4-2.0) Uric Acid 4.4 MG/DL (2.6-7.2) Calcium Level 8.4 MG/DL (8.5-10.1) L Phosphorus Level 2.8 MG/DL (2.5-4.9) Magnesium Level 1.7 MG/DL (1.8-2.4) L Total Bilirubin 1.1 MG/DL (0.2-1.0) H Direct Bilirubin 0.2 MG/DL (0.0-0.3) Gamma Glutamyl Transpeptidase 213 U/L (5-85) H Aspartate Amino Transf (AST/SGOT) 20 U/L (15-37) Alanine Aminotransferase (ALT/SGPT) 43 U/L (12-78) Alkaline Phosphatase 148 U/L (46-116) H C-Reactive Protein, Quantitative 1.0 mg/dL (0.00-0.90) H Pro-B-Type Natriuretic Peptide 2382 pg/mL (0-125) H Total Protein 6.0 G/DL (6.4-8.2) L Albumin 2.3 G/DL (3.4-5.0) L Globulin 3.7 g/dL Albumin/Globulin Ratio 0.6 (1.0-2.7) L Triglycerides Level 94 MG/DL (30-150) Cholesterol Level 159 MG/DL (< 200) LDL Cholesterol 118 mg/dL (<100) H HDL Cholesterol 27 MG/DL (40-60) L Cholesterol/HDL Ratio 5.9 (3.3-4.4) H Vitamin B12 Level 1131 PG/ML (193-986) H Folate 13.7 NG/ML (8.6-58.9) Thyroid Stimulating Hormone (TSH) 1.126 uiU/mL (0.358-3.740) Arterial Blood pH 7.581 (7.350-7.450) Arterial Blood Partial Pressure CO2 21.3 mmHg (35.0-45.0) *L Arterial Blood Partial Pressure O2 98.5 mmHg (75.0-100.0) Arterial Blood HCO3 19.6 mmol/L (22.0-26.0) L Arterial Blood Oxygen Saturation 98.5 % (95-100) Arterial Blood Base Excess -0.5 (-2-2) Theo Test Positive Troponin I 0.053 ng/mL (0.000-0.056) Microbiology Date/Time Source Procedure Growth Status 12/19/18 09:40 Blood Blood Culture - Preliminary NO GROWTH AFTER 24 HOURS Resulted 12/19/18 09:30 Blood Blood Culture - Preliminary NO GROWTH AFTER 24 HOURS Resulted 12/19/18 10:45 Nasal Nares Left MRSA Culture - Final Staphylococcus Aureus - Mrsa Complete 12/19/18 10:45 Rectum VRE Culture - Final NO VANCOMYCIN RESISTANT ENTEROCOCCUS ... Resulted 12/19/18 10:45 Rectum Pending Resulted Intake and Output 12/20/18 12/21/18 19:00 07:00 Intake Total 670.0 ml Output Total 2820 ml 1220 ml Balance -2150.0 ml -1220 ml Free Water 60 ml IV Total 590.0 ml Other 20 ml Output Urine Total 2820 ml 1220 ml Objective PHYSICAL EXAMINATION: VITAL SIGNS: Temperature 98.2, respirations 30, pulse 123, and blood pressure 186/130. GENERAL: The patient is a well-developed and well-nourished female, who is intubated and sedated. HEENT: Eyes, pupils are equal and responsive to light and accommodation. Extraocular movements are intact. NECK: Supple without lymphadenopathy. CHEST: Mech vent; Crackles in bilateral bases with expiratory wheezes. Otherwise, without rhonchi. ABDOMEN: Soft, nontender, and nondistended. Positive bowel sounds. No evidence of hepatosplenomegaly. Currently, no rebound or guarding noted. CARDIOVASCULAR: Tachycardic. Regular rate. S1 and S2 are normal without murmurs, rubs, or gallops. ABDOMEN: Soft, nontender, nondistended. Positive bowel sounds. No evidence of hepatosplenomegaly. Currently, no rebound or guarding noted. EXTREMITIES: Negative for clubbing, cyanosis, or edema. RECTAL/GENITAL: Refused. NEUROLOGIC: Cranial nerves II through XII are grossly intact without focal deficits. Assessment/Plan Assessment/Plan ASSESSMENT: This is a 58-year-old female. 1. Respiratory failure. 2. Congestive heart failure. 3. Probable pneumonia. 4. Chronic obstructive pulmonary disease. 5. Hypertension. 6. Cocaine abuse. TREATMENT: 1. Respiratory failure. . The patient is intubated in the intensive care unit. We will follow recommendation of Pulmonary. The patient has been started empirically on intravenous Lasix for congestive heart failure. We will follow recommendation of Pulmonary- Dr. Arsalan Noe 2. Congestive heart failure. Cardiology consultation is obtained with Dr. Tyler Stewart. BNP is elevated. An echocardiogram is pending. We will follow recommendation of Cardiology. 3. Chronic obstructive pulmonary disease as above. A Pulmonary consultation has been obtained with Dr. Arsalan Noe. We will follow recommendations of Pulmonary. 4. Hypertension. The patient is currently on hydralazine. 5. Cocaine abuse. Salbador Bello MD Dec 21, 2018 18:51
--- NOTE | 2018-12-21 19:11 | NUR ---
HAND-OFF: Report given to Barbara Cruz.
--- NOTE | 2018-12-21 19:15 | NUR ---
RESPIRATORY NOTE: Received pt on AC 20, 650VT, 30%, PEEP +5. Pt intubated w/ ETT 7.0 @ 24cm lipline, secured by anchorfast. Pr currently asleep, arousable. B/S autumn rhonchi/diminished, sxn small to moderate amounts of thick/thin, pale-white to urbina-yellow secretions w/ occasional blood clots. Both hands on soft restraints to prevent pt from self-extubation. Vent plugged into red outlet, ambubag at bedside. Pt in no apparent distress at this time. Will continue to monitor pt.
--- NOTE | 2018-12-21 19:20 | NUR ---
NURSE NOTES: Recvd.on a vent.orally intubated,awake restless/confused and agitated.Bila.soft wrist restraints on prev.self-injury.Pos.chg.Made comfortable.Re-oriented,re-assured.Suctioned thin beige sec.NS Lavaged.OGT intact clamped.NPO.F/Cath patent diuresis well.See I/O.
--- NOTE | 2018-12-21 21:21 | NUR ---
NURSE NOTES: HS care rendered.Pos.chg.Backrub with Lotion.Suctioned.Due Meds admin.Medicated for agitation.
[2018-12-22] VITALS (24 sets, daily range): BP systolic 36–165; BP diastolic 62–95
--- NOTE | 2018-12-22 00:10 | NUR ---
NURSE NOTES: Suctioned,Pos.chg.See V/S.Scope SR.Status same.Cont.Plan of care.
[2018-12-22] MEDS: LORazepam Inj 2mg/ml 1ml IV PRN ×2 (01:57→08:37)
--- NOTE | 2018-12-22 02:08 | NUR ---
NURSE NOTES: Awake restless and agitated.Medicated.Repositioned to comfort.Cont.to Reassured and Re-oriented.
--- NOTE | 2018-12-22 04:30 | NUR ---
NURSE NOTES: Samra Melton chg.Pos.to comfort.Suctioned.Tolerated vent.settings.Sat.-100%.am weaning trial.Maintain on bila.soft wrist restraints prev.self-injury.Blood drawn for cbc/cmp/mg and phos.spec.to lab.
[2018-12-22 05:31] LABS: BASOPHILS % (AUTO) 1.1 % (0.0-2.0); EOSINOPHILS % (AUTO) 1.2 % (0.0-3.0); HEMATOCRIT 40.7 % (37.0-47.0); LYMPHOCYTES % (AUTO) 15.8 % (20.0-45.0); MEAN CORPUSCULAR VOLUME 82 FL (80-99); MONOCYTES % (AUTO) 9.7 % (1.0-10.0); NEUTROPHILS % (AUTO) 72.2 % (45.0-75.0); PLATELET COUNT 482 K/UL (150-450); RED BLOOD COUNT 4.96 M/UL (4.20-5.40); RED CELL DISTRIBUTION WIDTH 15.9 % (11.6-14.8); WHITE BLOOD COUNT 8.4 K/UL (4.8-10.8)
[2018-12-22] MEDS: dilTIAZem HCl 30mg tab NG SCH ×3 (05:32→21:48)
[2018-12-22 06:08] LABS: ALANINE AMINOTRANSFERASE 40 U/L (12-78); ALBUMIN 2.5 G/DL (3.4-5.0); ALBUMIN/GLOBULIN RATIO 0.6 (1.0-2.7); ALKALINE PHOSPHATASE 150 U/L (46-116); ANION GAP 15 mmol/L (5-15); ASPARTATE AMINO TRANSFERASE 17 U/L (15-37); BILIRUBIN,TOTAL 1.1 MG/DL (0.2-1.0); BLOOD UREA NITROGEN 13 mg/dL (7-18); CALCIUM 8.5 MG/DL (8.5-10.1); CARBON DIOXIDE 19 MMOL/L (21-32); CHLORIDE 105 MMOL/L (98-107); CREATININE 0.9 MG/DL (0.55-1.30); PHOSPHORUS 2.9 MG/DL (2.5-4.9); POTASSIUM 3.2 MMOL/L (3.5-5.1); SODIUM 139 MMOL/L (136-145)
[2018-12-22 06:20] LABS: BILIRUBIN,DIRECT 0.2 MG/DL (0.0-0.3)
--- NOTE | 2018-12-22 06:57 | NUR ---
RESPIRATORY NOTE: Received pt on AC 20, 650ml, 30, PEEP +5. Pt intubated w/ ETT 7.0 @ 24cm lips line, secured by anchor fast. Pt is arousals via touching, soft wrist restrains on both hand to prevent self extubation. B/S autumn. rhonchi/diminished, sxn small amounts of thick/thin clear-white secretions without incidents. Vent plugged into red outlet, ambu bag at bedside, alarms are set and audible. Pt is in no apparent distress. Will continue to monitor pt.
--- NOTE | 2018-12-22 07:29 | NUR ---
HAND-OFF: Report given to LINDA WATSON.
[2018-12-22] MEDS: Heparin 5000 units/ml inj SUBQ SCH ×2 (08:39→20:50)
[2018-12-22] MEDS: Pantoprazole Inj IV SCH ×2 (08:40→20:49)
--- NOTE | 2018-12-22 08:44 | NUR ---
RADIOLOGY DEPT., CHEST X-RAY DONE.-P.DYE
[2018-12-22] MEDS ORDERED: Lisinopril 2.5mg tab NG SCH (09:00)
--- NOTE | 2018-12-22 09:19 | Diagnostic Imaging Report ---
Indication: Dyspnea Technique: One view of the chest Comparison: December 21, 2018 Findings: Stable satisfactory position of endotracheal and nasogastric tube. The heart size is normal. Lungs and pleural spaces remain clear Impression: Unchanged, over one day, findings as above.
--- NOTE | 2018-12-22 09:29 | NUR ---
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 The heart size is normal. Lungs and pleural spaces remain clear. IS:LISINOPRIL 2.5mg NG CARDIZEM 30mg NG DIGOXIN 0.25mg IVP ZESTRIL 2.5mg NG PROTONIX 40mg IV HEPARIN SUBQ LORAZEPAM 2mg IV MORPHINE 4mg IVP ICU STAUTS
[2018-12-22] MEDS ORDERED: Sodium Chloride for KCL Premix X 4hrs IV SCH (10:00)
--- NOTE | 2018-12-22 10:00 | NUR ---
NURSE NOTES: Turned, repositioned pt, oral care provided. will continue plan of care.
--- NOTE | 2018-12-22 10:15 | NUR ---
Social Service Note Patient is orally intubated, unable to make needs know. Will follow up and reassess.
--- NOTE | 2018-12-22 10:31 | Pulmonolgy Critical Care Note ---
Critical Care - Asmt/Plan Problems: (1) Acute respiratory failure (2) Hypertensive emergency (3) COPD (chronic obstructive pulmonary disease) (4) Severe left ventricular systolic dysfunction (5) Pulmonary hypertension, moderate to severe (6) Pulmonary edema (7) Cocaine abuse Respiratory: monitor respiratory rate, adjust FIO2, CXR Cardiac: continue pressors, continue to monitor HR/BP Renal: F/U I&O, check electrolytes Infectious Disease: check cultures, continue antibiotics Gastrointestinal: continue feedings/current rate Endocrine: monitor blood sugar Hematologic: monitor H/H, transfuse if hgb<8.5 Neurologic: PRN Ativan, PRN Morphine, keep patient comfortable Disposition: keep in ICU Time Spent (Minutes): 40 Notes 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, 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 Discussed with: nurses, consultants, 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 - Objective Last 24 Hour Vital Signs Date Time Temp Pulse Resp B/P (MAP) Pulse Ox O2 Delivery O2 Flow Rate FiO2 12/22/18 10:08 87 25 12/22/18 09:07 97.6 12/22/18 09:00 89 20 30 12/22/18 08:40 165/95 12/22/18 06:57 82 19 30 12/22/18 06:00 76 20 165/95 (118) 100 12/22/18 05:32 74 158/88 12/22/18 05:15 74 20 30 12/22/18 05:00 87 20 136/74 (94) 100 12/22/18 04:00 30 12/22/18 04:00 60 12/22/18 04:00 97.6 60 20 120/91 (101) 100 12/22/18 04:00 Mechanical Ventilator 12/22/18 03:03 68 20 30 12/22/18 03:00 69 20 163/88 (113) 100 12/22/18 02:00 81 20 150/73 (98) 100 12/22/18 01:05 62 20 30 12/22/18 01:00 59 20 160/81 (107) 100 12/22/18 00:00 98.2 61 20 145/78 (100) 100 12/22/18 00:00 30 12/22/18 00:00 61 12/22/18 00:00 Mechanical Ventilator 12/21/18 23:40 67 158/83 12/21/18 23:26 63 20 30 12/21/18 23:00 67 20 158/83 (108) 100 12/21/18 22:00 67 20 157/79 (105) 100 12/21/18 21:20 66 20 30 12/21/18 21:00 65 20 137/75 (95) 100 12/21/18 20:00 85 12/21/18 20:00 Mechanical Ventilator 12/21/18 20:00 30 12/21/18 20:00 97.6 85 20 144/72 (96) 100 12/21/18 19:13 61 20 30 12/21/18 18:56 97.3 62 21 134/74 (94) 100 12/21/18 18:00 97.3 64 20 129/68 (88) 100 12/21/18 17:16 83 12/21/18 17:15 114/70 12/21/18 17:15 83 114/70 12/21/18 17:15 90 20 40 12/21/18 17:00 97.3 80 21 114/70 (85) 100 12/21/18 16:00 133 12/21/18 16:00 30 12/21/18 16:00 114 21 150/74 (99) 100 12/21/18 16:00 Mechanical Ventilator 12/21/18 15:00 30 12/21/18 15:00 101 25 156/97 (116) 100 12/21/18 14:40 86 22 40 12/21/18 14:00 97.4 86 20 119/83 (95) 100 12/21/18 13:00 97.5 87 20 119/78 (92) 100 12/21/18 12:59 80 20 40 12/21/18 12:00 82 12/21/18 12:00 83 20 120/80 (93) 100 12/21/18 11:59 30 12/21/18 11:54 Nasal Cannula 2.0 12/21/18 11:41 133/82 12/21/18 11:15 87 20 40 12/21/18 11:00 88 20 133/82 (99) 100 Status: awake, somnolent Condition: critical HEENT: atraumatic Neck: full ROM Lungs: rales, rhonchi Heart: HR/BP stable Abdomen: soft, non-tender Extremities: no C/C/E Decubiti: location Micro: Microbiology Date/Time Source Procedure Growth Status 12/19/18 10:45 Nasal Nares Left MRSA Culture - Final Staphylococcus Aureus - Mrsa Complete 12/19/18 10:45 Rectum VRE Culture - Final NO VANCOMYCIN RESISTANT ENTEROCOCCUS ... Resulted 12/19/18 10:45 Rectum Pending Resulted Critical Care - Subjective ROS Limited/Unobtainable: Yes Condition: critical EKG Rhythm: Sinus Rhythm FI02: 25 Vent Support Breath Rate: 20 Vent Support Mode: AC Vent Tidal Volume: 650 Sputum Amount: Small PEEP: 5.0 PIP: 29 I&O: Intake and Output 12/21/18 12/22/18 19:00 07:00 Intake Total 770.000 ml Output Total 1080 ml 990 ml Balance -310.000 ml -990 ml IV Total 770.000 ml Output Urine Total 1080 ml 990 ml CXR: Clear, ET in good position ET-Tube: 7.0 ET Position: 24 Labs: Laboratory Tests Test 12/21/18 13:20 12/22/18 05:00 12/22/18 09:45 Troponin I 0.053 ng/mL (0.000-0.056) White Blood Count 8.4 K/UL (4.8-10.8) Red Blood Count 4.96 M/UL (4.20-5.40) Hemoglobin 13.0 G/DL (12.0-16.0) Hematocrit 40.7 % (37.0-47.0) Mean Corpuscular Volume 82 FL (80-99) Mean Corpuscular Hemoglobin 26.3 PG (27.0-31.0) L Mean Corpuscular Hemoglobin Concent 32.0 G/DL (32.0-36.0) Red Cell Distribution Width 15.9 % (11.6-14.8) H Platelet Count 482 K/UL (150-450) H Mean Platelet Volume 6.0 FL (6.5-10.1) L Neutrophils (%) (Auto) 72.2 % (45.0-75.0) Lymphocytes (%) (Auto) 15.8 % (20.0-45.0) L Monocytes (%) (Auto) 9.7 % (1.0-10.0) Eosinophils (%) (Auto) 1.2 % (0.0-3.0) Basophils (%) (Auto) 1.1 % (0.0-2.0) Sodium Level 139 MMOL/L (136-145) Potassium Level 3.2 MMOL/L (3.5-5.1) L Chloride Level 105 MMOL/L (98-107) Carbon Dioxide Level 19 MMOL/L (21-32) L Anion Gap 15 mmol/L (5-15) Blood Urea Nitrogen 13 mg/dL (7-18) Creatinine 0.9 MG/DL (0.55-1.30) Estimat Glomerular Filtration Rate > 60 mL/min (>60) Glucose Level 83 MG/DL (74-106) Calcium Level 8.5 MG/DL (8.5-10.1) Phosphorus Level 2.9 MG/DL (2.5-4.9) Magnesium Level 1.9 MG/DL (1.8-2.4) Total Bilirubin 1.1 MG/DL (0.2-1.0) H Direct Bilirubin 0.2 MG/DL (0.0-0.3) Aspartate Amino Transf (AST/SGOT) 17 U/L (15-37) Alanine Aminotransferase (ALT/SGPT) 40 U/L (12-78) Alkaline Phosphatase 150 U/L (46-116) H Total Protein 6.6 G/DL (6.4-8.2) Albumin 2.5 G/DL (3.4-5.0) L Globulin 4.1 g/dL Albumin/Globulin Ratio 0.6 (1.0-2.7) L Arterial Blood pH 7.558 (7.350-7.450) Arterial Blood Partial Pressure CO2 20.1 mmHg (35.0-45.0) *L Arterial Blood Partial Pressure O2 158.1 mmHg (75.0-100.0) H Arterial Blood HCO3 17.5 mmol/L (22.0-26.0) *L Arterial Blood Oxygen Saturation 99.2 % (95-100) Arterial Blood Base Excess -2.4 (-2-2) L Theo Test Positive Arsalan Noe MD Dec 22, 2018 10:31
--- NOTE | 2018-12-22 10:39 | NUR ---
RESPIRATORY NOTE: Dr. Noe wanted to place pt in CPAP PS 10 in 15 minutes, if pt tolerating well in 15 mins, will extubate. Inform Dr. Noe that pt was still sedated by Ativan given at [address] Noe wanted to wake pt up to try, if not awake then try later when pt is fully awake. Did wake pt up to explain the weaning plan, but pt was not fully awake and alert yet. Notofied LINDA Burgess, will try again later.
--- NOTE | 2018-12-22 12:00 | NUR ---
NURSE NOTES: Pt still asleep from morning Ativan 2 mg given. awaiting to wean once shes awake.
--- NOTE | 2018-12-22 14:00 | NUR ---
NURSE NOTES: turned and repositioned pt, oral care provided.
--- NOTE | 2018-12-22 14:22 | NUR ---
*-* INSURANCE *-* ALL CLINICALS AND REVIEWS HAVE BEEN FAXED TO: [employer]: [place] P- [phone] F- [phone]...........REVIEW/CLINICAL
--- NOTE | 2018-12-22 16:00 | NUR ---
NURSE NOTES: Dr. kwon rounded on pt, new orders in, will carry out.
--- NOTE | 2018-12-22 16:55 | Neurology Progress Note ---
Interim History Interim History ROS Limited/Unobtainable: Yes Complaints: AMS Events: Weaning trials have begun to be extubated today or tomorrow. Review of Systems All Systems: reviewed and negative except above Objective Physical Exam Last Vital Signs Date Time Temp Pulse Resp B/P (MAP) Pulse Ox O2 Delivery O2 Flow Rate FiO2 12/22/18 16:00 30 12/22/18 16:00 98.0 79 20 142/88 (106) 100 12/22/18 16:00 Mechanical Ventilator 12/21/18 11:54 2.0 Laboratory Tests Test 12/22/18 05:00 12/22/18 09:45 White Blood Count 8.4 K/UL (4.8-10.8) Red Blood Count 4.96 M/UL (4.20-5.40) Hemoglobin 13.0 G/DL (12.0-16.0) Hematocrit 40.7 % (37.0-47.0) Mean Corpuscular Volume 82 FL (80-99) Mean Corpuscular Hemoglobin 26.3 PG (27.0-31.0) L Mean Corpuscular Hemoglobin Concent 32.0 G/DL (32.0-36.0) Red Cell Distribution Width 15.9 % (11.6-14.8) H Platelet Count 482 K/UL (150-450) H Mean Platelet Volume 6.0 FL (6.5-10.1) L Neutrophils (%) (Auto) 72.2 % (45.0-75.0) Lymphocytes (%) (Auto) 15.8 % (20.0-45.0) L Monocytes (%) (Auto) 9.7 % (1.0-10.0) Eosinophils (%) (Auto) 1.2 % (0.0-3.0) Basophils (%) (Auto) 1.1 % (0.0-2.0) Sodium Level 139 MMOL/L (136-145) Potassium Level 3.2 MMOL/L (3.5-5.1) L Chloride Level 105 MMOL/L (98-107) Carbon Dioxide Level 19 MMOL/L (21-32) L Anion Gap 15 mmol/L (5-15) Blood Urea Nitrogen 13 mg/dL (7-18) Creatinine 0.9 MG/DL (0.55-1.30) Estimat Glomerular Filtration Rate > 60 mL/min (>60) Glucose Level 83 MG/DL (74-106) Calcium Level 8.5 MG/DL (8.5-10.1) Phosphorus Level 2.9 MG/DL (2.5-4.9) Magnesium Level 1.9 MG/DL (1.8-2.4) Total Bilirubin 1.1 MG/DL (0.2-1.0) H Direct Bilirubin 0.2 MG/DL (0.0-0.3) Aspartate Amino Transf (AST/SGOT) 17 U/L (15-37) Alanine Aminotransferase (ALT/SGPT) 40 U/L (12-78) Alkaline Phosphatase 150 U/L (46-116) H Total Protein 6.6 G/DL (6.4-8.2) Albumin 2.5 G/DL (3.4-5.0) L Globulin 4.1 g/dL Albumin/Globulin Ratio 0.6 (1.0-2.7) L Arterial Blood pH 7.558 (7.350-7.450) Arterial Blood Partial Pressure CO2 20.1 mmHg (35.0-45.0) *L Arterial Blood Partial Pressure O2 158.1 mmHg (75.0-100.0) H Arterial Blood HCO3 17.5 mmol/L (22.0-26.0) *L Arterial Blood Oxygen Saturation 99.2 % (95-100) Arterial Blood Base Excess -2.4 (-2-2) L Theo Test Positive General: well developed, well nourished Head: normocophalic Neck: no rigidity EENT: benign Neurologic Exam Mental Status: awake, alert Speech: other - INtubated Language: no aphasia Cranial Nerve II: fundus normal, visual georges, no papilledema Cranial Nerves III, IV, : EOMI, pupils - Left pupil > Right Pupil - both reactive Cranial Nerve V: normal facial sensations, temporales function normal Cranial Nerve VII: no facial asymmetry Cranial Nerve VIII: normal hearing Cranial Nerve XI: SCM symmetric Cranial Nerve XII: tongue midline, no tongue atrophy/fasciculations Motor System: normal muscle tone, no involuntary movement, no muscle wasting Sensory: normal pinprick, normal light touch Deep Tendon Reflexes: 1+ bicep (L), 1+ tricep (L), 1+ brachioradialis (L), 1+ knee (L), 1+ ankle (L); 2+ bicep (R), 2+ tricep (R), 2+ brachioradialis (R), 2+ knee (R), 2+ ankle (R) Reflexes: flexor plantar (L), flexor plantar (R); extensor plantar (L), extensor plantar (R) Objective Just as alert today- able to follow both midline and non midline commands. 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 Negative for acute intracranial bleed or mass effect (2) Acute respiratory failure Assessment & Plan: Wean vent as able - for extubation possibly today or tomorrow (3) Cocaine abuse Assessment & Plan: [facility] Protocol - Consider Assessment prior to extubation (4) Hypertensive emergency Assessment & Plan: Maintain BP< 140-160 (5) Altered mental state Assessment & Plan: Acute Encephalopathy, Toxic vs Metabolic Secondary to Cocaine Use / Resp Failure/ CHF Exacerbation Wean ETT as able CT Brain to r/o acute bleed Consider MRI if CT NAD Q2 Hour Neuro Obs Correct Lytes Maintain Normothermia Normoglycemia - use ISS as needed Na 135-145 [facility] Protocol - Banana Bag / Thiamine Ativan 1mg as needed for agitation PREVENT DELIRIUM: Reorient patient frequently Minimize/ Avoid use of benzodiazapenes, opioids, or anticholinergic drugs. Encourage visitors/ family friends Optimize sleep hygiene by making room dark and quiet in the evening Consider adding Melatonin if having difficulty sleeping at night. Status: stable, progressing Juliane Chaidez N.P. Dec 22, 2018 16:55
--- NOTE | 2018-12-22 17:37 | Nephrology Progress Note ---
Assessment/Plan Problem List: (1) Acute respiratory failure (2) Pulmonary hypertension, moderate to severe (3) Severe left ventricular systolic dysfunction (4) Cocaine abuse (5) Hypertensive emergency (6) Altered mental state Assessment Acute renal failure- multi factorial due to one or more of following: (1) Acute respiratory failure on vent (2) Hypertensive emergency (3) COPD (chronic obstructive pulmonary disease) (4) Severe left ventricular systolic dysfunction, Low ej fx (5) Pulmonary hypertension, moderate to severe (6) Pulmonary edema (7) Cocaine abuse Plan Adjust BP meds Avoid Nephrotoxics Pulmonary support Aim to reduce afterload vasotec and digoxin per orders Subjective ROS Limited/Unobtainable: Yes Objective Objective Last 24 Hour Vital Signs Date Time Temp Pulse Resp B/P (MAP) Pulse Ox O2 Delivery O2 Flow Rate FiO2 12/22/18 16:57 85 20 25 12/22/18 16:00 30 12/22/18 16:00 98.0 79 20 142/88 (106) 100 12/22/18 16:00 85 12/22/18 16:00 Mechanical Ventilator 12/22/18 15:00 81 20 36/91 (73) 100 12/22/18 14:38 84 20 25 12/22/18 14:00 80 20 152/89 (110) 100 12/22/18 13:15 82 146/91 12/22/18 13:12 82 20 25 12/22/18 13:00 75 20 140/91 (107) 100 12/22/18 12:00 Mechanical Ventilator 12/22/18 12:00 30 12/22/18 12:00 82 12/22/18 12:00 98.0 62 20 139/80 (99) 100 12/22/18 11:00 72 20 146/91 (109) 100 12/22/18 10:39 83 20 25 12/22/18 10:08 87 25 12/22/18 10:00 70 20 153/89 (110) 100 12/22/18 09:07 97.6 12/22/18 09:00 89 20 30 12/22/18 09:00 65 20 140/95 (110) 100 12/22/18 08:40 165/95 12/22/18 08:00 97.6 62 20 139/80 (99) 100 12/22/18 08:00 Mechanical Ventilator 12/22/18 08:00 80 12/22/18 08:00 30 12/22/18 07:00 76 20 155/95 (115) 100 12/22/18 06:57 82 19 30 12/22/18 06:00 76 20 165/95 (118) 100 12/22/18 05:32 74 158/88 12/22/18 05:15 74 20 30 12/22/18 05:00 87 20 136/74 (94) 100 12/22/18 04:00 30 12/22/18 04:00 60 12/22/18 04:00 97.6 60 20 120/91 (101) 100 12/22/18 04:00 Mechanical Ventilator 12/22/18 03:03 68 20 30 12/22/18 03:00 69 20 163/88 (113) 100 12/22/18 02:00 81 20 150/73 (98) 100 12/22/18 01:05 62 20 30 12/22/18 01:00 59 20 160/81 (107) 100 12/22/18 00:00 98.2 61 20 145/78 (100) 100 12/22/18 00:00 30 12/22/18 00:00 61 12/22/18 00:00 Mechanical Ventilator 12/21/18 23:40 67 158/83 12/21/18 23:26 63 20 30 12/21/18 23:00 67 20 158/83 (108) 100 12/21/18 22:00 67 20 157/79 (105) 100 12/21/18 21:20 66 20 30 12/21/18 21:00 65 20 137/75 (95) 100 12/21/18 20:00 85 12/21/18 20:00 Mechanical Ventilator 12/21/18 20:00 30 12/21/18 20:00 97.6 85 20 144/72 (96) 100 12/21/18 19:13 61 20 30 12/21/18 18:56 97.3 62 21 134/74 (94) 100 12/21/18 18:00 97.3 64 20 129/68 (88) 100 Intake and Output 12/21/18 12/22/18 19:00 07:00 Intake Total 770.000 ml Output Total 1080 ml 1070 ml Balance -310.000 ml -1070 ml IV Total 770.000 ml Output Urine Total 1080 ml 1070 ml Laboratory Tests 12/22/18 05:00: White Blood Count 8.4, Red Blood Count 4.96, Hemoglobin 13.0, Hematocrit 40.7, Mean Corpuscular Volume 82, Mean Corpuscular Hemoglobin 26.3L, Mean Corpuscular Hemoglobin Concent 32.0, Red Cell Distribution Width 15.9H, Platelet Count 482H , Mean Platelet Volume 6.0L, Neutrophils (%) (Auto) 72.2, Lymphocytes (%) (Auto ) 15.8L, Monocytes (%) (Auto) 9.7, Eosinophils (%) (Auto) 1.2, Basophils (%) ( Auto) 1.1, Sodium Level 139, Potassium Level 3.2L, Chloride Level 105, Carbon Dioxide Level 19L, Anion Gap 15, Blood Urea Nitrogen 13, Creatinine 0.9, Estimat Glomerular Filtration Rate > 60, Glucose Level 83, Calcium Level 8.5, Phosphorus Level 2.9, Magnesium Level 1.9, Total Bilirubin 1.1H, Direct Bilirubin 0.2, Aspartate Amino Transf (AST/SGOT) 17, Alanine Aminotransferase ( ALT/SGPT) 40, Alkaline Phosphatase 150H, Total Protein 6.6, Albumin 2.5L, Globulin 4.1, Albumin/Globulin Ratio 0.6L 12/22/18 09:45: Arterial Blood pH 7.558*H, Arterial Blood Partial Pressure CO2 20.1*L, Arterial Blood Partial Pressure O2 158.1H, Arterial Blood HCO3 17.5*L, Arterial Blood Oxygen Saturation 99.2, Arterial Blood Base Excess -2.4L, Theo Test Positive Height (Feet): 5 Height (Inches): 6.00 Weight (Pounds): 118 General Appearance: no apparent distress Cardiovascular: normal rate Respiratory/Chest: decreased breath sounds Abdomen: soft, distended Simeon Wright MD Dec 22, 2018 17:37
[2018-12-22] MEDS: Lisinopril 2.5mg tab NG SCH (18:32)
--- NOTE | 2018-12-22 18:57 | Internal Med Progress Note ---
Subjective Date of Service: Dec 22, 2018 Physician Name Salbador Bello Attending Physician Rambo Ardon MD Current Medications Medications (Trade) Dose Ordered Sig/Alisia Route PRN Reason Start Time Stop Time Status Last Admin Dose Admin Acetaminophen (Tylenol) 650 mg Q4H PRN ORAL Fever 12/19/18 13:30 01/18/19 13:29 Albuterol/ Ipratropium (Albuterol/ Ipratropium) 3 ml Q4H PRN HHN Shortness of Breath 12/19/18 13:30 12/24/18 13:29 Clonidine HCl (Catapres Tab) 0.1 mg Q4H PRN NG bp over 180 syst 12/21/18 16:19 01/20/19 16:18 Dextrose (Dextrose 50%) STAT PRN IV Hypoglycemia 12/19/18 13:30 01/18/19 13:29 Diltiazem HCl (Cardizem) 30 mg EVERY 8 HOURS NG 12/22/18 14:00 01/20/19 17:59 12/22/18 13:15 Haloperidol Lactate 5 mg/ Dextrose 56 ml @ 112 mls/hr Q1H PRN IVPB AGITATION 12/21/18 10:15 01/20/19 10:14 Heparin Sodium (Porcine) (Heparin 5000 units/ml) 5,000 units EVERY 12 HOURS SUBQ 12/19/18 21:00 01/18/19 20:59 12/22/18 08:39 Hydralazine HCl (Apresoline) 10 mg Q4H PRN IV bp over 160 syst 12/21/18 16:19 01/19/19 16:18 Lisinopril (Zestril) 5 mg BID NG 12/22/18 18:00 01/21/19 08:59 12/22/18 18:32 Morphine Sulfate (Morphine Sulfate) 4 mg Q4H PRN IVP For Pain 12/19/18 13:30 12/26/18 13:29 12/22/18 08:37 Nitroglycerin (Ntg) 0.4 mg Q5M PRN SL Prn Chest Pain 12/19/18 11:00 01/18/19 10:59 12/19/18 11:14 Pantoprazole (Protonix) 40 mg Q12HR IV 12/20/18 21:00 01/19/19 08:59 12/22/18 08:40 Polyethylene Glycol (Miralax) 17 gm DAILYPRN PRN ORAL Constipation 12/19/18 13:30 01/18/19 13:29 Temazepam (Restoril) 15 mg HSPRN PRN ORAL Insomnia 12/19/18 13:30 12/26/18 13:29 Allergies: Coded Allergies: No Known Allergies (Unverified , 05/17/18) ROS Limited/Unobtainable: Yes Subjective 58 YO F admitted with respiratory failure. Intubated and sedated. Cover for Int Med-DR Ardon. ICU Objective Last Vital Signs Date Time Temp Pulse Resp B/P (MAP) Pulse Ox O2 Delivery O2 Flow Rate FiO2 12/22/18 18:32 163/87 12/22/18 18:00 93 20 100 12/22/18 16:57 25 12/22/18 16:00 98.0 12/22/18 16:00 Mechanical Ventilator 12/21/18 11:54 2.0 Laboratory Tests Test 12/22/18 05:00 12/22/18 09:45 White Blood Count 8.4 K/UL (4.8-10.8) Red Blood Count 4.96 M/UL (4.20-5.40) Hemoglobin 13.0 G/DL (12.0-16.0) Hematocrit 40.7 % (37.0-47.0) Mean Corpuscular Volume 82 FL (80-99) Mean Corpuscular Hemoglobin 26.3 PG (27.0-31.0) L Mean Corpuscular Hemoglobin Concent 32.0 G/DL (32.0-36.0) Red Cell Distribution Width 15.9 % (11.6-14.8) H Platelet Count 482 K/UL (150-450) H Mean Platelet Volume 6.0 FL (6.5-10.1) L Neutrophils (%) (Auto) 72.2 % (45.0-75.0) Lymphocytes (%) (Auto) 15.8 % (20.0-45.0) L Monocytes (%) (Auto) 9.7 % (1.0-10.0) Eosinophils (%) (Auto) 1.2 % (0.0-3.0) Basophils (%) (Auto) 1.1 % (0.0-2.0) Sodium Level 139 MMOL/L (136-145) Potassium Level 3.2 MMOL/L (3.5-5.1) L Chloride Level 105 MMOL/L (98-107) Carbon Dioxide Level 19 MMOL/L (21-32) L Anion Gap 15 mmol/L (5-15) Blood Urea Nitrogen 13 mg/dL (7-18) Creatinine 0.9 MG/DL (0.55-1.30) Estimat Glomerular Filtration Rate > 60 mL/min (>60) Glucose Level 83 MG/DL (74-106) Calcium Level 8.5 MG/DL (8.5-10.1) Phosphorus Level 2.9 MG/DL (2.5-4.9) Magnesium Level 1.9 MG/DL (1.8-2.4) Total Bilirubin 1.1 MG/DL (0.2-1.0) H Direct Bilirubin 0.2 MG/DL (0.0-0.3) Aspartate Amino Transf (AST/SGOT) 17 U/L (15-37) Alanine Aminotransferase (ALT/SGPT) 40 U/L (12-78) Alkaline Phosphatase 150 U/L (46-116) H Total Protein 6.6 G/DL (6.4-8.2) Albumin 2.5 G/DL (3.4-5.0) L Globulin 4.1 g/dL Albumin/Globulin Ratio 0.6 (1.0-2.7) L Arterial Blood pH 7.558 (7.350-7.450) Arterial Blood Partial Pressure CO2 20.1 mmHg (35.0-45.0) *L Arterial Blood Partial Pressure O2 158.1 mmHg (75.0-100.0) H Arterial Blood HCO3 17.5 mmol/L (22.0-26.0) *L Arterial Blood Oxygen Saturation 99.2 % (95-100) Arterial Blood Base Excess -2.4 (-2-2) L Theo Test Positive Intake and Output 12/21/18 12/22/18 19:00 07:00 Intake Total 770.000 ml Output Total 1080 ml 1070 ml Balance -310.000 ml -1070 ml IV Total 770.000 ml Output Urine Total 1080 ml 1070 ml Objective PHYSICAL EXAMINATION: VITAL SIGNS: Temperature 98.2, respirations 30, pulse 123, and blood pressure 186/130. GENERAL: The patient is a well-developed and well-nourished female, who is intubated and sedated. HEENT: Eyes, pupils are equal and responsive to light and accommodation. Extraocular movements are intact. NECK: Supple without lymphadenopathy. CHEST: Mech vent; Crackles in bilateral bases with expiratory wheezes. Otherwise, without rhonchi. ABDOMEN: Soft, nontender, and nondistended. Positive bowel sounds. No evidence of hepatosplenomegaly. Currently, no rebound or guarding noted. CARDIOVASCULAR: Tachycardic. Regular rate. S1 and S2 are normal without murmurs, rubs, or gallops. ABDOMEN: Soft, nontender, nondistended. Positive bowel sounds. No evidence of hepatosplenomegaly. Currently, no rebound or guarding noted. EXTREMITIES: Negative for clubbing, cyanosis, or edema. RECTAL/GENITAL: Refused. NEUROLOGIC: Cranial nerves II through XII are grossly intact without focal deficits. Assessment/Plan Assessment/Plan ASSESSMENT: This is a 58-year-old female. 1. Respiratory failure. 2. Congestive heart failure. 3. pneumonia. 4. Chronic obstructive pulmonary disease. 5. Hypertension. 6. Cocaine abuse. TREATMENT: 1. Respiratory failure. . The patient is intubated in the intensive care unit. We will follow recommendation of Pulmonary. The patient has been started empirically on intravenous Lasix for congestive heart failure. We will follow recommendation of Pulmonary- Dr. Arsalan Noe 2. Congestive heart failure. Cardiology consultation is obtained with Dr. Tyler Stewart. BNP is elevated. An echocardiogram is pending. We will follow recommendation of Cardiology. 3. Chronic obstructive pulmonary disease as above. A Pulmonary consultation has been obtained with Dr. Arsalan Noe. We will follow recommendations of Pulmonary. 4. Hypertension. The patient is currently on hydralazine. 5. Cocaine abuse. Salbador Bello MD Dec 22, 2018 18:57
--- NOTE | 2018-12-22 19:11 | NUR ---
HAND-OFF: Report given to LINDA López.
[2018-12-22] MEDS ORDERED: NS 275ml ONE (19:24)
[2018-12-22] MEDS ORDERED: Tubing IV Secondary IV ONE (19:24)
--- NOTE | 2018-12-22 19:30 | NUR ---
NURSE NOTES: Received pt in no acute distress. Awake, alert, oriented, follow commands; currently denies any pain, denies SOB. remains orally intubated and appears to be tolerating weaning trials; currently on IMV 20; PS 10 saturating 100% on .30 FiO2. OGT remains in place but still NPO. Afebrile, NSR, PIV sites intact with IV at TKO. FC intact, UOP 50ml/h. skin dry and intact. Will continue to monitor tolerance to weaning and extubate as ordered.
--- NOTE | 2018-12-22 20:25 | NUR ---
NURSE NOTES: Tolerated weaning parameters; extubated as ordered with 2 RT's[address] Placed pt on 2l/m NC; saturating 100%. Pt awake, alert, follow commands. OGT kept in place. Will continue to monitor.
--- NOTE | 2018-12-22 20:40 | NUR ---
RESPIRATORY NOTE: Received Patient on Vent. ordered weaning trial of 15 minutes and if patient tolerates well then extubate. No ABG needed. RN Rene said to wean for an hour and if toleration is well to extubate. Patient tolerated weaning for more than an hour. Vitals were ok. patient was tolerating well and in no distress amd following commands. Extubated patient and placed on 2l nasal canula. RN and Rt was in room during extubation. Patient is ok and in no distress. will continue to monitor.
--- NOTE | 2018-12-22 21:50 | NUR ---
NURSE NOTES: Pt calm, cooperative; restraints dc'd. No respiratory distress, denies SOB, o2 sats 100 on 2lNC
[2018-12-23] VITALS (24 sets, daily range): BP systolic 121–162; BP diastolic 56–105
--- NOTE | 2018-12-23 | NUR ---
NURSE NOTES: Calm, asleep, no distress; sats 100%; VSS
--- NOTE | 2018-12-23 02:00 | NUR ---
NURSE NOTES: continues to sleep; no distress, VSS
--- NOTE | 2018-12-23 04:00 | NUR ---
NURSE NOTES: AM care rendered. No BM. Skin intact, PIV sites intact. denies pain, VSS
[2018-12-23] MEDS: dilTIAZem HCl 30mg tab NG SCH ×3 (06:23→21:42)
--- NOTE | 2018-12-23 06:34 | NUR ---
NURSE NOTES: Pt bit on the OGT and pulled it out. c/o hunger. Ice chips given, well tolerated.
--- NOTE | 2018-12-23 07:26 | NUR ---
HAND-OFF: Report given to LINDA Burgess.
--- NOTE | 2018-12-23 08:00 | NUR ---
NURSE NOTES: Received pt in no acute distress. Awake, alert, oriented, follow commands; currently denies any pain, denies SOB. Pt on 2L NC saturating 100% on. still NPO, swallow eval today. Afebrile, NSR, PIV sites intact with IV at TKO. FC intact, UOP 50ml/h. skin dry and intact. Will continue to monitor tolerance to weaning and extubate as ordered.
--- NOTE | 2018-12-23 09:05 | NUR ---
[employer] SI:RESPIRATORY FAILURE . CHF VS: BP 154/105, P 86, T 98.1, RR 22, SpO2 100 on 2.0L O2 NC IS: LISINOPRIL 2.5mg NG CARDIZEM 30mg NG PROTONIX 40mg IV HEPARIN SUBQ ICU STATUS
[2018-12-23 09:23] LABS: BASOPHILS % (AUTO) 0.9 % (0.0-2.0); EOSINOPHILS % (AUTO) 1.1 % (0.0-3.0); HEMATOCRIT 47.2 % (37.0-47.0); LYMPHOCYTES % (AUTO) 11.1 % (20.0-45.0); MEAN CORPUSCULAR VOLUME 83 FL (80-99); MONOCYTES % (AUTO) 6.4 % (1.0-10.0); NEUTROPHILS % (AUTO) 80.4 % (45.0-75.0); PLATELET COUNT 463 K/UL (150-450); RED BLOOD COUNT 5.72 M/UL (4.20-5.40); RED CELL DISTRIBUTION WIDTH 15.8 % (11.6-14.8); WHITE BLOOD COUNT 10.6 K/UL (4.8-10.8)
[2018-12-23] MEDS: Pantoprazole Inj IV SCH (09:43)
[2018-12-23] MEDS: Lisinopril 2.5mg tab NG SCH (09:44)
[2018-12-23] MEDS: Heparin 5000 units/ml inj SUBQ SCH ×2 (09:46→21:41)
--- NOTE | 2018-12-23 09:47 | Nephrology Progress Note ---
Assessment/Plan Problem List: (1) Acute respiratory failure (2) Pulmonary hypertension, moderate to severe (3) Severe left ventricular systolic dysfunction (4) Cocaine abuse (5) Hypertensive emergency (6) Altered mental state Assessment Acute renal failure- multi factorial due to one or more of following: (1) Acute respiratory failure on vent (2) Hypertensive emergency (3) COPD (chronic obstructive pulmonary disease) (4) Severe left ventricular systolic dysfunction, Low ej fx (5) Pulmonary hypertension, moderate to severe (6) Pulmonary edema (7) Cocaine abuse Plan extubated last night 12/22 St eval Adjust BP meds Avoid Nephrotoxics Pulmonary support Aim to reduce afterload vasotec and digoxin per orders Subjective ROS Limited/Unobtainable: No Objective Objective Last 24 Hour Vital Signs Date Time Temp Pulse Resp B/P (MAP) Pulse Ox O2 Delivery O2 Flow Rate FiO2 12/23/18 09:00 79 27 138/74 (95) 100 12/23/18 08:00 72 12/23/18 08:00 98.0 70 22 136/69 (91) 100 12/23/18 07:00 80 20 146/77 (100) 100 12/23/18 06:31 Nasal Cannula 2.0 28 12/23/18 06:31 100 Nasal Cannula 2.0 28 12/23/18 06:31 80 23 Nasal Cannula 2.0 28 12/23/18 06:23 79 141/84 12/23/18 06:00 79 22 141/84 (103) 100 12/23/18 05:00 86 18 154/105 (121) 100 12/23/18 04:00 86 12/23/18 04:00 98.1 86 20 135/80 (98) 100 12/23/18 04:00 Nasal Cannula 2.0 Nasal Cannula 2.0 12/23/18 03:00 82 21 140/84 (102) 100 12/23/18 02:00 84 23 139/86 (103) 100 12/23/18 01:00 98.4 76 26 134/92 (106) 100 12/23/18 00:00 Nasal Cannula 2.0 Nasal Cannula 2.0 12/23/18 00:00 70 12/23/18 00:00 70 19 134/64 (87) 100 12/22/18 23:00 72 19 131/62 (85) 100 12/22/18 22:00 82 28 136/68 (90) 100 12/22/18 21:48 87 138/69 12/22/18 21:00 97 22 138/69 (92) 100 12/22/18 20:39 100 Nasal Cannula 2.0 28 12/22/18 20:39 Nasal Cannula 2.0 28 12/22/18 20:38 Nasal Cannula 2.0 28 12/22/18 20:33 25 12/22/18 20:00 30 12/22/18 20:00 98.5 92 25 161/76 (104) 100 12/22/18 20:00 96 12/22/18 20:00 Mechanical Ventilator 12/22/18 19:00 99 19 25 12/22/18 19:00 89 20 152/80 (104) 100 12/22/18 18:57 100 21 25 12/22/18 18:32 163/87 12/22/18 18:00 93 20 163/87 (112) 100 12/22/18 17:00 94 20 149/90 (109) 100 12/22/18 16:57 85 20 25 12/22/18 16:00 30 12/22/18 16:00 98.0 79 20 142/88 (106) 100 12/22/18 16:00 85 12/22/18 16:00 Mechanical Ventilator 12/22/18 15:00 81 20 36/91 (73) 100 12/22/18 15:00 81 20 136/91 (106) 100 12/22/18 14:38 84 20 25 12/22/18 14:00 80 20 152/89 (110) 100 12/22/18 13:15 82 146/91 12/22/18 13:12 82 20 25 12/22/18 13:00 75 20 140/91 (107) 100 12/22/18 12:00 Mechanical Ventilator 12/22/18 12:00 30 12/22/18 12:00 82 12/22/18 12:00 98.0 62 20 139/80 (99) 100 12/22/18 11:00 72 20 146/91 (109) 100 12/22/18 10:39 83 20 25 12/22/18 10:08 87 25 12/22/18 10:00 70 20 153/89 (110) 100 Intake and Output 12/22/18 12/23/18 19:00 07:00 Intake Total 60 ml Output Total 780 ml 525 ml Balance -780 ml -465 ml Intake Oral 0 ml Other 60 ml Output Urine Total 780 ml 525 ml Laboratory Tests 12/23/18 08:20: White Blood Count 10.6, Red Blood Count 5.72H, Hemoglobin 15.0, Hematocrit 47.2H , Mean Corpuscular Volume 83, Mean Corpuscular Hemoglobin 26.3L, Mean Corpuscular Hemoglobin Concent 31.9L, Red Cell Distribution Width 15.8H, Platelet Count 463H, Mean Platelet Volume 5.6L, Neutrophils (%) (Auto) 80.4H, Lymphocytes (%) (Auto) 11.1L, Monocytes (%) (Auto) 6.4, Eosinophils (%) (Auto) 1.1, Basophils (%) (Auto) 0.9, Sodium Level [Pending], Potassium Level [Pending] , Chloride Level [Pending], Carbon Dioxide Level [Pending], Blood Urea Nitrogen [Pending], Creatinine [Pending], Estimat Glomerular Filtration Rate [Pending], Glucose Level [Pending], Calcium Level [Pending], Phosphorus Level [Pending], Magnesium Level [Pending], Total Bilirubin [Pending], Aspartate Amino Transf ( AST/SGOT) [Pending], Alanine Aminotransferase (ALT/SGPT) [Pending], Alkaline Phosphatase [Pending], Total Protein [Pending], Albumin [Pending], Globulin [ Pending] Height (Feet): 5 Height (Inches): 6.00 Weight (Pounds): 107 EENT: other - extubated Cardiovascular: normal rate Respiratory/Chest: decreased breath sounds Abdomen: soft, distended Simeon Wright MD Dec 23, 2018 09:47
--- NOTE | 2018-12-23 10:00 | NUR ---
NURSE NOTES: Dr. Noe at bedside. new orders in, will carry out
--- NOTE | 2018-12-23 10:13 | NUR ---
RD ASSESSMENT & RECOMMENDATIONS SEE CARE ACTIVITY FOR COMPLETE ASSESSMENT DAILY ESTIMATED NEEDS: Needs based on cardiac, pulmonary/ 53.6kg 25-30 kcals/kg 7324-8008 total kcals 1-1.5 g protein/kg 54-80 g total protein 25-30 mL/kg 7275-1217 total fluid mLs NUTRITION DIAGNOSIS: * Swallowing difficulty R/T respiratory status as evidenced by s/p intubation, now extubated, CHAPLAIN RESIDENT eval is pending. * Altered nutrition related lab values r/t DM as evidenced by Uglu on adm 4+, A1C 7.3. CURRENT DIET: CHAPLAIN RESIDENT eval pending PO DIET RECOMMENDATIONS: CCHO LOW / Texture per CHAPLAIN RESIDENT ADDITIONAL RECOMMENDATIONS: * Calibrated bedscale wt for standing wt for accurate CBW * A1C for eval of glycemic control- A1c 7.3 * CHAPLAIN RESIDENT eval post extubation * Lytes daily, replete as needed * Obtain a STANDING WEIGHT as able for accurate CBW
--- NOTE | 2018-12-23 10:26 | Pulmonolgy Critical Care Note ---
Critical Care - Asmt/Plan Problems: (1) Acute respiratory failure (2) Hypertensive emergency (3) COPD (chronic obstructive pulmonary disease) (4) Severe left ventricular systolic dysfunction (5) Pulmonary hypertension, moderate to severe (6) Pulmonary edema (7) Cocaine abuse Respiratory: adjust tidal volume, monitor respiratory rate, adjust FIO2, CXR Cardiac: continue pressors, d/c director medical science Renal: F/U I&O Infectious Disease: check cultures Gastrointestinal: continue feedings/current rate Endocrine: monitor blood sugar Hematologic: monitor H/H, transfuse if hgb<8.5 Neurologic: PRN Ativan Affect: PRN ativan Notes Reviewed: cardio Discussed with: nurses Critical Care - Objective Last 24 Hour Vital Signs Date Time Temp Pulse Resp B/P (MAP) Pulse Ox O2 Delivery O2 Flow Rate FiO2 12/23/18 09:44 138/74 12/23/18 09:00 79 27 138/74 (95) 100 12/23/18 08:00 72 12/23/18 08:00 98.0 70 22 136/69 (91) 100 12/23/18 07:00 80 20 146/77 (100) 100 12/23/18 06:31 Nasal Cannula 2.0 28 12/23/18 06:31 100 Nasal Cannula 2.0 28 12/23/18 06:31 80 23 Nasal Cannula 2.0 28 12/23/18 06:23 79 141/84 12/23/18 06:00 79 22 141/84 (103) 100 12/23/18 05:00 86 18 154/105 (121) 100 12/23/18 04:00 86 12/23/18 04:00 98.1 86 20 135/80 (98) 100 12/23/18 04:00 Nasal Cannula 2.0 Nasal Cannula 2.0 12/23/18 03:00 82 21 140/84 (102) 100 12/23/18 02:00 84 23 139/86 (103) 100 12/23/18 01:00 98.4 76 26 134/92 (106) 100 12/23/18 00:00 Nasal Cannula 2.0 Nasal Cannula 2.0 12/23/18 00:00 70 12/23/18 00:00 70 19 134/64 (87) 100 12/22/18 23:00 72 19 131/62 (85) 100 12/22/18 22:00 82 28 136/68 (90) 100 12/22/18 21:48 87 138/69 12/22/18 21:00 97 22 138/69 (92) 100 12/22/18 20:39 100 Nasal Cannula 2.0 28 12/22/18 20:39 Nasal Cannula 2.0 28 12/22/18 20:38 Nasal Cannula 2.0 28 12/22/18 20:33 25 12/22/18 20:00 30 12/22/18 20:00 98.5 92 25 161/76 (104) 100 12/22/18 20:00 96 12/22/18 20:00 Mechanical Ventilator 12/22/18 19:00 99 19 25 12/22/18 19:00 89 20 152/80 (104) 100 12/22/18 18:57 100 21 25 12/22/18 18:32 163/87 12/22/18 18:00 93 20 163/87 (112) 100 12/22/18 17:00 94 20 149/90 (109) 100 12/22/18 16:57 85 20 25 12/22/18 16:00 30 12/22/18 16:00 98.0 79 20 142/88 (106) 100 12/22/18 16:00 85 12/22/18 16:00 Mechanical Ventilator 12/22/18 15:00 81 20 36/91 (73) 100 12/22/18 15:00 81 20 136/91 (106) 100 12/22/18 14:38 84 20 25 12/22/18 14:00 80 20 152/89 (110) 100 12/22/18 13:15 82 146/91 12/22/18 13:12 82 20 25 12/22/18 13:00 75 20 140/91 (107) 100 12/22/18 12:00 Mechanical Ventilator 12/22/18 12:00 30 12/22/18 12:00 82 12/22/18 12:00 98.0 62 20 139/80 (99) 100 12/22/18 11:00 72 20 146/91 (109) 100 12/22/18 10:39 83 20 25 Status: awake Condition: critical HEENT: atraumatic, normocephalic Lungs: chest wall tender Heart: HR/BP stable Abdomen: soft Extremities: no C/C/E Critical Care - Subjective Interval Events: tolerating extubation FI02: 28 Vent Support Breath Rate: 20 Vent Support Mode: IMV/SIMV Vent Tidal Volume: 650 Sputum Amount: None PEEP: 5.0 PIP: 28 I&O: Intake and Output 12/22/18 12/23/18 19:00 07:00 Intake Total 60 ml Output Total 780 ml 525 ml Balance -780 ml -465 ml Intake Oral 0 ml Other 60 ml Output Urine Total 780 ml 525 ml ET-Tube: 7.0 ET Position: 24 Labs: Laboratory Tests Test 12/23/18 08:20 White Blood Count 10.6 K/UL (4.8-10.8) Red Blood Count 5.72 M/UL (4.20-5.40) H Hemoglobin 15.0 G/DL (12.0-16.0) Hematocrit 47.2 % (37.0-47.0) H Mean Corpuscular Volume 83 FL (80-99) Mean Corpuscular Hemoglobin 26.3 PG (27.0-31.0) L Mean Corpuscular Hemoglobin Concent 31.9 G/DL (32.0-36.0) L Red Cell Distribution Width 15.8 % (11.6-14.8) H Platelet Count 463 K/UL (150-450) H Mean Platelet Volume 5.6 FL (6.5-10.1) L Neutrophils (%) (Auto) 80.4 % (45.0-75.0) H Lymphocytes (%) (Auto) 11.1 % (20.0-45.0) L Monocytes (%) (Auto) 6.4 % (1.0-10.0) Eosinophils (%) (Auto) 1.1 % (0.0-3.0) Basophils (%) (Auto) 0.9 % (0.0-2.0) Sodium Level Pending Potassium Level Pending Chloride Level Pending Carbon Dioxide Level Pending Blood Urea Nitrogen Pending Creatinine Pending Estimat Glomerular Filtration Rate Pending Glucose Level Pending Calcium Level Pending Phosphorus Level Pending Magnesium Level Pending Total Bilirubin Pending Aspartate Amino Transf (AST/SGOT) Pending Alanine Aminotransferase (ALT/SGPT) Pending Alkaline Phosphatase Pending Total Protein Pending Albumin Pending Globulin Pending Arsalan Noe MD Dec 23, 2018 10:26
--- NOTE | 2018-12-23 10:50 | NUR ---
NURSE NOTES: Received report from LINDA Morgan. Patient awake sitting on the bed, patient oriented to name, reality orientation provided. On 2L oxygen via N/C satting 100%.Denies any pain pain or discomfort. Temp 99.6 oral cooling measure provided. SR on the conveyor monitor HR 96. Instructed patient to use call light for assistance. Bed locked and in low position. Bed alarm on. Patient with order to transfer to TELEMETRY. Contact isolation maintained and observed. Will continue plan of care. Addendum: 12/23/18 at [id number] by ANEL MCKEON RN RN chart fro [facility]
[2018-12-23 10:55] LABS: ALANINE AMINOTRANSFERASE 35 U/L (12-78); ALBUMIN 2.7 G/DL (3.4-5.0); ALBUMIN/GLOBULIN RATIO 0.5 (1.0-2.7); ALKALINE PHOSPHATASE 162 U/L (46-116); ANION GAP 16 mmol/L (5-15); ASPARTATE AMINO TRANSFERASE 24 U/L (15-37); BILIRUBIN,TOTAL 1.2 MG/DL (0.2-1.0); BLOOD UREA NITROGEN 13 mg/dL (7-18); CALCIUM 9.5 MG/DL (8.5-10.1); CARBON DIOXIDE 18 MMOL/L (21-32); CHLORIDE 99 MMOL/L (98-107); PHOSPHORUS 4.1 MG/DL (2.5-4.9); POTASSIUM 3.8 MMOL/L (3.5-5.1); SODIUM 133 MMOL/L (136-145)
[2018-12-23 10:57] LABS: BILIRUBIN,DIRECT 0.2 MG/DL (0.0-0.3)
--- NOTE | 2018-12-23 12:00 | NUR ---
NURSE NOTES: Pt resting in bed. ate 75% lunch. resting well.
--- NOTE | 2018-12-23 12:15 | NUR ---
ST NOTE: BEDSIDE SWALLOW EVAL RECEIVED BEDSIDE SWALLOW EVAL ORDER CHART REVIEWED PRIOR THE EVALUATION PT IS A 58-YEAR-OLD FEMALE WHO WAS ADMITTED FOR RESP DISTRESS, PT WAS INTUBATED ON 12/19/18 AND EXTUBATED ON 12/22/18 DUE TO ACUTE RESP FAILURE. THE INITIAL CXR: Bilateral diffuse interstitial and airspace infiltrates versus edema, favor the latter, and bilateral pleural effusions DYSPHAGIA RISK FACTORS: COPD, HISTORY OF CVA(PER CT HEAD, OLD LACUNAR INFARCTS ARE SEEN IN THE ANTERIOR BASAL GANGLIA, BUT NEGATIVE FOR ACUTE INTRACRANIAL BLEED), SUBSTANCE ABUSE(COCAINE), QUESTIONABLE CURRENT SMOKER(HOW LONG? HOW MANY PER DAY?) AND ASTHMA. PLOF: UNKNOWN. NO POLST WAS NOTED IN THE CHART. CURRENT STATUS: PT SEEN AT BEDSIDE IN LATE AM. PER RN, PT WAS TOLERATING SOFT, EASY CHEW DIET WITHOUT S/S OF ASPIRATION. PT ALERT, ORIENTED X 3, ABLE TO FOLLOW SIMPLE COMMANDS, BUT SEEMS SLOW. PT HAS NASAL CANNULA(2L) BUT DID NOT USE IT. POST 1 DAY EXTUBATION GIVEN PO TRIALS: THIN(CUP-SEQUENTIAL AND ONE SIP), PUREE(TSP) AND MASTICATED SOLID(TUNA SANDWICHES) INITIAL IMPRESSIONS: PROBABLE MILD OR WORSENED OROPHARYNGEAL DYSPHAGIA MISSING TEETH, REDUCED AND SLOW LABIAL AND LINGUAL MOVEMENT AND STRENGTH, SLOW MASTICATION TIME BUT APPEARED FUNCTIONAL, ORAL TRANSIT TIME(3 SECS), LARYNGEAL ELEVATION APPEARED SLOW AND ADEQUATE, NO OVERT S/S OF ASPRIATION. GIVEN PT HAS H/O OF COPD, STROKE AND ACUTE RESP FAILURE, PT HAS RISK FOR ASPIRATION. RECOMMENDATIONS: 1. FOR QUALITY OF LIFE, CONTINUE SOFT, EASY CHEW WITH THIN LIQUIDS 2. ASPIRATION PRECAUTIONS WITH SUPERVISION. 3. FULL MEAL OBSERVATION. 4. CONSIDER MODIFIED BARIUM SWALLOW STUDY IF NEEDED. D/W PT AND RNWALTER. POSTED ASPIRATION PRECAUTIONS SIGN.
--- NOTE | 2018-12-23 14:00 | NUR ---
NURSE NOTES: Pt resting in bed. will continue plan of care.
--- NOTE | 2018-12-23 15:51 | NUR ---
Social Work This Sw made an attempt to speak with the patient, currently in the ICU (patient is homeless and has history of substance abuse: meth and cocaine). Patient currently appears lethargic, confused and unable to converse at this time. Patient continues to remain full code, full treatment. Pending current progress; SW to follow for discharge planning needs (as well as substance abuse resources needed).
[2018-12-23] MEDS ORDERED: Tubing IV Secondary IV ONE (16:12)
[2018-12-23] MEDS ORDERED: NS 500ML ONE (16:12)
--- NOTE | 2018-12-23 16:22 | NUR ---
NURSE NOTES: Patient report received from LINDA Burgess. Awake and AOx3, sitting in bed and able to follow command.On nasal canula at 2LPM with no sign of acute distress.RAC/18G and LFA/20 G saline lock with no apparent s/s infiltration.Active MRSA nares and contact isolation precaution to be maintained at all the times.Good hand wash done before and after care.Awaiting room to tele for pt to be transfer.Kept clean and dry.Continue on close monitoring.
--- NOTE | 2018-12-23 16:36 | NUR ---
*-* INSURANCE *-* ALL CLINICALS AND REVIEWS HAVE BEEN FAXED TO: [employer]: [place] P- [phone] F- [phone]...........REVIEW/CLINICAL
[2018-12-23] MEDS: Lisinopril 10mg tab NG SCH (17:30)
--- NOTE | 2018-12-23 17:50 | Internal Med Progress Note ---
Subjective Physician Name Rambo Ardon Attending Physician Rambo Ardon MD Current Medications Medications (Trade) Dose Ordered Sig/Alisia Route PRN Reason Start Time Stop Time Status Last Admin Dose Admin Acetaminophen (Tylenol) 650 mg Q4H PRN ORAL Fever 12/19/18 13:30 01/18/19 13:29 Albuterol/ Ipratropium (Albuterol/ Ipratropium) 3 ml Q4H PRN HHN Shortness of Breath 12/19/18 13:30 12/24/18 13:29 Clonidine HCl (Catapres Tab) 0.1 mg Q4H PRN NG bp over 180 syst 12/21/18 16:19 01/20/19 16:18 Dextrose (Dextrose 50%) STAT PRN IV Hypoglycemia 12/19/18 13:30 01/18/19 13:29 Diltiazem HCl (Cardizem) 30 mg EVERY 8 HOURS NG 12/22/18 14:00 01/20/19 17:59 12/23/18 13:32 Haloperidol Lactate 5 mg/ Dextrose 56 ml @ 112 mls/hr Q1H PRN IVPB AGITATION 12/21/18 10:15 01/20/19 10:14 Heparin Sodium (Porcine) (Heparin 5000 units/ml) 5,000 units EVERY 12 HOURS SUBQ 12/19/18 21:00 01/18/19 20:59 12/23/18 09:46 Hydralazine HCl (Apresoline) 10 mg Q4H PRN IV bp over 160 syst 12/21/18 16:19 01/19/19 16:18 Lisinopril (Zestril) 10 mg BID NG 12/23/18 18:00 01/21/19 08:59 12/23/18 17:30 Morphine Sulfate (Morphine Sulfate) 4 mg Q4H PRN IVP For Pain 12/19/18 13:30 12/26/18 13:29 12/22/18 08:37 Nitroglycerin (Ntg) 0.4 mg Q5M PRN SL Prn Chest Pain 12/19/18 11:00 01/18/19 10:59 12/19/18 11:14 Pantoprazole (Protonix) 40 mg DAILY ORAL 12/24/18 09:00 01/23/19 08:59 Polyethylene Glycol (Miralax) 17 gm DAILYPRN PRN ORAL Constipation 12/19/18 13:30 01/18/19 13:29 Temazepam (Restoril) 15 mg HSPRN PRN ORAL Insomnia 12/19/18 13:30 12/26/18 13:29 Allergies: Coded Allergies: No Known Allergies (Unverified , 05/17/18) Subjective In ICU, awake, alert, responsive, extubated yesterday, no acute distress. Objective Last Vital Signs Date Time Temp Pulse Resp B/P (MAP) Pulse Ox O2 Delivery O2 Flow Rate FiO2 12/23/18 17:30 124/58 12/23/18 17:00 96 20 100 12/23/18 16:00 Nasal Cannula 2.0 Nasal Cannula 2.0 12/23/18 16:00 98.0 12/23/18 06:31 28 Laboratory Tests Test 12/23/18 08:20 White Blood Count 10.6 K/UL (4.8-10.8) Red Blood Count 5.72 M/UL (4.20-5.40) H Hemoglobin 15.0 G/DL (12.0-16.0) Hematocrit 47.2 % (37.0-47.0) H Mean Corpuscular Volume 83 FL (80-99) Mean Corpuscular Hemoglobin 26.3 PG (27.0-31.0) L Mean Corpuscular Hemoglobin Concent 31.9 G/DL (32.0-36.0) L Red Cell Distribution Width 15.8 % (11.6-14.8) H Platelet Count 463 K/UL (150-450) H Mean Platelet Volume 5.6 FL (6.5-10.1) L Neutrophils (%) (Auto) 80.4 % (45.0-75.0) H Lymphocytes (%) (Auto) 11.1 % (20.0-45.0) L Monocytes (%) (Auto) 6.4 % (1.0-10.0) Eosinophils (%) (Auto) 1.1 % (0.0-3.0) Basophils (%) (Auto) 0.9 % (0.0-2.0) Sodium Level 133 MMOL/L (136-145) L Potassium Level 3.8 MMOL/L (3.5-5.1) Chloride Level 99 MMOL/L (98-107) Carbon Dioxide Level 18 MMOL/L (21-32) L Anion Gap 16 mmol/L (5-15) H Blood Urea Nitrogen 13 mg/dL (7-18) Creatinine 1.0 MG/DL (0.55-1.30) Estimat Glomerular Filtration Rate > 60 mL/min (>60) Glucose Level 66 MG/DL (74-106) L Calcium Level 9.5 MG/DL (8.5-10.1) Phosphorus Level 4.1 MG/DL (2.5-4.9) Magnesium Level 1.9 MG/DL (1.8-2.4) Total Bilirubin 1.2 MG/DL (0.2-1.0) H Direct Bilirubin 0.2 MG/DL (0.0-0.3) Aspartate Amino Transf (AST/SGOT) 24 U/L (15-37) Alanine Aminotransferase (ALT/SGPT) 35 U/L (12-78) Alkaline Phosphatase 162 U/L (46-116) H Total Protein 7.8 G/DL (6.4-8.2) Albumin 2.7 G/DL (3.4-5.0) L Globulin 5.1 g/dL Albumin/Globulin Ratio 0.5 (1.0-2.7) L Intake and Output 12/22/18 12/23/18 19:00 07:00 Intake Total 60 ml Output Total 780 ml 525 ml Balance -780 ml -465 ml Intake Oral 0 ml Other 60 ml Output Urine Total 780 ml 525 ml Objective General: No acute distress, awake and alert HEENT: NCAT, sclera anicteric, PERRL, EOMI. Neck: Supple, no significant jugular venous distention, Lungs: Fair inspiratory effort, decreased air at the bases, clear to auscultation bilaterally, no Wheeze or Rales. Heart: Regular rate and rhythm, normal S1/S2, no murmurs/gallops Abdomen: soft, nontender, nondistended. Normoactive bowel sounds. / Rectal: Refused and deferred. Extremities: No Cyanosis , clubbing or edema. Neuro: A&O x 3, Able to move all extremities Skin: warm, no rashes or lesions Psych: Normal mood and affect Assessment/Plan Status Narrative (1) Acute respiratory failure s/p extubation (2) Hypertensive emergency (3) COPD (chronic obstructive pulmonary disease) (4) Severe left ventricular systolic dysfunction (5) Pulmonary hypertension, moderate to severe (6) Pulmonary edema (7) Cocaine abuse Plan: Consider transfer from ICU to monitored unit. PT mobility. CODE STATUS full code. DVT prophylaxis heparin subcu. Consider discharge home in 1 or 2 days. Rambo Ardon MD Dec 23, 2018 17:50
--- NOTE | 2018-12-23 18:02 | NUR ---
NURSE NOTES: Patient awake in bed and eating diner.Call light within easy reach.Will continue to monitor.Kept clean dry and comfortable
--- NOTE | 2018-12-23 19:20 | NUR ---
HAND-OFF: Report given to LINDA López.
--- NOTE | 2018-12-23 19:30 | NUR ---
NURSE NOTES: Received pt in no distress. Drowsy but arousable to name; verbally responsive; appropriate but slow. Denies pains, denies SOB. c/o hunger. Skin slightly warm to touch, temp 99 orally. NSR; O2 sats 97% on 2l/m via NC. HL on RAC and LAC intact. FC still patent; UOP 30ml/h clear vishal. Awaiting room availability as pt downgraded to tele; however, will continue to monitor. Plan of care explained; anticipated needs. Fall precautions in place. Bed locked and in low position and armed.
--- NOTE | 2018-12-23 21:30 | NUR ---
NURSE NOTES: Pt able to take in po without any difficulty. Pills crushed and mixed with applesauce.
--- NOTE | 2018-12-23 22:44 | Neurology Progress Note ---
Interim History Interim History ROS Limited/Unobtainable: Yes Complaints: AMS Events: Extubated and out of ICU Review of Systems All Systems: reviewed and negative except above Objective Physical Exam Last Vital Signs Date Time Temp Pulse Resp B/P (MAP) Pulse Ox O2 Delivery O2 Flow Rate FiO2 12/23/18 22:02 98 22 151/73 (99) 98 12/23/18 20:00 99.0 12/23/18 20:00 Nasal Cannula 2.0 Nasal Cannula 2.0 12/23/18 18:42 28 Laboratory Tests Test 12/23/18 08:20 White Blood Count 10.6 K/UL (4.8-10.8) Red Blood Count 5.72 M/UL (4.20-5.40) H Hemoglobin 15.0 G/DL (12.0-16.0) Hematocrit 47.2 % (37.0-47.0) H Mean Corpuscular Volume 83 FL (80-99) Mean Corpuscular Hemoglobin 26.3 PG (27.0-31.0) L Mean Corpuscular Hemoglobin Concent 31.9 G/DL (32.0-36.0) L Red Cell Distribution Width 15.8 % (11.6-14.8) H Platelet Count 463 K/UL (150-450) H Mean Platelet Volume 5.6 FL (6.5-10.1) L Neutrophils (%) (Auto) 80.4 % (45.0-75.0) H Lymphocytes (%) (Auto) 11.1 % (20.0-45.0) L Monocytes (%) (Auto) 6.4 % (1.0-10.0) Eosinophils (%) (Auto) 1.1 % (0.0-3.0) Basophils (%) (Auto) 0.9 % (0.0-2.0) Sodium Level 133 MMOL/L (136-145) L Potassium Level 3.8 MMOL/L (3.5-5.1) Chloride Level 99 MMOL/L (98-107) Carbon Dioxide Level 18 MMOL/L (21-32) L Anion Gap 16 mmol/L (5-15) H Blood Urea Nitrogen 13 mg/dL (7-18) Creatinine 1.0 MG/DL (0.55-1.30) Estimat Glomerular Filtration Rate > 60 mL/min (>60) Glucose Level 66 MG/DL (74-106) L Calcium Level 9.5 MG/DL (8.5-10.1) Phosphorus Level 4.1 MG/DL (2.5-4.9) Magnesium Level 1.9 MG/DL (1.8-2.4) Total Bilirubin 1.2 MG/DL (0.2-1.0) H Direct Bilirubin 0.2 MG/DL (0.0-0.3) Aspartate Amino Transf (AST/SGOT) 24 U/L (15-37) Alanine Aminotransferase (ALT/SGPT) 35 U/L (12-78) Alkaline Phosphatase 162 U/L (46-116) H Total Protein 7.8 G/DL (6.4-8.2) Albumin 2.7 G/DL (3.4-5.0) L Globulin 5.1 g/dL Albumin/Globulin Ratio 0.5 (1.0-2.7) L General: well developed, well nourished Head: normocophalic Neck: no rigidity EENT: benign Neurologic Exam Mental Status: awake, alert Speech: other - INtubated Language: no aphasia Cranial Nerve II: fundus normal, visual georges, no papilledema Cranial Nerves III, IV, : EOMI, pupils - Left pupil > Right Pupil - both reactive Cranial Nerve V: normal facial sensations, temporales function normal Cranial Nerve VII: no facial asymmetry Cranial Nerve VIII: normal hearing Cranial Nerve XI: SCM symmetric Cranial Nerve XII: tongue midline, no tongue atrophy/fasciculations Motor System: normal muscle tone, no involuntary movement, no muscle wasting Sensory: normal pinprick, normal light touch Deep Tendon Reflexes: 1+ bicep (L), 1+ tricep (L), 1+ brachioradialis (L), 1+ knee (L), 1+ ankle (L); 2+ bicep (R), 2+ tricep (R), 2+ brachioradialis (R), 2+ knee (R), 2+ ankle (R) Reflexes: flexor plantar (L), flexor plantar (R); extensor plantar (L), extensor plantar (R) Objective Just as alert today- able to follow both midline and non midline commands. Impression/Recommendations Problems: (1) Unequal pupils Assessment & Plan: Monitor, may be drug/ metabolic toxicity vs Central cause ( CVA/Hemorrhage) Resolved (2) Acute respiratory failure Assessment & Plan: Wean vent as able (3) Cocaine abuse Assessment & Plan: [facility] Protocol - Consider Assessment prior to extubation (4) Hypertensive emergency Assessment & Plan: Maintain BP< 140-160 (5) Altered mental state Assessment & Plan: Acute Encephalopathy, Toxic vs Metabolic Secondary to Cocaine Use / Resp Failure/ CHF Exacerbation Follow up PT/OT/ ST Psych for Drug Abuse/ Social Work Status: stable Diagnostic Impression CT 12/20/18 with Chronic and age-related changes, including old bilateral basal ganglia lacunar infarct Negative for acute intracranial bleed or mass effect Deficits resolving each day. Question mild cognitive impairment at baseline - F/U with Psych/ Loop Puller as outpatient Juliane Chaidez N.P. Dec 23, 2018 22:44
--- NOTE | 2018-12-23 22:50 | NUR ---
NURSE NOTES: Received report from LINDA Morgan. Patient awake sitting on the bed, patient oriented to name, reality orientation provided. On 2L oxygen via N/C satting 100%.Denies any pain pain or discomfort. Temp 99.6 oral cooling measure provided. SR on the night monitor HR 96. Instructed patient to use call light for assistance. Bed locked and in low position. Bed alarm on. Patient with order to transfer to TELEMETRY. Contact isolation maintained and observed. Will continue plan of care.
--- NOTE | 2018-12-23 22:55 | NUR ---
HAND-OFF: Report given to Agustin Haley RN.
[2018-12-24] VITALS (18 sets, daily range): BP systolic 121–150; BP diastolic 54–86
--- NOTE | 2018-12-24 00:30 | NUR ---
NURSE NOTES: Seen and examined by Juliane Truong MENTAL TESTER. patient in bed awake, eating chocolate pudding. HOB elevated. No coughing. Bed locked and in low positioned.bed alarm on. frequent visual checks continued. Instructed patient to use call light for assistance.
--- NOTE | 2018-12-24 02:30 | NUR ---
NURSE NOTES: Patient in bed sleeping comfortably, no s/s of acute distress noted. On 2L oxygen via N/C satting 100%. HOB elevated. Skin warm and dry touch.Frequent visual checks continue.
--- NOTE | 2018-12-24 04:30 | NUR ---
NURSE NOTES: Patient in bed sleeping comfortably, no s/s of acute distress noted. On 2L oxygen via N/C satting 100%. HOB elevated. Skin warm and dry touch.Frequent visual checks continue. Will continue plan of care.
[2018-12-24] MEDS: dilTIAZem HCl 30mg tab NG SCH ×2 (05:41→13:18)
--- NOTE | 2018-12-24 06:00 | NUR ---
NURSE NOTES: Bed bath given. oral care done. no complain of pain or discomfort. no s/s of acute distress noted. Patient awake,alert oriented X2, watching TV. Call light within easy reach. IV line intact, no s/s of infiltration. Will continue to monitor Patient.
--- NOTE | 2018-12-24 07:30 | NUR ---
HAND-OFF: Report given to Nisha MCKEON.
--- NOTE | 2018-12-24 07:31 | NUR ---
NURSE NOTES: Received change of shift report from Mlai MCKEON. Pt is awake, alert, oriented x2-3 (name/place/purpose). On 2L of oxygen via nasal cannula with O2sat 100%, no respiratory distress currently. Lung sounds are diminished, with bilateral expiratory wheezes. hall monitor displays NSR. Bounding pulse palpated on bilateral radial sites. No edema present on extremities. Skin is intact, with dryness notes on lower extremities/feet. Hypoactive bowel sounds present in all four quadrants. Pt has breakfast tray, soft/easy chew in front of her, able to swallow with no s/s of aspiration, no cough present. Knight catheter in place, draining mildly cloudy/dark yellow urine. Peripheral IV access present on right AC #18G and left FA #20G, both saline locks, patent/intact. Bilateral SCDs in place. Bed is locked with three side rails up and call light within easy reach. Will continue to monitor pt and follow plan of care per MD orders and protocol.
[2018-12-24] MEDS: Lisinopril 10mg tab NG SCH (09:27)
[2018-12-24] MEDS: Heparin 5000 units/ml inj SUBQ SCH ×2 (09:30→21:12)
--- NOTE | 2018-12-24 09:30 | NUR ---
NURSE NOTES: Pt is asleep in bed, with O2sat 100% while on 2L of oxygen via nasal cannula. Pt was repositioned in bed. 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
--- NOTE | 2018-12-24 11:00 | NUR ---
NURSE NOTES: Pt was seen by Dr Noe. Orders in place for labs and chest xray for tomorrow.
--- NOTE | 2018-12-24 11:55 | NUR ---
NURSE NOTES: Dr. Wright came to visit patient- updated with pt's condition - aware patient does not have any blood test done today and also aware that patient is for transfer to Tele unit today
--- NOTE | 2018-12-24 12:30 | NUR ---
NURSE NOTES: Pt remains on 2L of oxygen via nasal cannula with O2sat 96-100%, with no respiratory distress. 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 Lunch tray in front of pt, soft-easy chew consistency, pt able to swallow without difficulty, no coughing present. Knight catheter is draining mildly cloudy/dark yellow urine, hourly output 20-40ml. Peripheral IV access present on right AC saline locks, patent/intact. Bilateral SCDs in place. Bed is locked with three side rails up and call light within easy reach. Order in place to transfer pt to [facility], awaiting for bed-availability. Pt is currently stable.
--- NOTE | 2018-12-24 12:42 | Nephrology Progress Note ---
Assessment/Plan Problem List: (1) Acute respiratory failure (2) Pulmonary hypertension, moderate to severe (3) Severe left ventricular systolic dysfunction (4) Cocaine abuse (5) Hypertensive emergency (6) Altered mental state Assessment Acute renal failure- multi factorial due to one or more of following: (1) Acute respiratory failure on vent (2) Hypertensive emergency (3) COPD (chronic obstructive pulmonary disease) (4) Severe left ventricular systolic dysfunction, Low ej fx (5) Pulmonary hypertension, moderate to severe (6) Pulmonary edema (7) Cocaine abuse Plan extubated last night 12/22 St eval Adjust BP meds Avoid Nephrotoxics Pulmonary support Aim to reduce afterload vasotec and digoxin per orders Subjective ROS Limited/Unobtainable: No Constitutional: Reports: weakness Objective Objective Last 24 Hour Vital Signs Date Time Temp Pulse Resp B/P (MAP) Pulse Ox O2 Delivery O2 Flow Rate FiO2 12/24/18 12:00 Nasal Cannula 2.0 Nasal Cannula 2.0 12/24/18 12:00 98.1 83 24 130/65 (86) 100 12/24/18 11:00 87 23 131/56 (81) 100 12/24/18 10:00 75 21 123/62 (82) 100 12/24/18 09:27 121/54 12/24/18 09:21 82 23 121/54 (76) 99 12/24/18 09:00 89 24 122/56 (78) 100 12/24/18 08:00 97.7 93 23 149/86 (107) 100 12/24/18 08:00 68 12/24/18 08:00 Nasal Cannula 2.0 Nasal Cannula 2.0 12/24/18 07:00 72 20 123/62 (82) 100 12/24/18 06:00 98.4 87 22 134/72 (92) 100 12/24/18 06:00 87 22 134/72 (92) 100 12/24/18 05:41 78 129/69 12/24/18 05:00 78 21 129/69 (89) 100 12/24/18 04:00 88 12/24/18 04:00 Nasal Cannula 2.0 Nasal Cannula 2.0 12/24/18 04:00 99.0 84 22 128/64 (85) 99 12/24/18 03:00 86 24 132/69 (90) 100 12/24/18 02:00 86 25 136/73 (94) 100 12/24/18 01:00 93 28 121/57 (78) 99 12/24/18 00:00 Nasal Cannula 2.0 Nasal Cannula 2.0 12/24/18 00:00 102 12/24/18 00:00 99.6 102 29 150/78 (102) 97 12/23/18 23:00 95 29 139/71 (93) 100 12/23/18 22:02 98 22 151/73 (99) 98 12/23/18 21:42 95 122/58 12/23/18 21:00 96 28 122/58 (79) 96 12/23/18 20:00 108 12/23/18 20:00 99.0 108 28 162/81 (108) 98 12/23/18 20:00 Nasal Cannula 2.0 Nasal Cannula 2.0 12/23/18 19:00 103 20 135/72 (93) 95 12/23/18 18:42 79 22 Nasal Cannula 2.0 28 12/23/18 18:42 100 Nasal Cannula 2.0 28 12/23/18 18:42 Nasal Cannula 2.0 28 12/23/18 18:00 108 20 140/65 (90) 98 12/23/18 17:30 124/58 12/23/18 17:00 96 20 124/56 (78) 100 12/23/18 16:00 81 12/23/18 16:00 Nasal Cannula 2.0 Nasal Cannula 2.0 12/23/18 16:00 98.0 81 22 135/69 (91) 100 12/23/18 15:00 80 20 140/66 (90) 100 12/23/18 14:00 83 20 121/70 (87) 100 12/23/18 13:32 80 140/66 12/23/18 13:00 80 20 146/66 (92) 100 Intake and Output 12/23/18 12/24/18 19:00 07:00 Intake Total 420 ml 300 ml Output Total 640 ml 525 ml Balance -220 ml -225 ml Intake Oral 420 ml 300 ml Output Urine Total 640 ml 525 ml Height (Feet): 5 Height (Inches): 6.00 Weight (Pounds): 107 General Appearance: no apparent distress Cardiovascular: normal rate Respiratory/Chest: decreased breath sounds Abdomen: soft Objective no change Fouladian,Simeon MD Dec 24, 2018 12:42
[2018-12-24] MEDS ORDERED: Digoxin 0.5mg/2ml Inj IVP SCH (12:45)
--- NOTE | 2018-12-24 14:00 | NUR ---
NURSE NOTES: Pt was cleaned and repositioned, and ready to be transferred to Tele.
--- NOTE | 2018-12-24 14:15 | NUR ---
TRANSFER TO FLOOR: Patient transferred to Tele Rm [id number] from ICU BedG via hospital bed while on [id number]. Hand off report given to Brandon. Pt was transferred in stable condition. Pt's belonging's list checked and signed with the receiving nurse in front of the pt. Skin is intact. Endorsed plan of care.
[2018-12-24] MEDS ORDERED: Nitroglycerin Subl 0.4mg tab SL PRN (14:45)
--- NOTE | 2018-12-24 14:51 | NUR ---
NURSE NOTES: pt awake alert, no distress.no sob 98%on ra.call light within reach. bed in lowest position, locked
[2018-12-24] MEDS ORDERED: Morphine Sulfate 4mg/ml Inj (IV USE ONLY) IVP PRN (15:00)
[2018-12-24] MEDS ORDERED: Miralax 17gm pkt ORAL PRN (15:00)
[2018-12-24] MEDS ORDERED: Haloperidol Lactate 5 MG in D5W 55 ML IVPB PRN (15:15)
--- NOTE | 2018-12-24 16:05 | Internal Med Progress Note ---
Subjective Physician Name Rambo Ardon Attending Physician Rambo Ardon MD Current Medications Medications (Trade) Dose Ordered Sig/Alisia Route PRN Reason Start Time Stop Time Status Last Admin Dose Admin Acetaminophen (Tylenol) 650 mg Q4H PRN ORAL Fever 12/24/18 15:00 01/18/19 14:59 Clonidine HCl (Catapres Tab) 0.1 mg Q4H PRN NG bp over 180 syst 12/24/18 15:00 01/20/19 14:59 Dextrose (Dextrose 50%) 25 ml Q30M PRN IV Hypoglycemia 12/24/18 15:00 01/23/19 14:59 Dextrose (Dextrose 50%) 50 ml Q30M PRN IV Hypoglycemia 12/24/18 15:15 01/23/19 15:14 Digoxin (Lanoxin) 0.25 mg DAILY NG 12/25/18 09:00 01/24/19 08:59 Diltiazem HCl (Cardizem) 30 mg EVERY 8 HOURS NG 12/24/18 22:00 01/20/19 17:59 Haloperidol Lactate 5 mg/ Dextrose 56 ml @ 112 mls/hr Q1H PRN IVPB AGITATION 12/24/18 15:15 01/20/19 10:14 Heparin Sodium (Porcine) (Heparin 5000 units/ml) 5,000 units EVERY 12 HOURS SUBQ 12/24/18 21:00 01/18/19 20:59 Hydralazine HCl (Apresoline) 10 mg Q4H PRN IV bp over 160 syst 12/24/18 15:00 01/19/19 14:59 Lisinopril (Prinivil) 20 mg BID NG 12/24/18 18:00 01/21/19 08:59 Morphine Sulfate (Morphine Sulfate) 4 mg Q4H PRN IVP For Pain 12/24/18 15:00 12/26/18 14:59 Nitroglycerin (Ntg) 0.4 mg Q5M PRN SL Prn Chest Pain 12/24/18 14:45 01/18/19 10:59 Pantoprazole (Protonix) 40 mg DAILY ORAL 12/25/18 09:00 01/23/19 08:59 Polyethylene Glycol (Miralax) 17 gm DAILYPRN PRN ORAL Constipation 12/24/18 15:00 01/23/19 14:59 Temazepam (Restoril) 15 mg HSPRN PRN ORAL Insomnia 12/24/18 15:00 12/31/18 14:59 Allergies: Coded Allergies: No Known Allergies (Unverified , 05/17/18) Subjective Transfer out ICU to Telemetry, awake, alert, responsive, no acute distress. Objective Last Vital Signs Date Time Temp Pulse Resp B/P (MAP) Pulse Ox O2 Delivery O2 Flow Rate FiO2 12/24/18 15: 90 12/24/18 14:50 99.1 18 143/75 (97) 98 12/24/18 12:00 Nasal Cannula 2.0 Nasal Cannula 2.0 12/23/18 18:42 28 Intake and Output 12/23/18 12/24/18 19:00 07:00 Intake Total 420 ml 300 ml Output Total 640 ml 525 ml Balance -220 ml -225 ml Intake Oral 420 ml 300 ml Output Urine Total 640 ml 525 ml Objective General: No acute distress, awake and alert HEENT: NCAT, sclera anicteric, PERRL, EOMI. Neck: Supple, no significant jugular venous distention, Lungs: Fair inspiratory effort, decreased air at the bases, clear to auscultation bilaterally, no Wheeze or Rales. Heart: Regular rate and rhythm, normal S1/S2, no murmurs/gallops Abdomen: soft, nontender, nondistended. Normoactive bowel sounds. / Rectal: Refused and deferred. Extremities: No Cyanosis , clubbing or edema. Neuro: A&O x 3, Able to move all extremities Skin: warm, no rashes or lesions Psych: Normal mood and affect Assessment/Plan Status Narrative (1) Acute respiratory failure s/p extubation (2) Hypertensive emergency (3) COPD (chronic obstructive pulmonary disease) (4) Severe left ventricular systolic dysfunction (5) Pulmonary hypertension, moderate to severe (6) Pulmonary edema (7) Cocaine abuse Plan: OOB to Chair. PT mobility. CODE STATUS full code. DVT prophylaxis heparin subcu. Consider discharge home in 1 or 2 days. Rambo Ardon MD Dec 24, 2018 16:05
--- NOTE | 2018-12-24 17:01 | Pulmonology Progress Note ---
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 Discussed with: nurses, consultants Subjective ROS Limited/Unobtainable: No Allergies: Coded Allergies: No Known Allergies (Unverified , 05/17/18) Objective Last 24 Hour Vital Signs Date Time Temp Pulse Resp B/P (MAP) Pulse Ox O2 Delivery O2 Flow Rate FiO2 12/24/18 16:00 Room Air Room Air 12/24/18 15:19 90 12/24/18 14:50 99.1 96 18 143/75 (97) 98 12/24/18 14:00 90 141/70 (93) 100 12/24/18 13:18 87 12/24/18 13:18 87 147/73 12/24/18 13:00 95 21 147/73 (97) 99 12/24/18 12:00 Nasal Cannula 2.0 Nasal Cannula 2.0 12/24/18 12:00 82 12/24/18 12:00 98.1 83 24 130/65 (86) 100 12/24/18 11:00 87 23 131/56 (81) 100 12/24/18 10:00 75 21 123/62 (82) 100 12/24/18 09:27 121/54 12/24/18 09:21 82 23 121/54 (76) 99 12/24/18 09:00 89 24 122/56 (78) 100 12/24/18 08:00 97.7 93 23 149/86 (107) 100 12/24/18 08:00 68 12/24/18 08:00 Nasal Cannula 2.0 Nasal Cannula 2.0 12/24/18 07:00 72 20 123/62 (82) 100 12/24/18 06:00 98.4 87 22 134/72 (92) 100 12/24/18 06:00 87 22 134/72 (92) 100 4/13/19 05:41 78 129/69 12/24/18 05:00 78 21 129/69 (89) 100 12/24/18 04:00 88 12/24/18 04:00 Nasal Cannula 2.0 Nasal Cannula 2.0 12/24/18 04:00 99.0 84 22 128/64 (85) 99 12/24/18 03:00 86 24 132/69 (90) 100 12/24/18 02:00 86 25 136/73 (94) 100 12/24/18 01:00 93 28 121/57 (78) 99 12/24/18 00:00 Nasal Cannula 2.0 Nasal Cannula 2.0 12/24/18 00:00 102 12/24/18 00:00 99.6 102 29 150/78 (102) 97 12/23/18 23:00 95 29 139/71 (93) 100 12/23/18 22:02 98 22 151/73 (99) 98 12/23/18 21:42 95 122/58 12/23/18 21:00 96 28 122/58 (79) 96 12/23/18 20:00 108 12/23/18 20:00 99.0 108 28 162/81 (108) 98 12/23/18 20:00 Nasal Cannula 2.0 Nasal Cannula 2.0 12/23/18 19:00 103 20 135/72 (93) 95 12/23/18 18:42 79 22 Nasal Cannula 2.0 28 12/23/18 18:42 100 Nasal Cannula 2.0 28 12/23/18 18:42 Nasal Cannula 2.0 28 12/23/18 18:00 108 20 140/65 (90) 98 12/23/18 17:30 124/58 Intake and Output 12/23/18 12/24/18 19:00 07:00 Intake Total 420 ml 300 ml Output Total 640 ml 525 ml Balance -220 ml -225 ml Intake Oral 420 ml 300 ml Output Urine Total 640 ml 525 ml General Appearance: WD/WN HEENT: normocephalic, anicteric Respiratory/Chest: chest wall non-tender, normal breath sounds Breasts: no masses Cardiovascular: normal peripheral pulses Abdomen: normal bowel sounds, non distended Skin: no rash Current Medications Medications (Trade) Dose Ordered Sig/Alisia Route PRN Reason Start Time Stop Time Status Last Admin Dose Admin Acetaminophen (Tylenol) 650 mg Q4H PRN ORAL Fever 12/24/18 15:00 01/18/19 14:59 Clonidine HCl (Catapres Tab) 0.1 mg Q4H PRN NG bp over 180 syst 12/24/18 15:00 01/20/19 14:59 Dextrose (Dextrose 50%) 25 ml Q30M PRN IV Hypoglycemia 12/24/18 15:00 01/23/19 14:59 Dextrose (Dextrose 50%) 50 ml Q30M PRN IV Hypoglycemia 12/24/18 15:15 01/23/19 15:14 Digoxin (Lanoxin) 0.25 mg DAILY NG 12/25/18 09:00 01/24/19 08:59 Diltiazem HCl (Cardizem) 30 mg EVERY 8 HOURS NG 12/24/18 22:00 01/20/19 17:59 Haloperidol Lactate 5 mg/ Dextrose 56 ml @ 112 mls/hr Q1H PRN IVPB AGITATION 12/24/18 15:15 01/20/19 10:14 Heparin Sodium (Porcine) (Heparin 5000 units/ml) 5,000 units EVERY 12 HOURS SUBQ 12/24/18 21:00 01/18/19 20:59 Hydralazine HCl (Apresoline) 10 mg Q4H PRN IV bp over 160 syst 12/24/18 15:00 01/19/19 14:59 Lisinopril (Prinivil) 20 mg BID NG 12/24/18 18:00 01/21/19 08:59 Morphine Sulfate (Morphine Sulfate) 4 mg Q4H PRN IVP For Pain 12/24/18 15:00 12/26/18 14:59 Nitroglycerin (Ntg) 0.4 mg Q5M PRN SL Prn Chest Pain 12/24/18 14:45 01/18/19 10:59 Pantoprazole (Protonix) 40 mg DAILY ORAL 12/25/18 09:00 01/23/19 08:59 Polyethylene Glycol (Miralax) 17 gm DAILYPRN PRN ORAL Constipation 12/24/18 15:00 01/23/19 14:59 Temazepam (Restoril) 15 mg HSPRN PRN ORAL Insomnia 12/24/18 15:00 12/31/18 14:59 Arsalan Noe MD Dec 24, 2018 17:01
[2018-12-24] MEDS: Lisinopril 20mg tab NG SCH (17:48)
[2018-12-24] MEDS ORDERED: Lisinopril 20mg tab NG SCH (18:00)
--- NOTE | 2018-12-24 19:26 | NUR ---
HAND-OFF: Report given to SHIVAM MCKEON.
--- NOTE | 2018-12-24 19:27 | NUR ---
NURSE NOTES: Got report from Brandon MCKEON. Pt in stable condition. Denies any pain. No s/s of distress or discomfort noted. Pt resting in bed comfortably. Bed in low and locked position, call light within reach, bedside table within reach. Continue to monitor.
[2018-12-24] MEDS: dilTIAZem HCl 30mg tab ORAL SCH (21:40)
[2018-12-24] MEDS ORDERED: dilTIAZem HCl 30mg tab NG SCH (22:00)
[2018-12-25] VITALS: BP 153/82
[2018-12-25 04:20] VITALS: BP 160/90
[2018-12-25] MEDS: dilTIAZem HCl 30mg tab ORAL SCH (06:17)
[2018-12-25 06:55] LABS: BASOPHILS % (AUTO) 1.8 % (0.0-2.0); EOSINOPHILS % (AUTO) 1.7 % (0.0-3.0); HEMATOCRIT 42.9 % (37.0-47.0); HEMOGLOBIN 13.7 G/DL (12.0-16.0); LYMPHOCYTES % (AUTO) 10.4 % (20.0-45.0); MEAN CORPUSCULAR VOLUME 82 FL (80-99); MONOCYTES % (AUTO) 9.4 % (1.0-10.0); NEUTROPHILS % (AUTO) 76.7 % (45.0-75.0); PLATELET COUNT 493 K/UL (150-450); RED BLOOD COUNT 5.26 M/UL (4.20-5.40); RED CELL DISTRIBUTION WIDTH 15.6 % (11.6-14.8); WHITE BLOOD COUNT 10.5 K/UL (4.8-10.8)
[2018-12-25 07:09] LABS: ALANINE AMINOTRANSFERASE 26 U/L (12-78); ALBUMIN 2.1 G/DL (3.4-5.0); ALBUMIN/GLOBULIN RATIO 0.4 (1.0-2.7); ALKALINE PHOSPHATASE 126 U/L (46-116); ANION GAP 9 mmol/L (5-15); ASPARTATE AMINO TRANSFERASE 14 U/L (15-37); BILIRUBIN,TOTAL 0.5 MG/DL (0.2-1.0); BLOOD UREA NITROGEN 12 mg/dL (7-18); CALCIUM 9.5 MG/DL (8.5-10.1); CARBON DIOXIDE 26 MMOL/L (21-32); CHLORIDE 99 MMOL/L (98-107); CREATININE 0.8 MG/DL (0.55-1.30); SODIUM 133 MMOL/L (136-145)
--- NOTE | 2018-12-25 07:15 | NUR ---
HAND-OFF: Report given to Brandon MCKEON. Endorsed plan of care.
[2018-12-25 07:59] VITALS: BP 130/80
--- NOTE | 2018-12-25 08:03 | NUR ---
NURSE NOTES: pt awake alert, no distress. bed in lowest position, locked. call light within reach. will monitor.
[2018-12-25 08:20] VITALS: BP 130/80
[2018-12-25] MEDS: Lisinopril 20mg tab NG SCH (08:20)
[2018-12-25] MEDS: Heparin 5000 units/ml inj SUBQ SCH (08:23)
--- NOTE | 2018-12-25 09:02 | Diagnostic Imaging Report ---
EXAM: XR Chest, 1 View CLINICAL HISTORY: DYSPNEA TECHNIQUE: Frontal view of the chest. COMPARISON: Chest x-ray dated 12/22/18 FINDINGS: Lungs: Unremarkable. The lungs appear clear. No focal consolidation. Pleural space: Unremarkable. The costophrenic angles are sharp. No visible pneumothorax. Heart: Cardiac silhouette appears borderline enlarged. Mediastinum: Unremarkable. Bones/joints: Unremarkable. Vasculature: Atherosclerotic calcifications within the aortic arch. Tubes, lines and devices: Telemetry leads overlie the thorax. Other findings: Interval extubation. IMPRESSION: Interval extubation. Otherwise no significant change compared to the prior chest x-ray.
--- NOTE | 2018-12-25 11:14 | Nephrology Progress Note ---
Assessment/Plan Problem List: (1) Acute respiratory failure (2) Pulmonary hypertension, moderate to severe (3) Severe left ventricular systolic dysfunction (4) Cocaine abuse (5) Hypertensive emergency (6) Altered mental state Assessment Acute renal failure- multi factorial due to one or more of following: (1) Acute respiratory failure on vent (2) Hypertensive emergency (3) COPD (chronic obstructive pulmonary disease) (4) Severe left ventricular systolic dysfunction, Low ej fx (5) Pulmonary hypertension, moderate to severe (6) Pulmonary edema (7) Cocaine abuse Plan extubated 12/22 Adjust BP meds Avoid Nephrotoxics Pulmonary support Aim to reduce afterload vasotec and digoxin per orders Subjective ROS Limited/Unobtainable: No Constitutional: Reports: malaise Objective Objective Last 24 Hour Vital Signs Date Time Temp Pulse Resp B/P (MAP) Pulse Ox O2 Delivery O2 Flow Rate FiO2 12/25/18 08:20 130/80 12/25/18 08:20 88 12/25/18 07:59 98.9 88 16 130/80 (97) 95 12/25/18 07:50 89 12/25/18 06:17 81 160/90 12/25/18 04:20 98.9 84 16 160/90 (113) 95 12/25/18 04:20 81 12/25/18 00:18 Room Air Room Air 12/25/18 00:07 94 12/25/18 00:00 99.0 92 20 153/82 (105) 95 12/24/18 21:40 97 154/89 12/24/18 20:32 82 20 Nasal Cannula 2.0 28 12/24/18 20:32 99 Nasal Cannula 2.0 28 12/24/18 20:32 Nasal Cannula 2.0 28 12/24/18 20:00 97.2 97 18 150/85 (106) 95 12/24/18 20:00 Room Air Room Air 12/24/18 20:00 90 12/24/18 17:48 140/68 12/24/18 16:00 Room Air Room Air 12/24/18 15:19 90 12/24/18 14:50 99.1 96 18 143/75 (97) 98 12/24/18 14:00 90 141/70 (93) 100 12/24/18 13:18 87 12/24/18 13:18 87 147/73 12/24/18 13:00 95 21 147/73 (97) 99 12/24/18 12:00 Nasal Cannula 2.0 Nasal Cannula 2.0 12/24/18 12:00 82 12/24/18 12:00 98.1 83 24 130/65 (86) 100 Intake and Output 12/24/18 12/25/18 18:59 06:59 Intake Total 340 ml Output Total 640 ml Balance -300 ml Intake Oral 340 ml Output Urine Total 640 ml Laboratory Tests 12/25/18 06:24: White Blood Count 10.5, Red Blood Count 5.26, Hemoglobin 13.7, Hematocrit 42.9, Mean Corpuscular Volume 82, Mean Corpuscular Hemoglobin 26.0L, Mean Corpuscular Hemoglobin Concent 31.9L, Red Cell Distribution Width 15.6H, Platelet Count 493H , Mean Platelet Volume 6.5, Neutrophils (%) (Auto) 76.7H, Lymphocytes (%) (Auto ) 10.4L, Monocytes (%) (Auto) 9.4, Eosinophils (%) (Auto) 1.7, Basophils (%) ( Auto) 1.8, Sodium Level 133L, Potassium Level 4.0, Chloride Level 99, Carbon Dioxide Level 26, Anion Gap 9, Blood Urea Nitrogen 12, Creatinine 0.8, Estimat Glomerular Filtration Rate > 60, Glucose Level 124H, Calcium Level 9.5, Total Bilirubin 0.5, Aspartate Amino Transf (AST/SGOT) 14L, Alanine Aminotransferase ( ALT/SGPT) 26, Alkaline Phosphatase 126H, Pro-B-Type Natriuretic Peptide 1085H, Total Protein 7.1, Albumin 2.1L, Globulin 5.0, Albumin/Globulin Ratio 0.4L Height (Feet): 5 Height (Inches): 6.00 Weight (Pounds): 108 General Appearance: no apparent distress Objective no change Simeon Wright MD Dec 25, 2018 11:14
--- NOTE | 2018-12-25 11:31 | NUR ---
NURSE NOTES: upon md rounds, dr Ardon plan to dc pt, explained to md that social human services assistants working on placement, but per md pt mentioned her grandmother, rn also had joseph dc'd and will monitor when pt voids, per Dr Ardon notify him for voiding before we can put dc order in.
[2018-12-25 11:49] LABS: PHOSPHORUS 3.2 MG/DL (2.5-4.9)
--- NOTE | 2018-12-25 12:33 | NUR ---
NURSE NOTES: pt s/p joseph removal, pt voided x 1. notified , per Dr Ardon, dc home w home meds. pt aware . per pt , she will go to grandmother's house [id number] , dr Ardon aware
--- NOTE | 2018-12-25 12:48 | NUR ---
NURSE NOTES: ATTEMPTED TO CALL CONTACT [phone] BUT NO VOICEMAIL , RN SPOKE WITH KG Sotelo, OPTICAL ADVISOR, PER CM, IF PT HAS NO ACCESS TO THE HOME NOT A SAFE DISCHARGE PER , HAVE THE DEER FARM WORKER TALK TO THE PT. RN NICOLASA CLARK TO NOTIFY Addendum: 12/25/18 at 1322 by MAICO KAT RN NURSE NOTES: PT WANTED TO GO HOME STATING "IM NOT STAYING OVERNIGHT , MY GRANDMA IS THERE AND SHE DOESNT LIKE TO COMPUTER REPAIRER PHONE , AND MY SON IS THERE" PT SIGNED THE CONSENT FOR PATIENT DESTINATION CONFIRMING SHE IS GOING TO [facility]. PT LEFT IN STABLE CONDITION, WITH ALL BELONGINGS, IV AND ARM BAND REMOVED.
--- NOTE | 2018-12-25 15:42 | Neurology Progress Note ---
Interim History Interim History ROS Limited/Unobtainable: Yes Complaints: AMS Events: Extubated and out of ICU Interim History Still with some residual left weakness but OOB to chair, will require more PT/OT Review of Systems All Systems: reviewed and negative except above Objective Physical Exam Last Vital Signs Date Time Temp Pulse Resp B/P (MAP) Pulse Ox O2 Delivery O2 Flow Rate FiO2 12/25/18 08:20 130/80 12/25/18 08:20 88 12/25/18 07:59 98.9 16 95 12/25/18 00:18 Room Air Room Air 12/24/18 20:32 2.0 28 Laboratory Tests Test 12/25/18 06:05 12/25/18 06:24 Uric Acid 2.8 MG/DL (2.6-7.2) Phosphorus Level 3.2 MG/DL (2.5-4.9) Magnesium Level 1.7 MG/DL (1.8-2.4) L White Blood Count 10.5 K/UL (4.8-10.8) Red Blood Count 5.26 M/UL (4.20-5.40) Hemoglobin 13.7 G/DL (12.0-16.0) Hematocrit 42.9 % (37.0-47.0) Mean Corpuscular Volume 82 FL (80-99) Mean Corpuscular Hemoglobin 26.0 PG (27.0-31.0) L Mean Corpuscular Hemoglobin Concent 31.9 G/DL (32.0-36.0) L Red Cell Distribution Width 15.6 % (11.6-14.8) H Platelet Count 493 K/UL (150-450) H Mean Platelet Volume 6.5 FL (6.5-10.1) Neutrophils (%) (Auto) 76.7 % (45.0-75.0) H Lymphocytes (%) (Auto) 10.4 % (20.0-45.0) L Monocytes (%) (Auto) 9.4 % (1.0-10.0) Eosinophils (%) (Auto) 1.7 % (0.0-3.0) Basophils (%) (Auto) 1.8 % (0.0-2.0) Sodium Level 133 MMOL/L (136-145) L Potassium Level 4.0 MMOL/L (3.5-5.1) Chloride Level 99 MMOL/L (98-107) Carbon Dioxide Level 26 MMOL/L (21-32) Anion Gap 9 mmol/L (5-15) Blood Urea Nitrogen 12 mg/dL (7-18) Creatinine 0.8 MG/DL (0.55-1.30) Estimat Glomerular Filtration Rate > 60 mL/min (>60) Glucose Level 124 MG/DL (74-106) H Calcium Level 9.5 MG/DL (8.5-10.1) Total Bilirubin 0.5 MG/DL (0.2-1.0) Aspartate Amino Transf (AST/SGOT) 14 U/L (15-37) L Alanine Aminotransferase (ALT/SGPT) 26 U/L (12-78) Alkaline Phosphatase 126 U/L (46-116) H Pro-B-Type Natriuretic Peptide 1085 pg/mL (0-125) H Total Protein 7.1 G/DL (6.4-8.2) Albumin 2.1 G/DL (3.4-5.0) L Globulin 5.0 g/dL Albumin/Globulin Ratio 0.4 (1.0-2.7) L General: well developed, well nourished Head: normocophalic Neck: no rigidity EENT: benign Neurologic Exam Mental Status: awake, alert Speech: other - INtubated Language: no aphasia - Limited speech but improving daily- query cognitive deficit at baseline Cranial Nerve II: fundus normal, visual georges, no papilledema Cranial Nerves III, IV, : EOMI, pupils - Left pupil > Right Pupil - both reactive Cranial Nerve V: normal facial sensations, temporales function normal Cranial Nerve VII: no facial asymmetry Cranial Nerve VIII: normal hearing Cranial Nerve XI: SCM symmetric Cranial Nerve XII: tongue midline, no tongue atrophy/fasciculations Motor System: normal muscle tone, no involuntary movement, no muscle wasting, other - Some left upper extremity dystmetria and incoordination over weakness. 4 /5 LUE/LLE and 5/5 RUE/RLE Sensory: normal pinprick, normal light touch Deep Tendon Reflexes: 1+ bicep (L), 1+ tricep (L), 1+ brachioradialis (L), 1+ knee (L), 1+ ankle (L); 2+ bicep (R), 2+ tricep (R), 2+ brachioradialis (R), 2+ knee (R), 2+ ankle (R) Reflexes: flexor plantar (L), flexor plantar (R); extensor plantar (L), extensor plantar (R) Gait: other - Still in four point restraints and intubated. Objective Just as alert today- able to follow both midline and non midline commands. Impression/Recommendations Problems: (1) Unequal pupils Assessment & Plan: Monitor, may be drug/ metabolic toxicity vs Central cause ( CVA/Hemorrhage) Resolved (2) Acute respiratory failure Assessment & Plan: Wean vent as able (3) Cocaine abuse Assessment & Plan: [facility] Protocol - Outpatient Psych and Social recommended as able If eligible for rehab, recommend (4) Hypertensive emergency Assessment & Plan: Maintain BP< 140-160 (5) Altered mental state Assessment & Plan: Acute Encephalopathy, Toxic vs Metabolic, Resolved with query of Mild cognitive impairment at baseline Secondary to Cocaine Use / Resp Failure/ CHF Exacerbation Follow up PT/OT/ ST Psych for Drug Abuse/ Social Work Physical Rehab for residual weakness (6) 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 Question mild cognitive impairment at baseline - F/U with Psych/ [facility] as outpatient Juliane Chaidez N.P. Dec 25, 2018 15:42
--- NOTE | 2018-12-25 22:42 | Internal Med Progress Note ---
Subjective Physician Name Rambo Ardon Attending Physician Rambo Ardon MD Allergies: Coded Allergies: No Known Allergies (Unverified , 05/17/18) Subjective In Telemetry, awake, alert, responsive, no acute distress. Objective Last Vital Signs Date Time Temp Pulse Resp B/P (MAP) Pulse Ox O2 Delivery O2 Flow Rate FiO2 12/25/18 08:20 130/80 12/25/18 08:20 88 12/25/18 07:59 98.9 16 95 12/25/18 00:18 Room Air Room Air 12/24/18 20:32 2.0 28 Laboratory Tests Test 12/25/18 06:05 12/25/18 06:24 Uric Acid 2.8 MG/DL (2.6-7.2) Phosphorus Level 3.2 MG/DL (2.5-4.9) Magnesium Level 1.7 MG/DL (1.8-2.4) L White Blood Count 10.5 K/UL (4.8-10.8) Red Blood Count 5.26 M/UL (4.20-5.40) Hemoglobin 13.7 G/DL (12.0-16.0) Hematocrit 42.9 % (37.0-47.0) Mean Corpuscular Volume 82 FL (80-99) Mean Corpuscular Hemoglobin 26.0 PG (27.0-31.0) L Mean Corpuscular Hemoglobin Concent 31.9 G/DL (32.0-36.0) L Red Cell Distribution Width 15.6 % (11.6-14.8) H Platelet Count 493 K/UL (150-450) H Mean Platelet Volume 6.5 FL (6.5-10.1) Neutrophils (%) (Auto) 76.7 % (45.0-75.0) H Lymphocytes (%) (Auto) 10.4 % (20.0-45.0) L Monocytes (%) (Auto) 9.4 % (1.0-10.0) Eosinophils (%) (Auto) 1.7 % (0.0-3.0) Basophils (%) (Auto) 1.8 % (0.0-2.0) Sodium Level 133 MMOL/L (136-145) L Potassium Level 4.0 MMOL/L (3.5-5.1) Chloride Level 99 MMOL/L (98-107) Carbon Dioxide Level 26 MMOL/L (21-32) Anion Gap 9 mmol/L (5-15) Blood Urea Nitrogen 12 mg/dL (7-18) Creatinine 0.8 MG/DL (0.55-1.30) Estimat Glomerular Filtration Rate > 60 mL/min (>60) Glucose Level 124 MG/DL (74-106) H Calcium Level 9.5 MG/DL (8.5-10.1) Total Bilirubin 0.5 MG/DL (0.2-1.0) Aspartate Amino Transf (AST/SGOT) 14 U/L (15-37) L Alanine Aminotransferase (ALT/SGPT) 26 U/L (12-78) Alkaline Phosphatase 126 U/L (46-116) H Pro-B-Type Natriuretic Peptide 1085 pg/mL (0-125) H Total Protein 7.1 G/DL (6.4-8.2) Albumin 2.1 G/DL (3.4-5.0) L Globulin 5.0 g/dL Albumin/Globulin Ratio 0.4 (1.0-2.7) L Intake and Output 12/24/18 12/25/18 19:00 07:00 Intake Total 340 ml Output Total 610 ml Balance -270 ml Intake Oral 340 ml Output Urine Total 610 ml Objective General: No acute distress, awake and alert HEENT: NCAT, sclera anicteric, PERRL, EOMI. Neck: Supple, no significant jugular venous distention, Lungs: Fair inspiratory effort, decreased air at the bases, clear to auscultation bilaterally, no Wheeze or Rales. Heart: Regular rate and rhythm, normal S1/S2, no murmurs/gallops Abdomen: soft, nontender, nondistended. Normoactive bowel sounds. / Rectal: Refused and deferred. Extremities: No Cyanosis , clubbing or edema. Neuro: A&O x 3, Able to move all extremities Skin: warm, no rashes or lesions Psych: Normal mood and affect Assessment/Plan Status Narrative (1) Acute respiratory failure s/p extubation (2) Hypertensive emergency (3) COPD (chronic obstructive pulmonary disease) (4) Severe left ventricular systolic dysfunction (5) Pulmonary hypertension, moderate to severe (6) Pulmonary edema (7) Cocaine abuse Plan: OOB to Chair. PT mobility. CODE STATUS full code. DVT prophylaxis heparin subcu. Consider discharge home today. Rambo Bowman MD Dec 25, 2018 22:42
--- NOTE | 2018-12-27 12:16 | Discharge Summary ---
Discharge Summary Discharge Summary _ DATE OF ADMISSION: 12/19/2018 DATE OF DISCHARGE: 12/25/2018 DISCHARGED BY: Dr. Ardon REASON FOR ADMISSION: 58 years old female with past medical history of hypertension, COPD, asthma, was brought by paramedics due to respiratory distress. Patient was found outside of the apartment building with labored breathing. Witness told paramedics that patient had a history of asthma. Patient appeared to have diffuse wheezing bilaterally with crackles and started on the CPAP. Patient also received nitroglycerin. She reported smoking history. No reported fevers or chills. Patient was unable to provide any additional history at that time . Upon evaluation laboratory workup revealed no leukocytosis, stable hemoglobin and hematocrit. Lactic acid above 3. Urine toxicology screen was positive for cocaine. Electrolytes stable. EKG revealed sinus tachycardia, no acute ischemic changes. Patient remained in respiratory distress, lethargic after nitroglycerin , breathing treatments and CPAP. Patient not allowed to do chest x-ray or ABG. Patient clinically required and subsequently was orally intubated. Chest x-ray confirmed ET tube placement with significant bilateral infiltrates versus edema. ABG revealed significant acidosis with hypercapnia and hypoxia. Ventilator settings adjusted based on ABG. Patient received a dose of Lasix, started antibiotic and admitted to ICU for further management. [facility] neurologist pulmonary Dr. Noe bark scaler Dr. Wright [facility]SE: Patient initially admitted to ICU. Ventilator support and pulmonary toilet provided. Patient was followed-up with ABG and chest x-ray. Ventilator settings titrated based on ABG results. Hypercapnia resolved. Patient eventually was able to be extubated. Echocardiogram revealed global left ventricular hypokinesis with left ventricular ejection fraction estimated to be 30-35%. No evidence of left ventricular hypertrophy. Right ventricular systolic pressure of 68 consistent with severe pulmonary hypertension Venous duplex bilateral lower extremity revealed no evidence of acute DVT. Patient was started on IV diuresis with close monitoring of volumes and cardiorenal parameters. ProBNP from 2953 down to 1085. Chest x-ray showed improvement. Supplemental oxygen provided as needed to keep pulse oximetry above 92%. Pulmonary toilet was on standby as needed. Blood pressure was managed with multiply antihypertensive medication as per bark scaler. Patient was on anti-failure medication regimen. Lipid panel revealed elevated LDL. Patient was counseled on low-fat low- cholesterol diet. At this time patient declined statin. DVT and GI prophylaxis provided . Renal parameters and electrolytes were closely monitored. Electrolytes corrected as needed. Patient also noted to have evidence of acute renal failure when creatinine was up to 1.5. Patient was provided with fluid bolus, creatinine down to 1 on discharge. Counselor Aide recommended to avoid nephrotoxic as possible. Neurologist followed for altered mental status. Per neurologist patient had acute encephalopathy toxic versus metabolic. CT of the head revealed evidence of old bilateral basal ganglia lacunar infarcts. Chronic and age-related changes noted. No evidence of acute intracranial bleeding or mass-effect. Blood cultures were negative. Last lactic acid down to 1.7. As patient condition continued to improve, her mental status improved to baseline/ mild cognitive impairment. Acute encephalopathy was multifactorial, likely due to cocaine induced , respiratory failure and CHF exacerbation. Patient was working with physical therapy. Patient was counseled on abstinence from illicit street drugs and advised on smoking cessation. FINAL DIAGNOSES: Acute respiratory failure requiring intubation , status post extubation Hypertensive emergency COPD/asthma Severe left ventricular systolic dysfunction Pulmonary hypertension , moderate to severe Cocaine abuse Pulmonary edema Acute renal failure , multifactorial -resolved Altered mental status due to acute encephalopathy ,toxic versus metabolic , - resolved to baseline DISCHARGE MEDICATIONS: See Medication Reconciliation list. DISCHARGE INSTRUCTIONS: Patient was discharged home daily. Follow up with primary care provider in one week. I have been assigned to dictate discharge summary for this account. I was not involved in the patient's management. Kaitlynn Padgett NP Dec 27, 2018 12:16
--- NOTE | 2018-12-28 09:14 | NUR ---
*-* INSURANCE *-* DISCHARGE SUMMARY HAS BEEN FAXED TO: [employer] F:[phone] REF# [id number]
== END 2018-12-25 13:19 | disposition home or self-care (01) | DRG 133 ==
LOC: EDBD 09:33 → EMR 10:02 → EDBEDREQ 11:21 → EDBEDREQSVC 11:21 → EDBEDREQ 12:33 → ICU 13:26 → 2E 12-24 14:30
PROC: 5A1945Z Respiratory Ventilation, 24-96 Consecutive Hours (ICD-10-PCS; principal; 2018-12-19)
PROC: 0BH18EZ Insertion of Endotracheal Airway into Trachea, Via Natural or Artificial Opening Endoscopic (ICD-10-PCS; principal; 2018-12-19)
DX: J96.00 Acute respiratory failure, unspecified whether with hypoxia or hypercapnia (principal); J81.0 Acute pulmonary edema; G92 Toxic encephalopathy; J18.9 Pneumonia, unspecified organism; N17.9 Acute kidney failure, unspecified; I11.0 Hypertensive heart disease with heart failure; I27.20 Pulmonary hypertension, unspecified; I50.9 Heart failure, unspecified; I16.1 Hypertensive emergency; F14.10 Cocaine abuse, uncomplicated; J44.0 Chronic obstructive pulmonary disease with (acute) lower respiratory infection
CPT/HCPCS: 36415; 36600; 70450; 71045; 74018; 80048; 80053; 80061; 80069; 80307; 81001; 81003; 82043; 82248; 82550; 82553; 82570; 82607; 82746; 82803; 82977; 83036; 83605; 83735; 83880; 84100; 84133; 84300; 84443; 84484; 84550; 85025; 86140; 87040; 87081; 89050; 93005; 93306; 93970; 94002; 94003; 94640; 94660; 94664; 94760; 96365; 96368; 96375; 99291

== ENCOUNTER 2019-07-15 18:11 | Observation (INO) | payer OTHER ==
[~2019-07-15] VITALS: Ht 167.6 cm; Wt 57.2 kg
[~2019-07-15 18:11] MED LIST changes: -Solu-MEDROL 125mg Inj IVP ONE; +UNOBMED
--- NOTE | 2019-07-15 18:19 | NUR ---
ED Nurse Note: Pt BIBA from the street due to ascite, rigid abdomen with pain x yesterday, pain 6/10 at this time. Also complains of diarrhea, NO blood in stool. AOOx4, BP 141/121, HR 76 upona rrival, ERMD aware. Able to needs known. NAD. Will cont to monitor.
[2019-07-15 18:22] VITALS: BP 141/121
[2019-07-15 18:51] LABS: BASOPHILS % (AUTO) 1.8 % (0.0-2.0); EOSINOPHILS % (AUTO) 0.6 % (0.0-3.0); HEMATOCRIT 44.9 % (37.0-47.0); HEMOGLOBIN 14.2 G/DL (12.0-16.0); LYMPHOCYTES % (AUTO) 17.3 % (20.0-45.0); MEAN CORPUSCULAR VOLUME 81 FL (80-99); MONOCYTES % (AUTO) 6.6 % (1.0-10.0); NEUTROPHILS % (AUTO) 73.6 % (45.0-75.0); PLATELET COUNT 429 K/UL (150-450); RED BLOOD COUNT 5.58 M/UL (4.20-5.40); RED CELL DISTRIBUTION WIDTH 18.3 % (11.6-14.8); WHITE BLOOD COUNT 9.5 K/UL (4.8-10.8)
--- NOTE | 2019-07-15 18:59 | NUR ---
ED Nurse Note: Pt ambulated to the bathroom. Urine collected and sent to lab.
[2019-07-15 19:03] LABS: INR 1.3 (0.9-1.1)
[2019-07-15 19:04] LABS: ANION GAP 10 mmol/L (5-15); BLOOD UREA NITROGEN 15 mg/dL (7-18); CALCIUM 8.7 MG/DL (8.5-10.1); CARBON DIOXIDE 27 MMOL/L (21-32); CHLORIDE 98 MMOL/L (98-107); POTASSIUM 4.2 MMOL/L (3.5-5.1); SODIUM 135 MMOL/L (136-145)
[2019-07-15 19:06] LABS: APPEARANCE,URINE CLEAR; BILIRUBIN, URINE 1+ (NEGATIVE); COLOR,URINE BROWN; GLUCOSE, URINE (UA) NEGATIVE (NEGATIVE); KETONES,URINE 1+ (NEGATIVE); LEUKOCYTE ESTERASE ,URINE 2+ (NEGATIVE); NITRITE,URINE NEGATIVE (NEGATIVE); PH,URINE 5 (4.5-8.0); PROTEIN,URINE 4+ (NEGATIVE); UROBILINOGEN,URINE 8 MG/DL (0.0-1.0)
[2019-07-15 19:13] LABS: ALANINE AMINOTRANSFERASE 36 U/L (12-78); ALBUMIN 3.2 G/DL (3.4-5.0); ALBUMIN/GLOBULIN RATIO 0.7 (1.0-2.7); ALKALINE PHOSPHATASE 242 U/L (46-116); ASPARTATE AMINO TRANSFERASE 35 U/L (15-37)
--- NOTE | 2019-07-15 20:06 | Emergency Room Report ---
History of Present Illness General Chief Complaint: Abdominal Pain Source: Patient, EMS (Joao Marie MD) Present Illness HPI Patient presents with dyspnea. This is been happening for the last 3 days. She admits to paramedics that she is been doing cocaine. He denies chest pain. She denies fevers or chills. She has no productive cough at this time. She also smokes cigarettes. In addition she has had some abdominal distention. Denies vomiting or diarrhea. She denies dysuria. There is no calf tenderness recently. She has noticed a little bit of swelling in her legs. No sore throat, chest pain, palpitations, nausea, vomiting, diarrhea, dysuria, abdominal pain, joint pain, rashes, depression, anxiety, visual changes, dizziness, headache. She states she does not feel safe where she stays. She is homeless. Patient last admitted December 2018 with these discharge diagnoses: Acute respiratory failure requiring intubation , status post extubation Hypertensive emergency COPD/asthma Severe left ventricular systolic dysfunction Pulmonary hypertension , moderate to severe Cocaine abuse Pulmonary edema Acute renal failure , multifactorial -resolved Altered mental status due to acute encephalopathy ,toxic versus metabolic , - resolved to baseline (Joao Marie MD) Allergies: Coded Allergies: No Known Allergies (Unverified , 05/17/18) Patient History Past Medical History: see triage record, old chart reviewed Social History: Reports: smoking, drug use Social History Narrative Homeless Last Menstrual Period: N/A Now: No Reviewed Nursing Documentation: PMH: Agreed; PSxH: Agreed (Joao Marie MD) Nursing Documentation-PMH Hx Cardiac Problems: Yes Hx Hypertension: Yes Hx Asthma: Yes Hx COPD: Yes Hx Cancer: No Hx Gastrointestinal Problems: No Hx Neurological Problems: No (Joao Marie MD) Review of Systems All Other Systems: negative except mentioned in HPI (Joao Marie MD) Physical Exam Vital Signs Date Time Temp Pulse Resp B/P (MAP) Pulse Ox O2 Delivery O2 Flow Rate FiO2 07/15/19 18:08 98.1 74 15 154/100 (118) 97 Room Air Sp02 EP Interpretation: reviewed, normal General Appearance: well appearing, no apparent distress, GCS 15 Head: normocephalic Eyes: bilateral eye PERRL, bilateral eye EOMI, bilateral eye Scleral Injection ENT: moist mucus membranes Neck: supple Respiratory: no retraction, respiratory distress - minimal, decreased breath sounds, crackles, rales Cardiovascular #1: regular rate, rhythm, edema - trace- 1+ Cardiovascular #2: 2+ radial (R) Gastrointestinal: normal inspection, non tender, no mass, distended, other - cannot tell if fluid wave, decreased bowel sounds Musculoskeletal: back normal, normal range of motion, no calf tenderness Neurologic: alert, motor strength/tone normal, DTRs symmetric, sensory intact, normal gait, speech normal, oriented - X2 Psychiatric: mood/affect normal Skin: no rash, warm/dry (Joao Marie MD) Medical Decision Making Diagnostic Impression: Primary Impression: CHF (congestive heart failure) Qualified Codes: I50.43 - Acute on chronic combined systolic (congestive) and diastolic (congestive) heart failure Additional Impressions: UTI (urinary tract infection) Qualified Codes: N39.0 - Urinary tract infection, site not specified Cocaine abuse ER Course Patient presents with dyspnea and abdominal distention after admitting to cocaine use. Differential includes acute myocardial infarction, congestive heart failure, bronchitis, cirrhosis, hepatic engorgement from right heart failure, small bowel obstruction, ascites, pulmonary embolus amongst others. Based on vital signs and symptoms pulmonary embolus is less likely. Evaluation with EKG, chest x-ray and labs. Abdominal films will be obtained. Patient placed on panel monitor. EKG normal sinus rhythm with biatrial enlargement, left axis deviation and pulmonary disease pattern. Chest x-ray with interstitial edema no effusions some cardiomegaly. Abdomen nonspecific bowel gas pattern suggestion of possible ascites. Labs significant for elevated BNP negative troponin and positive cocaine. Patient given Lasix and diuresing. Still dyspneic and due to the previous history patient needs observation. Signed out to Dr. Delaney for possible transfer. business services manager consult ordered. Laboratory Tests Test 07/15/19 18:20 07/15/19 18:50 White Blood Count 9.5 K/UL (4.8-10.8) Red Blood Count 5.58 M/UL (4.20-5.40) H Hemoglobin 14.2 G/DL (12.0-16.0) Hematocrit 44.9 % (37.0-47.0) Mean Corpuscular Volume 81 FL (80-99) Mean Corpuscular Hemoglobin 25.5 PG (27.0-31.0) L Mean Corpuscular Hemoglobin Concent 31.6 G/DL (32.0-36.0) L Red Cell Distribution Width 18.3 % (11.6-14.8) H Platelet Count 429 K/UL (150-450) Mean Platelet Volume 5.6 FL (6.5-10.1) L Neutrophils (%) (Auto) 73.6 % (45.0-75.0) Lymphocytes (%) (Auto) 17.3 % (20.0-45.0) L Monocytes (%) (Auto) 6.6 % (1.0-10.0) Eosinophils (%) (Auto) 0.6 % (0.0-3.0) Basophils (%) (Auto) 1.8 % (0.0-2.0) Prothrombin Time 13.4 SEC (9.30-11.50) H Prothrombin Time INR 1.3 (0.9-1.1) H PTT 20 SEC (23-33) L Sodium Level 135 MMOL/L (136-145) L Potassium Level 4.2 MMOL/L (3.5-5.1) Chloride Level 98 MMOL/L (98-107) Carbon Dioxide Level 27 MMOL/L (21-32) Anion Gap 10 mmol/L (5-15) Blood Urea Nitrogen 15 mg/dL (7-18) Creatinine 1.0 MG/DL (0.55-1.30) Estimate Glomerular Filtration Rate > 60 mL/min (>60) Glucose Level 112 MG/DL (74-106) H Calcium Level 8.7 MG/DL (8.5-10.1) Total Bilirubin 1.0 MG/DL (0.2-1.0) Aspartate Amino Transferase (AST) 35 U/L (15-37) Alanine Aminotransferase (ALT) 36 U/L (12-78) Alkaline Phosphatase 242 U/L (46-116) H Troponin I 0.034 ng/mL (0.000-0.056) Pro-B-Type Natriuretic Peptide 3775 pg/mL (0-125) H Total Protein 8.0 G/DL (6.4-8.2) Albumin 3.2 G/DL (3.4-5.0) L Globulin 4.8 g/dL Albumin/Globulin Ratio 0.7 (1.0-2.7) L Lipase 385 U/L (73-393) Serum Alcohol < 3 mg/dL Urine Color Brown Urine Appearance Clear Urine pH 5 (4.5-8.0) Urine Specific [place] 1.020 (1.005-1.035) Urine Protein 4+ (NEGATIVE) H Urine Glucose (UA) Negative (NEGATIVE) Urine Ketones 1+ (NEGATIVE) H Urine Blood 1+ (NEGATIVE) H Urine Nitrite Negative (NEGATIVE) Urine Bilirubin 1+ (NEGATIVE) H Urine Ictotest Negative (NEGATIVE) Urine Urobilinogen 8 MG/DL (0.0-1.0) H Urine Leukocyte Esterase 2+ (NEGATIVE) H Urine RBC 20-30 /HPF (0 - 2) H Urine WBC 10-15 /HPF (0 - 2) H Urine Squamous Epithelial Cells Moderate /LPF (NONE/OCC) H Urine Bacteria Few /HPF (NONE) Urine Opiates Screen Negative (NEGATIVE) Urine Barbiturates Screen Negative (NEGATIVE) Phencyclidine (PCP) Screen Negative (NEGATIVE) Urine Amphetamines Screen Negative (NEGATIVE) Urine Benzodiazepines Screen Negative (NEGATIVE) Urine Cocaine Screen Positive (NEGATIVE) H Urine Marijuana (THC) Screen Positive (NEGATIVE) H (Joao Marie MD) ER Course Patient signed out to me pending disposition. She presents with chief complaint of shortness of breath. She has CHF and also cocaine abuse. She diuresing well. We will place her in observation. She is approved for observation here. I will contact Dr. Ardon. (Noam Delaney MD) EKG Diagnostic Results Rate: normal Rhythm: NSR ST Segments: no acute changes - Biatrial enlargement, pulmonary disease pattern and left axis deviation (Joao Marie MD) Rhythm Strip Diag. Results EP Interpretation: yes Rhythm: NSR, no PVC's, no ectopy (Joao Marie MD) Chest X-Ray Diagnostic Results Chest X-Ray Diagnostic Results : Chest X-Ray Ordered: Yes # of Views/Limited/Complete: 1 View Indication: Shortness of Breath EP Interpretation: Yes Interpretation: no effusion, no pneumothorax, other - CHF Impression: Other Electronically Signed by: Electronically signed by Joao Marie MD (Joao Marie MD) Other X-Ray Diagnostic Results Other X-Ray Diagnostic Results : X-Ray ordered: abd # of Views/Limited Vs Complete: 1 View Indication: Other EP Interpretation: Yes Interpretation: nonspecific bowel gas, no sbo, other - inc hepar Impression: Other Electronically Signed by: Electronically signed by Joao Marie MD (Joao Marie MD) Last Vital Signs Date Time Temp Pulse Resp B/P (MAP) Pulse Ox O2 Delivery O2 Flow Rate FiO2 07/16/19 00:23 82 142/81 07/15/19 20:10 22 92 Room Air 07/15/19 18:22 98.1 Status: improved (Joao Marie MD) Disposition: PLACE IN OBSERVATION Condition: Serious Joao Marie MD Jul 15, 2019 20:06 Noam Delaney MD Jul 15, 2019 22:18
[2019-07-15 20:10] VITALS: BP 142/81
--- NOTE | 2019-07-15 20:11 | NUR ---
ED Nurse Note: called XRAY and they will come up to perform CXR on pt when they finish with current pt in radiology. pt is currently sleeping and appears to be in no acute distress. vital signs are: HR: 82 RR: 22 SpO2: 92% on room air BP: 142/81
--- NOTE | 2019-07-15 20:30 | NUR ---
ED Nurse Note: XRAY is in with pt
--- NOTE | 2019-07-15 20:40 | NUR ---
ED Nurse Note: pt requesting food, ERMD approved. pt eating a sandwich in ebd
--- NOTE | 2019-07-15 21:17 | NUR ---
ED Nurse Note: pt ate half of her sandwich and was able to ambulate to restroom with a steady gait.
--- NOTE | 2019-07-15 23:17 | NUR ---
ED Nurse Note: report given to LINDA Mason. room is not ready yet, will call when room is ready for pt to be transported
[2019-07-16] VITALS (7 sets, daily range): BP systolic 137–176; BP diastolic 80–115
--- NOTE | 2019-07-16 | NUR ---
NURSE NOTES: Patient arrived on unit via gurney with galina and RN and placed into bed in 238-2. Report received from LINDA Hull. campus monitor placed, linens are changed, bedside commode and fan is at bedside. Bed on low, locked and alarm is activated. Reinforced education on bed alarm and safety. Yellow gown and yellow socks on. Left message for Dr. Ardon for admission orders. Will initiate plan of care.
[2019-07-16] MEDS ORDERED: ASPIRIN EC81 MG ORAL (00:53)
[2019-07-16] MEDS ORDERED: PREDNISOLO15 MG/5 M1 ORAL (00:53)
[2019-07-16] MEDS ORDERED: METFORMIN HCL500 M1 ORAL (00:53)
[2019-07-16] MEDS ORDERED: LIPITOR40 MG ORAL (00:53)
--- NOTE | 2019-07-16 01:19 | NUR ---
NURSE NOTES: Patient sent $45 to the safe (2x $20 and 1x $5). Charge nurse, security and nursing sup was present. Patient signed receipt and receipt placed into backpack. Home medication (4 bottles) also will send to pharmacy in the AM. Attempted to obtain admission orders again, message left for Dr. Ardon on emergency line.
--- NOTE | 2019-07-16 01:44 | NUR ---
NURSE NOTES: Called Dr. Sheth per hospital protocol for standing admission orders. Will input orders per MD.
[2019-07-16] MEDS ORDERED: HYDROcodone/Acetamin 5/325 tab ORAL PRN (02:00)
[2019-07-16] MEDS ORDERED: Morphine Sulfate 2mg/ml Inj(IV/IM USE ONLY) IVP PRN (02:00)
[2019-07-16] MEDS: NovoLOG Insulin Flexpen SUBQ SCH ×4 (06:07→21:00)
--- NOTE | 2019-07-16 07:26 | NUR ---
HAND-OFF: Report given to LINDA Pardo.
--- NOTE | 2019-07-16 07:27 | NUR ---
NURSE NOTES: Late entry: PT and report received from LINDA Mason; PT A/O x 3; forgets limitations, observed ambulating to bedside commode without any difficulty, advised to stay in bed, but PT does not follow commands, bed alarm is on, active, locked in lowest position. PT on RA, saturating well, no S/S of respiratory distress noted. PT has transfer orders to tele, will continue to monitor PT.
[2019-07-16 07:40] LABS: BASOPHILS % (AUTO) 1.6 % (0.0-2.0); EOSINOPHILS % (AUTO) 0.8 % (0.0-3.0); HEMATOCRIT 41.3 % (37.0-47.0); LYMPHOCYTES % (AUTO) 18.1 % (20.0-45.0); MEAN CORPUSCULAR VOLUME 81 FL (80-99); MONOCYTES % (AUTO) 10.7 % (1.0-10.0); NEUTROPHILS % (AUTO) 68.8 % (45.0-75.0); PLATELET COUNT 429 K/UL (150-450); RED BLOOD COUNT 5.12 M/UL (4.20-5.40); RED CELL DISTRIBUTION WIDTH 20.1 % (11.6-14.8); WHITE BLOOD COUNT 8.8 K/UL (4.8-10.8)
--- NOTE | 2019-07-16 07:52 | NUR ---
NURSE NOTES: PT given breakfast, no difficulty swallow, no coughing noted. Able to swallow without any difficulty.
[2019-07-16 07:58] LABS: ANION GAP 6 mmol/L (5-15); BLOOD UREA NITROGEN 18 mg/dL (7-18); CALCIUM 8.7 MG/DL (8.5-10.1); CARBON DIOXIDE 27 MMOL/L (21-32); CHLORIDE 101 MMOL/L (98-107); PHOSPHORUS 2.5 MG/DL (2.5-4.9); POTASSIUM 4.2 MMOL/L (3.5-5.1); SODIUM 134 MMOL/L (136-145)
[2019-07-16] MEDS ORDERED: Labetalol 5mg/ml 20ml vial IV PRN (09:15)
--- NOTE | 2019-07-16 09:16 | Consultation ---
History of Present Illness General Date patient seen: Jul 16, 2019 Chief Complaint: Abdominal Pain Present Illness HPI 58 years old female with past medical history of hypertension, COPD, asthma, cardiomyopathy, brought in by paramedics with CC of shortness of breath and abdominal pain. Allergies: Coded Allergies: No Known Allergies (Unverified , 05/17/18) Medication History Scheduled Aspirin Ec* (Aspirin Ec*), 81 MG ORAL DAILY, (Reported) Atorvastatin Calcium* (Lipitor*), 40 MG ORAL DAILY, (Reported) Metformin Hcl* (Metformin Hcl*), 500 MG ORAL TWICE A DAY, (Reported) Prednisolone* (Prelone*), 20 MG ORAL BID, (Reported) Miscellaneous Medications Unable to Obtain Medications (Unable To Obtain Meds), (Reported) Discontinued Medications Albuterol Sulfate* (Proair Hfa*), 2 PUFFS INH Q6H, (Reported) Discontinued Reason: Pt stopped taking med Amlodipine Besylate (Norvasc), 10 MG ORAL DAILY, (Reported) Discontinued Reason: Pt stopped taking med Fluticasone/Vilanterol (Breo Ellipta 200-25 Mcg INH), 1 EACH IH, (Reported) Discontinued Reason: Pt stopped taking med Losartan Potassium* (Losartan Potassium*), 30 MG ORAL DAILY, (Reported) Discontinued Reason: Pt stopped taking med Tiotropium Francitas (Spiriva), 2 PUFF INH DAILY, (Reported) Discontinued Reason: Pt stopped taking med Patient History Healthcare decision maker Resuscitation status Full Code Advanced Directive on File Past Medical/Surgical History Past Medical/Surgical History: (1) Cocaine abuse (2) Basal ganglia infarction (3) Pulmonary hypertension, moderate to severe Review of Systems All Other Systems: negative except mentioned in HPI Physical Exam General Appearance: cachetic, thin Lines, tubes and drains: peripheral HEENT: normocephalic, atraumatic Neck: non-tender, normal alignment Respiratory/Chest: chest wall non-tender, lungs clear Breasts: no masses Cardiovascular/Chest: normal peripheral pulses Abdomen: normal bowel sounds Genitourinary/Rectal: normal genital exam Extremities: normal range of motion Skin Exam: normal pigmentation Last 24 Hour Vital Signs Date Time Temp Pulse Resp B/P (MAP) Pulse Ox O2 Delivery O2 Flow Rate FiO2 07/16/19 08:00 97.3 84 20 162/99 (120) 99 07/16/19 04:00 98.3 78 18 165/96 (119) 100 07/16/19 04:00 Room Air 07/16/19 03:36 75 07/16/19 00:23 82 142/81 07/16/19 00:20 75 07/16/19 00:00 Room Air 07/16/19 00:00 96.0 75 18 158/107 (124) 96 07/15/19 20:10 82 22 142/81 92 Room Air 07/15/19 18:22 98.1 76 23 141/121 99 Room Air 07/15/19 18:17 74 15 Room Air 07/15/19 18:08 98.1 74 15 154/100 (118) 97 Room Air Intake and Output 07/15/19 07/16/19 19:00 07:00 Intake Total 300 ml Balance 300 ml Intake Oral 300 ml # Voids 1 3 # Bowel Movements 2 Laboratory Tests Test 07/15/19 18:20 07/15/19 18:50 07/16/19 07:05 White Blood Count 9.5 K/UL (4.8-10.8) 8.8 K/UL (4.8-10.8) Red Blood Count 5.58 M/UL (4.20-5.40) H 5.12 M/UL (4.20-5.40) Hemoglobin 14.2 G/DL (12.0-16.0) 13.0 G/DL (12.0-16.0) Hematocrit 44.9 % (37.0-47.0) 41.3 % (37.0-47.0) Mean Corpuscular Volume 81 FL (80-99) 81 FL (80-99) Mean Corpuscular Hemoglobin 25.5 PG (27.0-31.0) L 25.3 PG (27.0-31.0) L Mean Corpuscular Hemoglobin Concent 31.6 G/DL (32.0-36.0) L 31.4 G/DL (32.0-36.0) L Red Cell Distribution Width 18.3 % (11.6-14.8) H 20.1 % (11.6-14.8) H Platelet Count 429 K/UL (150-450) 429 K/UL (150-450) Mean Platelet Volume 5.6 FL (6.5-10.1) L 5.8 FL (6.5-10.1) L Neutrophils (%) (Auto) 73.6 % (45.0-75.0) 68.8 % (45.0-75.0) Lymphocytes (%) (Auto) 17.3 % (20.0-45.0) L 18.1 % (20.0-45.0) L Monocytes (%) (Auto) 6.6 % (1.0-10.0) 10.7 % (1.0-10.0) H Eosinophils (%) (Auto) 0.6 % (0.0-3.0) 0.8 % (0.0-3.0) Basophils (%) (Auto) 1.8 % (0.0-2.0) 1.6 % (0.0-2.0) Prothrombin Time 13.4 SEC (9.30-11.50) H Prothromb Time International Ratio 1.3 (0.9-1.1) H Activated Partial Thromboplast Time 20 SEC (23-33) L Sodium Level 135 MMOL/L (136-145) L 134 MMOL/L (136-145) L Potassium Level 4.2 MMOL/L (3.5-5.1) 4.2 MMOL/L (3.5-5.1) Chloride Level 98 MMOL/L (98-107) 101 MMOL/L (98-107) Carbon Dioxide Level 27 MMOL/L (21-32) 27 MMOL/L (21-32) Anion Gap 10 mmol/L (5-15) 6 mmol/L (5-15) Blood Urea Nitrogen 15 mg/dL (7-18) 18 mg/dL (7-18) Creatinine 1.0 MG/DL (0.55-1.30) 1.0 MG/DL (0.55-1.30) Estimat Glomerular Filtration Rate > 60 mL/min (>60) > 60 mL/min (>60) Glucose Level 112 MG/DL (74-106) H 152 MG/DL (74-106) H Calcium Level 8.7 MG/DL (8.5-10.1) 8.7 MG/DL (8.5-10.1) Total Bilirubin 1.0 MG/DL (0.2-1.0) Aspartate Amino Transf (AST/SGOT) 35 U/L (15-37) Alanine Aminotransferase (ALT/SGPT) 36 U/L (12-78) Alkaline Phosphatase 242 U/L (46-116) H Troponin I 0.034 ng/mL (0.000-0.056) Pro-B-Type Natriuretic Peptide 3775 pg/mL (0-125) H Total Protein 8.0 G/DL (6.4-8.2) Albumin 3.2 G/DL (3.4-5.0) L Globulin 4.8 g/dL Albumin/Globulin Ratio 0.7 (1.0-2.7) L Lipase 385 U/L (73-393) Serum Alcohol < 3 mg/dL Urine Color Brown Urine Appearance Clear Urine pH 5 (4.5-8.0) Urine Specific [place] 1.020 (1.005-1.035) Urine Protein 4+ (NEGATIVE) H Urine Glucose (UA) Negative (NEGATIVE) Urine Ketones 1+ (NEGATIVE) H Urine Blood 1+ (NEGATIVE) H Urine Nitrite Negative (NEGATIVE) Urine Bilirubin 1+ (NEGATIVE) H Urine Ictotest Negative (NEGATIVE) Urine Urobilinogen 8 MG/DL (0.0-1.0) H Urine Leukocyte Esterase 2+ (NEGATIVE) H Urine RBC 20-30 /HPF (0 - 2) H Urine WBC 10-15 /HPF (0 - 2) H Urine Squamous Epithelial Cells Moderate /LPF (NONE/OCC) H Urine Bacteria Few /HPF (NONE) Urine Opiates Screen Negative (NEGATIVE) Urine Barbiturates Screen Negative (NEGATIVE) Phencyclidine (PCP) Screen Negative (NEGATIVE) Urine Amphetamines Screen Negative (NEGATIVE) Urine Benzodiazepines Screen Negative (NEGATIVE) Urine Cocaine Screen Positive (NEGATIVE) H Urine Marijuana (THC) Screen Positive (NEGATIVE) H Phosphorus Level 2.5 MG/DL (2.5-4.9) Magnesium Level 1.5 MG/DL (1.8-2.4) L Height (Feet): 5 Height (Inches): 6.00 Weight (Pounds): 126 Medications Current Medications Medications (Trade) Dose Ordered Sig/Alisia Route PRN Reason Start Time Stop Time Status Last Admin Dose Admin Acetaminophen/ Hydrocodone Bitart ([place] 5/325) 1 tab Q6H PRN ORAL For Pain 07/16/19 02:00 07/23/19 01:59 Aspirin (Ecotrin) 81 mg DAILY ORAL 07/16/19 09:00 08/15/19 08:59 Atorvastatin Calcium (Lipitor) 40 mg BEDTIME ORAL 07/16/19 21:00 08/15/19 20:59 Dextrose (Dextrose 50%) 25 ml Q30M PRN IV Hypoglycemia 07/16/19 01:45 08/15/19 01:44 Dextrose (Dextrose 50%) 50 ml Q30M PRN IV Hypoglycemia 07/16/19 01:45 08/15/19 01:44 Furosemide (Lasix) 20 mg DAILY IV 07/16/19 09:00 08/15/19 08:59 Heparin Sodium (Porcine) (Heparin 5000 units/ml) 5,000 units EVERY 12 HOURS SUBQ 07/16/19 09:00 08/15/19 08:59 Insulin Aspart (NovoLOG) BEFORE MEALS AND HS SUBQ 07/16/19 06:30 08/15/19 06:29 07/16/19 06:07 Morphine Sulfate (Morphine Sulfate) 2 mg Q4H PRN IVP For Pain 07/16/19 02:00 07/23/19 01:59 Ondansetron HCl (Zofran) 4 mg EVERY 4 HOURS PRN IVP Nausea & Vomiting 07/16/19 02:00 08/15/19 01:59 Assessment/Plan Problem List: (1) UTI (urinary tract infection) ICD Codes: N39.0 - Urinary tract infection, site not specified SNOMED: 18423948 Qualifiers: Qualified Codes: N39.0 - Urinary tract infection, site not specified (2) Pulmonary hypertension, moderate to severe ICD Codes: I27.20 - Pulmonary hypertension, unspecified SNOMED: 29645854 (3) Basal ganglia infarction ICD Codes: I63.9 - Cerebral infarction, unspecified SNOMED: 560648026 (4) Cocaine abuse ICD Codes: F14.10 - Cocaine abuse, uncomplicated SNOMED: 76172559 (5) Severe left ventricular systolic dysfunction ICD Codes: I51.9 - Heart disease, unspecified SNOMED: 879844987 Arsalan Noe MD Jul 16, 2019 09:16
[2019-07-16] MEDS: Aspirin EC 81mg tab ORAL SCH (09:35)
[2019-07-16] MEDS: Heparin 5000 units/ml inj SUBQ SCH ×2 (09:37→21:00)
--- NOTE | 2019-07-16 10:31 | Diagnostic Imaging Report ---
Indication: Reason For Exam: ABD PAIN Technique: Single AP view of the chest. Comparison: Chest radiograph dated 12/25/2018 Findings: The cardiomediastinal silhouette is unchanged, with persistent moderate cardiomegaly and prominence of the main pulmonary arterial trunk. Redemonstration of cystic changes and scarring of the lung apices, right greater than left. Increasing density in the right base. No pleural effusion. No pneumothorax. Persistent elevation of the right hemidiaphragm. No acute osseous abnormality. IMPRESSION: 1. Increasing density in the right base, which may represent atelectasis but pneumonia should be excluded clinically. 2. Cardiomegaly and suggestion of pulmonary arterial hypertension.
--- NOTE | 2019-07-16 10:32 | Diagnostic Imaging Report ---
Indication: Reason For Exam: ABD PAIN Technique: AP view of the abdomen Comparison: Abdominal radiograph dated 12/19/2018 Findings: Bowel gas pattern is nonobstructive. Right lung base demonstrates patchy airspace opacity, better evaluated on same chest radiograph. No acute osseous of normality. IMPRESSION: Nonobstructive bowel gas pattern.
[2019-07-16] MEDS: cefTRIAXone 1 GM in D5W 55 ML IVPB SCH (10:48)
--- NOTE | 2019-07-16 10:48 | Cardiology Progress Note ---
Assessment/Plan Assessment/Plan [id number] diurtic acei bb soon stress test echo statin doubt ischemic pain Objective Last 24 Hour Vital Signs Date Time Temp Pulse Resp B/P (MAP) Pulse Ox O2 Delivery O2 Flow Rate FiO2 07/16/19 09:00 Room Air 07/16/19 08:00 97.3 84 20 162/99 (120) 99 07/16/19 07:48 77 07/16/19 04:00 98.3 78 18 165/96 (119) 100 07/16/19 04:00 Room Air 07/16/19 03:36 75 07/16/19 00:23 82 142/81 07/16/19 00:20 75 07/16/19 00:00 Room Air 07/16/19 00:00 96.0 75 18 158/107 (124) 96 07/15/19 20:10 82 22 142/81 92 Room Air 07/15/19 18:22 98.1 76 23 141/121 99 Room Air 07/15/19 18:17 74 15 Room Air 07/15/19 18:08 98.1 74 15 154/100 (118) 97 Room Air Intake and Output 07/15/19 07/16/19 19:00 07:00 Intake Total 300 ml Balance 300 ml Intake Oral 300 ml # Voids 1 3 # Bowel Movements 2 Laboratory Tests Test 07/15/19 18:20 07/15/19 18:50 07/16/19 07:05 White Blood Count 9.5 K/UL (4.8-10.8) 8.8 K/UL (4.8-10.8) Red Blood Count 5.58 M/UL (4.20-5.40) H 5.12 M/UL (4.20-5.40) Hemoglobin 14.2 G/DL (12.0-16.0) 13.0 G/DL (12.0-16.0) Hematocrit 44.9 % (37.0-47.0) 41.3 % (37.0-47.0) Mean Corpuscular Volume 81 FL (80-99) 81 FL (80-99) Mean Corpuscular Hemoglobin 25.5 PG (27.0-31.0) L 25.3 PG (27.0-31.0) L Mean Corpuscular Hemoglobin Concent 31.6 G/DL (32.0-36.0) L 31.4 G/DL (32.0-36.0) L Red Cell Distribution Width 18.3 % (11.6-14.8) H 20.1 % (11.6-14.8) H Platelet Count 429 K/UL (150-450) 429 K/UL (150-450) Mean Platelet Volume 5.6 FL (6.5-10.1) L 5.8 FL (6.5-10.1) L Neutrophils (%) (Auto) 73.6 % (45.0-75.0) 68.8 % (45.0-75.0) Lymphocytes (%) (Auto) 17.3 % (20.0-45.0) L 18.1 % (20.0-45.0) L Monocytes (%) (Auto) 6.6 % (1.0-10.0) 10.7 % (1.0-10.0) H Eosinophils (%) (Auto) 0.6 % (0.0-3.0) 0.8 % (0.0-3.0) Basophils (%) (Auto) 1.8 % (0.0-2.0) 1.6 % (0.0-2.0) Prothrombin Time 13.4 SEC (9.30-11.50) H Prothromb Time International Ratio 1.3 (0.9-1.1) H Activated Partial Thromboplast Time 20 SEC (23-33) L Sodium Level 135 MMOL/L (136-145) L 134 MMOL/L (136-145) L Potassium Level 4.2 MMOL/L (3.5-5.1) 4.2 MMOL/L (3.5-5.1) Chloride Level 98 MMOL/L (98-107) 101 MMOL/L (98-107) Carbon Dioxide Level 27 MMOL/L (21-32) 27 MMOL/L (21-32) Anion Gap 10 mmol/L (5-15) 6 mmol/L (5-15) Blood Urea Nitrogen 15 mg/dL (7-18) 18 mg/dL (7-18) Creatinine 1.0 MG/DL (0.55-1.30) 1.0 MG/DL (0.55-1.30) Estimat Glomerular Filtration Rate > 60 mL/min (>60) > 60 mL/min (>60) Glucose Level 112 MG/DL (74-106) H 152 MG/DL (74-106) H Calcium Level 8.7 MG/DL (8.5-10.1) 8.7 MG/DL (8.5-10.1) Total Bilirubin 1.0 MG/DL (0.2-1.0) Aspartate Amino Transf (AST/SGOT) 35 U/L (15-37) Alanine Aminotransferase (ALT/SGPT) 36 U/L (12-78) Alkaline Phosphatase 242 U/L (46-116) H Troponin I 0.034 ng/mL (0.000-0.056) Pro-B-Type Natriuretic Peptide 3775 pg/mL (0-125) H Total Protein 8.0 G/DL (6.4-8.2) Albumin 3.2 G/DL (3.4-5.0) L Globulin 4.8 g/dL Albumin/Globulin Ratio 0.7 (1.0-2.7) L Lipase 385 U/L (73-393) Serum Alcohol < 3 mg/dL Urine Color Brown Urine Appearance Clear Urine pH 5 (4.5-8.0) Urine Specific [place] 1.020 (1.005-1.035) Urine Protein 4+ (NEGATIVE) H Urine Glucose (UA) Negative (NEGATIVE) Urine Ketones 1+ (NEGATIVE) H Urine Blood 1+ (NEGATIVE) H Urine Nitrite Negative (NEGATIVE) Urine Bilirubin 1+ (NEGATIVE) H Urine Ictotest Negative (NEGATIVE) Urine Urobilinogen 8 MG/DL (0.0-1.0) H Urine Leukocyte Esterase 2+ (NEGATIVE) H Urine RBC 20-30 /HPF (0 - 2) H Urine WBC 10-15 /HPF (0 - 2) H Urine Squamous Epithelial Cells Moderate /LPF (NONE/OCC) H Urine Bacteria Few /HPF (NONE) Urine Opiates Screen Negative (NEGATIVE) Urine Barbiturates Screen Negative (NEGATIVE) Phencyclidine (PCP) Screen Negative (NEGATIVE) Urine Amphetamines Screen Negative (NEGATIVE) Urine Benzodiazepines Screen Negative (NEGATIVE) Urine Cocaine Screen Positive (NEGATIVE) H Urine Marijuana (THC) Screen Positive (NEGATIVE) H Phosphorus Level 2.5 MG/DL (2.5-4.9) Magnesium Level 1.5 MG/DL (1.8-2.4) L Microbiology Date/Time Source Procedure Growth Status 07/15/19 18:50 Urine,Clean Catch Urine Culture - Preliminary NO GROWTH Resulted Tyler Stewart MD Jul 16, 2019 10:48
--- NOTE | 2019-07-16 11:06 | NUR ---
TRANSFER TO FLOOR: Patient transferred to [facility]. Report and PT given to LINDA Pacheco. Belongings with PT and medications are with the Pharmacy.
--- NOTE | 2019-07-16 11:11 | NUR ---
NURSE NOTES: Received report from LINDA Pardo. Pt in bed, awake, talkative, no complaints of pain, respirations unlabored, talkative, vitals taken, assessment done, discussed plan of care with pt, IVPB Rocephin running, bed in lowest position, call light within reach
--- NOTE | 2019-07-16 11:29 | NUR ---
NURSE NOTES: Pt vitals at time of transfer are 170/110 HR 84, notified Dr. Stewart. stated to give 1045 dose of lisinopril wait 1 hour and recheck BP, if still elevated give PRN
--- NOTE | 2019-07-16 11:34 | NUR ---
NURSE NOTES: Left message for Dr. Eugenia Schulte 1.5
[2019-07-16] MEDS: Lisinopril 20mg tab ORAL SCH (11:52)
--- NOTE | 2019-07-16 14:24 | History & Physical ---
History and Physical History & Physicial Dictated for Int Med-Dr Ardon no. [id number]. Salbador Bello MD Jul 16, 2019 14:24
--- NOTE | 2019-07-16 18:02 | NUR ---
CASE MANAGEMENT: INITIAL REVIEW 58 YO F DON FROM STREET C/O ABD PAIN PMHx: HTN. COPD. ASTHMA. UTI. SI:CHF T 98.1 HR 74 RR 15 B/P 154/100 SATS 97% ON RA LABS: NA 135 GLU 112 ALP 242 BNP 3775 UTOX (+COCAINE AND THC) IS: LASIX IV X1 MACROBID PO X1 PATIENT ADMITTED TO TELE 07/16/2019 @ 0058 DCP: PATIENT TO BE DISCHARGED TO APPROPRIATE LOCATION ONCE MEDICALLY CLEARED PLAN OF CARE: US PARACENTESIS NM STRESS TEST Addendum: 07/16/19 at 2045 by Kristina Vazquez CM INTERQUAL MET
[2019-07-16] MEDS: Magnesium Oxide 400mg tab ORAL SCH (18:17)
--- NOTE | 2019-07-16 19:45 | NUR ---
NURSE NOTES: Received report from Tara Patel RN. Pt in bed, asleep, NSR. BP 151/96, P 86, RR 19, T 98.2, o2 @ 100% on room air. No signs or symptoms of distress noted at this time, pt denies pain. Bed in lowest position, bed alarm armed, side rails up x 2. Left forearm 22g saline locked, flushed with 5ml NS; patent, intact, and asymptomatic. Pt appears to be resting comfortably, will continue to monitor closely.
--- NOTE | 2019-07-16 20:15 | History and Physical Report ---
DATE OF ADMISSION: 07/15/2019 CHIEF COMPLAINT: The patient is a 58-year-old female, who presents with chief complaint of shortness of breath. HISTORY OF PRESENT ILLNESS: The patient was admitted to [facility] on December 19 to 2018 with respiratory failure. Please see history and physical and discharge summary dictated at that time. The patient presented to [facility] complaining of a three-day history of shortness of breath. The patient is somewhat evasive in her answers. The patient apparently had been smoking cocaine over the past few weeks. The patient states she stopped taking her medications approximately three to four months ago. The patient was evaluated in [facility]. The patient is admitted with chief complaint of shortness of breath to rule out congestive heart failure versus chronic obstructive pulmonary disease acute exacerbation. REVIEW OF SYSTEMS: CONSTITUTIONAL: The patient denies weight loss or weight gain. The patient denies fevers or chills. HEENT: The patient denies ear or throat pain. The patient denies headache. CARDIOVASCULAR: The patient denies palpitations or chest pain. CHEST: The patient complains of shortness of breath as above. The patient denies cough. The patient denies wheezes. ABDOMEN: The patient denies nausea, vomiting, diarrhea, or constipation. GENITOURINARY: The patient denies dysuria or increased frequency of urination. NEUROMUSCULAR: The patient denies seizures or generalized weakness. PAST MEDICAL HISTORY: Significant for: 1. Systolic congestive heart failure. 2. Hypertension. 3. Chronic obstructive pulmonary disease. PAST SURGICAL HISTORY: The patient denies. CURRENT MEDICATIONS: The patient is not taking any medications for the last three months. However, the patient was previously on: 1. Aspirin 81 mg one tablet p.o. daily. 2. Atorvastatin 40 mg p.o. daily. 3. Metformin 500 mg p.o. twice daily. ALLERGIES: No known drug allergies. SOCIAL HISTORY: The patient is single and is currently homeless. The patient denies tobacco use having quit four months ago. The patient denies alcohol use. The patient admits to daily cocaine use. The patient states she smokes cocaine. PHYSICAL EXAMINATION: VITAL SIGNS: Temperature 98.1 degrees, respirations 15, pulse 74, blood pressure 154/100, and pulse ox 97% on room air. GENERAL: The patient is well-developed, thin-appearing female, in no apparent distress. HEENT: Eyes, pupils equal and responsive to light and accommodation. Extraocular movements are intact. NECK: Supple without lymphadenopathy. CHEST: Lungs are clear to auscultation bilaterally without wheezes or rales. CARDIOVASCULAR: Regular rate. S1 and S2 are normal without murmurs, rubs, or gallops. ABDOMEN: Soft, slightly distended with positive bowel sounds. No evidence of hepatosplenomegaly. Currently, no rebound or guarding noted. EXTREMITIES: Negative for clubbing, cyanosis, or edema. NEUROLOGICAL: Cranial nerves II through XII are grossly intact without focal deficits. Motor strength is 5/5 bilaterally intact. Deep tendon reflexes are 2+ plantar. LABORATORY DATA: Laboratory studies, WBC 9.5, hemoglobin 14.2, hematocrit 44.9, and platelets 429,000. Sodium 135, potassium 4.2, chloride 98, CO2 27, BUN 15, creatinine 1.0, and glucose 112. BNP elevated at 3775. Troponin 0.034. Urine toxicology was positive for cocaine and marijuana. Urinalysis showed 1+ ketones, 1+ blood, and 1+ bilirubin with 10 to 15 wbcs. ASSESSMENT: This is a 58-year-old female with: 1. Shortness of breath. 2. Acute on chronic congestive heart failure. 3. Hypertension. 4. Chronic obstructive pulmonary disease. 5. Hypercholesterolemia. TREATMENT: 1. Shortness of breath. This may be secondary to congestive heart failure. Cardiology consultation has been obtained with Dr. Tyler Stewart. 2. Congestive heart failure. An echocardiogram is pending. A Cardiology consultation has been obtained with Dr. Tyler Stewart. 3. Hypertension. The patient has been started empirically on lisinopril. 4. Chronic obstructive pulmonary disease. A Pulmonary consultation has been obtained with Dr. Arsalan Noe. 5. Hypercholesterolemia. Continue atorvastatin as above. Salbador Bello M.D. DR: Shirley JOB#: [id number] CC:
--- NOTE | 2019-07-16 20:45 | Consultation ---
DATE OF CONSULTATION: 07/16/2019 CARDIAC CONSULTATION CONSULTING PHYSICIAN: Tyler Stewart M.D. REFERRING PHYSICIAN: Arsalan Noe M.D., and Rambo Ardon M.D. REASON FOR REFERRAL: Congestive heart failure. HISTORY OF PRESENT ILLNESS: This is a middle-aged female, who has history of cardiomyopathy, congestive heart failure, crack cocaine use, and smoking, who presented to the hospital because of 2 days of constant pain and sharp sensation in the center of the chest. She is not able to identify any relieving or exacerbating factor. She denies any change with the pain with twisting, turning, coughing, taking a deep breath, swallowing, sitting, playing, or with activity. She does not feel it as often she states. She does use 2 flat pillows. She does have episodes of PND. She denies any dizziness or lightheadedness on standing. She does walk. PAST MEDICAL HISTORY: Positive for diabetes, high blood pressure, and possibly high cholesterol. The last time she was here, she was diagnosed with cardiomyopathy, ejection fraction of 30% to 35% back in December 2018, and she had also diagnoses of respiratory failure requiring intubation and subsequent extubation, hypertensive urgency, COPD, severe left ventricular systolic dysfunction, pulmonary hypertension, cocaine abuse, pulmonary edema, acute renal failure, altered mentation, and encephalopathy toxic metabolic. ALLERGIES: She denies any allergies to medications. SOCIAL HISTORY: She quit smoking, she is not able to tell me when. She does smoke crack cocaine, the last time was approximately 4 days ago. Denies other substance use. REVIEW OF SYSTEMS: GASTROINTESTINAL: Negative. GENITOURINARY: Negative. PULMONARY: Occasional coughing. No wheezing. CONSTITUTIONAL: No fevers, chills, or night sweats. NEUROLOGIC: Negative. PHYSICAL EXAMINATION: GENERAL: Shows to be a middle-aged female, in no respiratory distress. NECK: Supple. No jugular venous distention. LUNGS: There are decreased breath sounds noted on the right more so than on the left. CARDIAC: Regular rate and rhythm. Systolic ejection murmur is noted. No heaves or thrills. ABDOMEN: Soft and nontender. Positive bowel sounds. EXTREMITIES: There is no edema. NEUROLOGICAL: She is awake, alert, responsive, and not in respiratory distress. LABORATORY AND DIAGNOSTIC DATA: Blood tests, white count 8.8, hemoglobin 13, and platelet count of 429,000. Cardiac enzymes, troponin 0.034 and no other one has been obtained. ProBNP of 3775. Lipase of 385. INR 1.2 and PTT of 30. Urine drug screen positive for cocaine and marijuana. Urinalysis shows 20-30 rbc's, 10-15 wbc's, moderate squamous epis. EKG, sinus rhythm, left axis deviation, left anterior fascicular block, and nonspecific T-wave changes. Does not appear to have any significant changes on the EKG compared to December 19, 2018, EKGs here. ASSESSMENT AND PLAN: 1. Chest pain. 2. Congestive heart failure, acute, systolic. 3. Left ventricular systolic dysfunction. 4. Substance abuse, cocaine. 5. History of tobacco use disorder. 6. History of diabetes mellitus. 7. History of hypertension. 8. Questionable history of hyperlipidemia. This patient was seen in cardiac consultation. The patient obviously has been noncompliant with any medications. Her last medications were administered to her in December. Since then, she has been taking medications occasionally and not on a regular basis. She is noncompliant with medications. She is noncompliant with diet and needs reinforcement for low-sodium and low-fluids diet. Cardiac enzymes will be repeated, echocardiogram will be repeated, and EKG will be repeated in light of the fact that she is complaining of these episodes of chest pain that have been present constantly for approximately 2 days. The first set of cardiac enzymes is negative. In that respect, she was already ruled out from an ischemic point of view. The troponin will be repeated in either case. Chest x-ray has been performed, maybe some effusion on the right side at costophrenic angle. Await final interpretation of the radiologist. There is some cephalization of vasculature, maybe suggestive of some congestive heart failure. She will be getting diuretics and guideline-directed medical therapy if cardiomyopathy again is noted. She should be on CINTHYA inhibitors and she should be on some beta-blockers as well as of course diuretics. Further recommendation depending on the results of the above. Tyler Stewart M.D. : [place] JOB#: [id number] CC:
[2019-07-16] MEDS ORDERED: Atorvastatin 80mg tab ORAL SCH (21:00)
--- NOTE | 2019-07-16 21:00 | NUR ---
NURSE NOTES: Heparin injection held for paracentesis scheduled for tomorrow, 07/17/2019. Charge nurse made aware. Pt appears comfortable, instructed on medication, and verbalized understanding. Will continue to monitor closely.
[2019-07-17] VITALS: BP 153/94
[2019-07-17 04:00] VITALS: BP 149/96
--- NOTE | 2019-07-17 04:44 | NUR ---
NURSE NOTES: Pt refused bed bath, assisted bath, and linen change, stating that she was too tired and would prefer to do these in the morning. A&O x3, pt denies pain at this time. Will continue to monitor.
[2019-07-17] MEDS: NovoLOG Insulin Flexpen SUBQ SCH ×2 (06:30→11:30)
--- NOTE | 2019-07-17 07:21 | NUR ---
NURSE NOTES: Received report from LINDA Langley. Patient is resting in bed in stable condition. No s/sx of SOB, breathing is even and unlabored, on room air. Denies any presence of pain or discomfort at this time. Bed is in lowest position, brakes engaged. Call light is kept within easy reach. Informed patient that they are NPO and are ordered not to have chocolate or caffeine due to treadmill cardiac stress test and US paracentesis, patient verbalized understanding. Will continue to monitor patient.
[2019-07-17 07:37] LABS: BASOPHILS % (AUTO) 1.3 % (0.0-2.0); EOSINOPHILS % (AUTO) 1.8 % (0.0-3.0); HEMATOCRIT 41.8 % (37.0-47.0); HEMOGLOBIN 13.4 G/DL (12.0-16.0); LYMPHOCYTES % (AUTO) 18.2 % (20.0-45.0); MEAN CORPUSCULAR VOLUME 79 FL (80-99); MONOCYTES % (AUTO) 10.2 % (1.0-10.0); NEUTROPHILS % (AUTO) 68.6 % (45.0-75.0); PLATELET COUNT 449 K/UL (150-450); RED BLOOD COUNT 5.28 M/UL (4.20-5.40); RED CELL DISTRIBUTION WIDTH 20.3 % (11.6-14.8); WHITE BLOOD COUNT 8.1 K/UL (4.8-10.8)
--- NOTE | 2019-07-17 07:46 | NUR ---
HAND-OFF: Report given to Ricco Pratt RN. Pt is stable, in bed. NSR.
[2019-07-17 08:00] VITALS: BP 153/93
[2019-07-17] MEDS: Heparin 5000 units/ml inj SUBQ SCH (08:02)
[2019-07-17] MEDS: Lisinopril 20mg tab ORAL SCH (08:24)
[2019-07-17] MEDS: Aspirin EC 81mg tab ORAL SCH (08:24)
[2019-07-17 08:25] LABS: ANION GAP 6 mmol/L (5-15); BLOOD UREA NITROGEN 18 mg/dL (7-18); CALCIUM 9.3 MG/DL (8.5-10.1); CARBON DIOXIDE 28 MMOL/L (21-32); CHLORIDE 101 MMOL/L (98-107); CHOLESTEROL 124 MG/DL (< 200); HDL CHOLESTEROL 31 MG/DL (40-60); POTASSIUM 3.9 MMOL/L (3.5-5.1); SODIUM 135 MMOL/L (136-145); TRIGLYCERIDES 62 MG/DL (30-150)
[2019-07-17] MEDS: Magnesium Oxide 400mg tab ORAL SCH (08:26)
--- NOTE | 2019-07-17 09:37 | NUR ---
*-* NO INSURANCE INFORMATION IN THE BAR UNABLE TO SEND CLINICALS OR REVIEWS *-*
[2019-07-17] MEDS: cefTRIAXone 1 GM in D5W 55 ML IVPB SCH (10:00)
--- NOTE | 2019-07-17 10:51 | Consultation ---
Consult Note Consult Note HPI: 58yo woman with PMH COPD, pulm HTN, cocaine abuse, CHF, HTN presents with 3 days of SOB, abdominal distension, LE swelling. No fever, chills. Pt is currently walking around her room and the hallway saying she is hungry. She is currently NPO for paracentesis. Pt states that her breathing is better. States that her legs do not feel swollen currently. She continues to deny previous or current cough, fever, chills, dysuria, diarrhea. ROS: per HPI PMH: per HPI Meds: reviewed NKDA FHx: noncontributory SHx: homeless. cigarette use. substance abuse. PE: VS: afebrile Gen: NAD CV: RRR Resp: RRR. unlabored. no wheezes or crackles. Abd: normoactive BS+. Soft. slightly distended. no TTP Ext: no LE edema Neuro: alert. interactive Labs: WBC 8 Assessment/Recommendation: 58yo woman with PMH CHF, COPD, pulm HTN, cocaine abuse presents with 3 days of SOB, abdominal distension and LE swelling. ID consulted for antimicrobial recommendation. Afebrile No leukocytosis UTI vs asymptomatic bacteriuria no dysuria, suprapubic pain UA 10-15 WBC with contaminated with 10-15 WBC, cx mixed GP PNA? SOB without cough, resolved with diuresis 07/14 CXR: Increasing density in the right base, which may represent atelectasis but pneumonia should be excluded clinically. Cardiomegaly and suggestion of pulmonary arterial hypertension. Cocaine positive Marijuana positive COPD Tobacco abuse cocaine abuse Pulm HTN CHF HTN homeless Plan: Ceftriaxone #2 07/15 SP Nitrofurantoin #1 f/u paracentesis result aspiration precaution, elevate HOB recommend substance abuse counseling Thank you for this consult. [facility] will continue to follow the patient with you. Holden Haque MD Jul 17, 2019 10:51
--- NOTE | 2019-07-17 11:37 | Pulmonology Progress Note ---
Assessment/Plan Problems: (1) UTI (urinary tract infection) (2) Pulmonary hypertension, moderate to severe (3) Basal ganglia infarction (4) Cocaine abuse (5) Severe left ventricular systolic dysfunction Assessment/Plan stress test pending US of abdomen pending symptomatic treatment Subjective ROS Limited/Unobtainable: No Constitutional: Reports: no symptoms HEENT: Repors: no symptoms Respiratory: Reports: no symptoms Allergies: Coded Allergies: No Known Allergies (Unverified , 05/17/18) Objective Last 24 Hour Vital Signs Date Time Temp Pulse Resp B/P (MAP) Pulse Ox O2 Delivery O2 Flow Rate FiO2 07/17/19 09:00 Room Air 07/17/19 08:00 97.5 75 18 153/93 (113) 100 07/17/19 04:00 17 149/96 (113) 99 07/17/19 03:43 78 07/17/19 00:00 98.2 81 18 153/94 (113) 100 07/17/19 00:00 78 07/16/19 21:00 Room Air 07/16/19 20:00 98.2 84 19 151/96 (114) 100 07/16/19 20:00 86 07/16/19 16:27 85 07/16/19 15:48 98.2 78 18 137/80 (99) 100 07/16/19 14:35 176/115 07/16/19 14:31 80 176/115 (135) 07/16/19 11:57 85 07/16/19 11:52 170/110 Intake and Output 07/16/19 07/17/19 19:00 07:00 Intake Total 240 ml Balance 240 ml Intake Oral 240 ml # Voids 2 2 # Bowel Movements 1 1 General Appearance: WD/WN HEENT: normocephalic, atraumatic Respiratory/Chest: chest wall non-tender, lungs clear Breasts: no masses Cardiovascular: normal rate Abdomen: soft, non tender, no organomegaly Genitourinary: normal external genitalia Skin: no rash Microbiology Date/Time Source Procedure Growth Status 07/15/19 18:50 Urine,Clean Catch Urine Culture - Preliminary Mixed Gram Positive Organism Resulted 07/16/19 16:30 Rectum Received Laboratory Tests 07/16/19 12:05: Troponin I 0.032 07/17/19 05:54: Troponin I 0.027, White Blood Count 8.1, Red Blood Count 5.28, Hemoglobin 13.4, Hematocrit 41.8, Mean Corpuscular Volume 79L, Mean Corpuscular Hemoglobin 25.3L , Mean Corpuscular Hemoglobin Concent 31.9L, Red Cell Distribution Width 20.3H, Platelet Count 449, Mean Platelet Volume 5.5L, Neutrophils (%) (Auto) 68.6, Lymphocytes (%) (Auto) 18.2L, Monocytes (%) (Auto) 10.2H, Eosinophils (%) (Auto ) 1.8, Basophils (%) (Auto) 1.3, Sodium Level 135L, Potassium Level 3.9, Chloride Level 101, Carbon Dioxide Level 28, Anion Gap 6, Blood Urea Nitrogen 18 , Creatinine 1.0, Estimat Glomerular Filtration Rate > 60, Glucose Level 111H, Calcium Level 9.3, Pro-B-Type Natriuretic Peptide 2845H, Triglycerides Level 62 , Cholesterol Level 124, LDL Cholesterol 87, HDL Cholesterol 31L, Cholesterol/ HDL Ratio 4.0 Current Medications Medications (Trade) Dose Ordered Sig/Alisia Route PRN Reason Start Time Stop Time Status Last Admin Dose Admin Acetaminophen/ Hydrocodone Bitart ([place] 5/325) 1 tab Q6H PRN ORAL For Pain 07/16/19 02:00 07/23/19 01:59 Aspirin (Ecotrin) 81 mg DAILY ORAL 07/16/19 09:00 08/15/19 08:59 07/16/19 09:35 Atorvastatin Calcium (Lipitor) 40 mg BEDTIME ORAL 07/16/19 21:00 08/15/19 20:59 07/16/19 21:33 Ceftriaxone Sodium 1 gm/ Dextrose 55 ml @ 110 mls/hr Q24H IVPB 07/16/19 10:00 07/23/19 09:59 07/16/19 10:48 Dextrose (Dextrose 50%) 25 ml Q30M PRN IV Hypoglycemia 07/16/19 01:45 08/15/19 01:44 Dextrose (Dextrose 50%) 50 ml Q30M PRN IV Hypoglycemia 07/16/19 01:45 08/15/19 01:44 Furosemide (Lasix) 20 mg BID IV 07/16/19 18:00 08/15/19 17:59 07/17/19 08:26 Heparin Sodium (Porcine) (Heparin 5000 units/ml) 5,000 units EVERY 12 HOURS SUBQ 07/16/19 09:00 08/15/19 08:59 07/16/19 09:37 Hydralazine HCl (Apresoline) 20 mg Q4H PRN IV SBP more than 160mmHg 07/16/19 09:15 08/15/19 09:14 07/16/19 14:35 Insulin Aspart (NovoLOG) BEFORE MEALS AND HS SUBQ 07/16/19 06:30 08/15/19 06:29 07/16/19 17:05 Labetalol HCl (Normodyne) 20 mg Q1H PRN IV sbp more than 180mmHg 07/16/19 09:15 08/15/19 09:14 Lisinopril (Prinivil) 20 mg DAILY ORAL 07/16/19 10:45 08/15/19 10:44 07/16/19 11:52 Magnesium Oxide (Mag-Ox 400mg) 400 mg THREE TIMES A DAY ORAL 07/16/19 18:00 07/17/19 18:30 07/17/19 08:26 Morphine Sulfate (Morphine Sulfate) 2 mg Q4H PRN IVP For Pain 07/16/19 02:00 07/23/19 01:59 Ondansetron HCl (Zofran) 4 mg EVERY 4 HOURS PRN IVP Nausea & Vomiting 07/16/19 02:00 08/15/19 01:59 Arsalan Noe MD Jul 17, 2019 11:37
--- NOTE | 2019-07-17 12:16 | Cardiology Report ---
APPROVED REPORT EXAM: Two-dimensional and M-mode echocardiogram with Doppler and color Doppler. INDICATION Chest Pain M-Mode DIMENSIONS IVSd0.8 (0.7-1.1cm)Left Atrium (MM)3.6 (1.6-4.0cm) LVDd4.8 (3.5-5.6cm)Aortic Root2.6 (2.0-3.7cm) PWd0.8 (0.7-1.1cm)Aortic Cusp Exc.1.4 (1.5-2.0cm) IVSs1.1 cm LVDs3.9 (2.5-4.0cm) PWs1.2 cm Normal left ventricular chamber size. Global left ventricular hypokinesis, except the septal wall which is dyskinetic. Left ventricular ejection fraction estimated to be 25-30%. Mild left ventricular hypertrophy . Mild left atrial enlargemnet. Mild right atrial enlargement . Right ventricular chamber sizes is within normal limits. Focal aortic valve sclerosis with adequate cusp excursion. Thickened mitral valve leaflets with normal excursion. Mitral annulus and aortic root calcification. Normal pulmonic valve structure. Normal tricuspid valve structure. IVC dilated at 2.7 cm without physiologic collapse suggestive of increased RA pressure. A color flow and spectral Doppler study was performed and revealed: Mild aortic insufficiency. Severe mitral regurgitation. Mitral inflow velocities indicates possible pseudo normalization pattern implying moderately elevated left atrial pressure (Grade II ) Severe tricuspid regurgitation. Tricuspid systolic velocities suggests peak right ventricular systolic pressure of 60 mmHg,consistent with severe pulmonary hypertension.
--- NOTE | 2019-07-17 12:30 | NUR ---
NURSE NOTES: Patient voiced to this nurse that they would like to leave hospital. Explained to patient if would like to leave, will be leaving hospital against medical advice. Explained to patient risks and possible negative outcomes of leaving AMA x 3. Patient verbalized understanding and signed Against Medical Advice form. Form placed in chart. Dr. Ardon and Dr. Noe made aware. Charge nurse made aware. Nurse phosphatic fertilizer supervisor made aware and went to patient's bedside with security to return patient's monies placed in safe. Patient left hospital with all belongings. Noted.
--- NOTE | 2019-07-17 12:30 | NUR ---
NURSE NOTES: Patient left AMA before taking home medications stored in pharmacy. Informed pharmacy personnel of situation, patient does not have a contact number. Per pharmacy personnel will keep patient's medications in pharmacy for 30 days. Charge nurse made aware. Noted.
--- NOTE | 2019-07-17 15:05 | NUR ---
CASE MANAGEMENT: INITIAL REVIEW 07/17/19 PMHx: HTN. COPD. ASTHMA. UTI. SI:CHF PMHx: HTN. COPD. ASTHMA. UTI. 97.5 75 105 153/93 100% ON RA BNP 2845 (+COCAINE AND THC) IS: IV CEFTRIAXONE Q24HR IV LASIX BID MAG-OX PO TID PRINIVIL PO QD HEPARIN SQ Q12HR : 2E TELE UNIT DCP: PATIENT TO BE DISCHARGED TO APPROPRIATE LOCATION ONCE MEDICALLY CLEARED PLAN OF CARE: US PARACENTESIS NM STRESS TEST PATIENT LEFT AMA @1230 Addendum: 07/17/19 at 1511 by VICKY CASEY LVN CASE MANAGEMENT: REVIEW 07/17/19 PMHx: HTN. COPD. ASTHMA. UTI. SI:CHF PMHx: HTN. COPD. ASTHMA. UTI. 97.5 75 105 153/93 100% ON RA BNP 2845 (+COCAINE AND THC) IS: IV CEFTRIAXONE Q24HR IV LASIX BID MAG-OX PO TID PRINIVIL PO QD HEPARIN SQ Q12HR : 2E TELE UNIT DCP: PATIENT TO BE DISCHARGED TO APPROPRIATE LOCATION ONCE MEDICALLY CLEARED PLAN OF CARE: US PARACENTESIS NM STRESS TEST PATIENT LEFT AMA @1230
--- NOTE | 2019-07-17 15:18 | Diagnostic Imaging Report ---
Indication: Abdominal distention Technique: Grayscale and duplex Doppler imaging of the abdomen performed for assessment of ascites. Comparison: None Findings: There is mild ascites in all 4 quadrants. IMPRESSION: Mild ascites
--- NOTE | 2019-07-17 15:43 | NUR ---
NURSE NOTES: Patient returned for medications that were stored in pharmacy. Signed medications out of pharmacy and returned to patient. Noted.
--- NOTE | 2019-07-17 16:20 | Diagnostic Imaging Report ---
Indication: chest pain Technique: The study was conducted under the supervision of a assistant executive housekeeper. Intravenous administration of 10.8 mCi of technetium 99m Myoview was performed. Three plane SPECT imaging of the heart was then performed. Patient refused the stress portion of the examination and left AGAINST MEDICAL ADVICE. Comparison: None Findings: Resting SPECT images show no definite perfusion defect. IMPRESSION: Incomplete study
[2019-07-17] MEDS ORDERED: AMOXICILLIN500 MG ORAL (16:45)
--- NOTE | 2019-07-18 07:28 | Cardiology Report ---
APPROVED REPORT EKG Measurement Heart [id number] Normal sinus rhythm Biatrial enlargement Left axis deviation Inferior infarct, age undetermined Abnormal ECG
--- NOTE | 2019-07-18 07:30 | Cardiology Report ---
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
== END 2019-07-17 12:30 | disposition left against medical advice (07) ==
LOC: EDBD 18:11 → EMR 18:25 → 2W 22:05 → EDBEDREQ 23:05 → 2W 07-16 00:22 → 2E 07-16 10:57
DX: I11.0 Hypertensive heart disease with heart failure (principal); J44.9 Chronic obstructive pulmonary disease, unspecified; I50.21 Acute systolic (congestive) heart failure; R07.9 Chest pain, unspecified; I27.20 Pulmonary hypertension, unspecified; I50.9 Heart failure, unspecified; F14.10 Cocaine abuse, uncomplicated; F12.90 Cannabis use, unspecified, uncomplicated; R14.0 Abdominal distension (gaseous); R22.43 Localized swelling, mass and lump, lower limb, bilateral; E78.5 Hyperlipidemia, unspecified; E11.9 Type 2 diabetes mellitus without complications; N39.0 Urinary tract infection, site not specified; Z79.84 Long term (current) use of oral hypoglycemic drugs; E78.00 Pure hypercholesterolemia, unspecified; Z59.0 Homelessness; Z79.82 Long term (current) use of aspirin; Z86.73 Personal history of transient ischemic attack (TIA), and cerebral infarction without residual deficits; I45.10 Unspecified right bundle-branch block; F17.200 Nicotine dependence, unspecified, uncomplicated; R18.8 Other ascites
CPT/HCPCS: 36415; 71045; 74018; 76705; 78451; 80048; 80053; 80061; 80307; 81003; 82962; 83690; 83735; 83880; 84100; 84484; 85025; 85610; 85730; 87081; 87086; 93005; 93306; 96365; 96374; 96376; A4641; G0480; J0360; J0696; J1644; J1815; J1940; Z7502; 99285; G0378

== ENCOUNTER 2019-07-17 15:58 | Emergency (ER) | payer OTHER ==
[~2019-07-17] VITALS: Ht 160 cm; Wt 49.9 kg
[~2019-07-17 15:58] MED LIST changes: +ASPIRIN EC81 MG ORAL; +LIPITOR40 MG ORAL; +METFORMIN HCL500 M1 ORAL; +PREDNISOLO15 MG/5 M1 ORAL
[2019-07-17 16:26] VITALS: BP 151/79
--- NOTE | 2019-07-17 16:27 | NUR ---
ED Nurse Note:pt. came with c/o sore throat for a few days, mini-cog was done
--- NOTE | 2019-07-17 16:44 | Emergency Room Report ---
History of Present Illness General Chief Complaint: Sore Throat Source: Patient Present Illness HPI 58-year-old female with history of congestive heart failure who was recently hospitalized at [facility] and left AMA a day ago here complaining denies fever chills. Denies all other URI symptoms, cough and congestion. Patient has no complaint regarding her heart failure. Reports that she left AGAINST MEDICAL ADVICE as nothing was being done for her. My supervising physician Dr. Mata contacted the primary care physician and the admitting doctor, Dr Ardon, and was decided that okay to discharge the patient. Patient presents with slightly elevated blood pressure however denies chest pain, shortness of breath, headache and dizziness has not taken any medication for symptom relief. Allergies: Coded Allergies: No Known Allergies (Unverified , 05/17/18) Patient History Past Medical History: see triage record Past Surgical History: unable to obtain Pertinent Family History: none Last Menstrual Period: 2014 Now: No : 3 Para: 3 Immunizations: UTD Reviewed Nursing Documentation: PMH: Agreed; PSxH: Agreed Nursing Documentation-PMH Past Medical History: No Stated History Hx Cardiac Problems: Yes Hx Hypertension: Yes Hx Asthma: Yes Hx COPD: Yes Hx Cancer: No Hx Gastrointestinal Problems: Yes Hx Neurological Problems: No Review of Systems All Other Systems: negative except mentioned in HPI Physical Exam Vital Signs Date Time Temp Pulse Resp B/P (MAP) Pulse Ox O2 Delivery O2 Flow Rate FiO2 07/17/19 16:01 98.4 85 16 151/79 (103) 95 Sp02 EP Interpretation: reviewed, abnormal General Appearance: no apparent distress, alert, GCS 15, non-toxic Head: normocephalic, atraumatic Eyes: bilateral eye normal inspection, bilateral eye PERRL ENT: hearing grossly normal, no angioedema, normal voice, TMs + canals normal, tonsillar exudate - Bilateral tonsillar swelling as well as exudate Neck: full range of motion, no meningismus, no bony tend, no carotid bruits, supple/symm/no masses Respiratory: chest non-tender, lungs clear, normal breath sounds, no rhonchi, no respiratory distress, no retraction, no wheezing, speaking full sentences Cardiovascular #1: regular rate, rhythm, no edema, no murmur, normal capillary refill Gastrointestinal: normal bowel sounds, non tender, soft, non-distended, no guarding, no rebound Rectal: deferred Genitourinary: no CVA tenderness Musculoskeletal: back normal, gait/station normal, normal range of motion, non- tender Neurologic: alert, oriented x3, responsive, motor strength/tone normal, sensory intact, speech normal Psychiatric: judgement/insight normal, memory normal, mood/affect normal, no suicidal/homicidal ideation Skin: no rash Lymphatic: adenopathy - Anterior cervical Medical Decision Making PA Attestation All my diagnosis and treatment plans were reviewed ad discussed with my supervising physician Dr. Mata Diagnostic Impression: Primary Impression: Strep pharyngitis ER Course 58-year-old female with history of congestive heart failure who was recently hospitalized at [facility] and left AMA a day ago here complaining denies fever chills. Denies all other URI symptoms, cough and congestion. Patient has no complaint regarding her heart failure. Reports that she left AGAINST MEDICAL ADVICE as nothing was being done for her. My supervising physician Dr. Mata contacted the primary care physician and the admitting doctor, Dr Ardon, and was decided that okay to discharge the patient. Patient presents with slightly elevated blood pressure however denies chest pain, shortness of breath, headache and dizziness has not taken any medication for symptom relief. Ddx considered but are not limited to: strep pharyngitis, URI, tonsillitis, peritonsillar abscess, influneza Vital signs: are WNL, pt. is afebrile H&PE are most consistent with: Strep pharyngitis ORDERS: Amoxicillin ED INTERVENTIONS: None required at this time. DISCHARGE: At this time pt. is stable for d/c to home. Will provide printed patient care instructions, and any necessary prescriptions. Care plan and follow up instructions have been discussed with the patient prior to discharge. Patient to follow-up with her primary care provider, if worsening symptoms return to the emergency room Last Vital Signs Date Time Temp Pulse Resp B/P (MAP) Pulse Ox O2 Delivery O2 Flow Rate FiO2 07/17/19 16:26 98.4 16 151/79 95 07/17/19 16:01 85 Disposition: HOME, SELF-CARE Condition: Stable Scripts Amoxicillin* (AMOXIL*) 500 Mg Capsule 500 MG ORAL EVERY 12 HOURS for 10 Days, #20 CAP Prov: Rufino Quiroga 07/17/19 Patient Instructions: Strep Throat Additional Instructions: Take medication as directed, follow-up with your primary care provider, if worsening symptoms return to emergency room. Rufino Quiroga Jul 17, 2019 16:44
[2019-07-17] MEDS ORDERED: AMOXICILLIN500 MG ORAL (16:45)
--- NOTE | 2019-07-17 16:55 | NUR ---
ER DISCHARGE NOTE: Patient is cleared to be discharged per ERMD, pt is aox4, on room air, with stable vital signs. pt was given dc and prescription instructions, pt was able to verbalize understanding, pt is able to ambulate with steady gait. pt took all belongings.
[2019-07-17 18:14] VITALS: BP 151/79
== END 2019-07-17 17:00 | disposition home or self-care (01) ==
LOC: EMR 16:45
DX: J02.0 Streptococcal pharyngitis (principal); I11.0 Hypertensive heart disease with heart failure; I50.9 Heart failure, unspecified; J44.9 Chronic obstructive pulmonary disease, unspecified
CPT/HCPCS: 99282

== ENCOUNTER 2020-04-24 22:05 | Emergency (ER) | payer OTHER ==
[~2020-04-24] VITALS: Ht 167.6 cm; Wt 54.4 kg
[~2020-04-24 22:05] MED LIST changes: +AMOXICILLIN500 MG ORAL
[2020-04-24] MEDS ORDERED: Morphine Sulfate 2mg/ml Inj(IV/IM USE ONLY) IVP ONE (22:30)
--- NOTE | 2020-04-24 22:40 | Emergency Room Report ---
History of Present Illness General Chief Complaint: Abdominal Pain Present Illness HPI Disclaimer: Please note that this report is being documented using DRAGON technology. This can lead to erroneous entry secondary to incorrect interpretation by the dictating instrument. HPI: 59-year-old female history of hypertension asthma and COPD, cocaine abuse, CHF presented for abdominal pain and distention. She states her abdomen has been distended for the past few weeks. But complaining of abdominal pain today with some nausea and vomiting. Denies fever. Reports a chronic cough. No fever. No urinary complaints. Patient does report diarrhea. No sick contacts or recent travel. Last hospitalization was 1 month ago. Allergies: Coded Allergies: No Known Allergies (Unverified , 05/17/18) COVID-19 Screening Contact w/high risk pt: No Experienced COVID-19 symptoms?: No COVID-19 Testing performed GUEST ROOM INSPECTOR: No Patient History Reviewed Nursing Documentation: PMH: Agreed; PSxH: Agreed Nursing Documentation-PMH Hx Cardiac Problems: Yes Hx Hypertension: Yes Hx Asthma: Yes Hx COPD: Yes Hx Cancer: No Hx Gastrointestinal Problems: Yes Hx Neurological Problems: No Review of Systems All Other Systems: negative except mentioned in HPI Physical Exam Vital Signs Date Time Temp Pulse Resp B/P (MAP) Pulse Ox O2 Delivery O2 Flow Rate FiO2 04/24/20 22:08 98.6 100 20 166/90 (115) 99 Room Air Sp02 EP Interpretation: reviewed, normal General Appearance: no apparent distress, Chronically Ill Head: normocephalic, atraumatic Eyes: bilateral eye PERRL, bilateral eye EOMI ENT: hearing grossly normal, moist mucus membranes Neck: full range of motion, supple Respiratory: lungs clear, normal breath sounds, no rhonchi, no respiratory distress, no retraction, no wheezing Cardiovascular #1: normal peripheral pulses, no murmur, tachycardia Gastrointestinal: no guarding, distended, tenderness - Mild diffuse tenderness , reducible umbilical hernia Musculoskeletal: other - Bilateral lower extremity edema noted Neurologic: alert, oriented x3, no focal defects Skin: normal color, warm/dry Medical Decision Making Diagnostic Impression: Primary Impression: Colitis Additional Impressions: Anasarca Ascites Bilateral pleural effusion Uncontrolled hypertension ER Course MDM: Differential diagnosis included but not limited to ascites, obstruction, CHF, colitis, diverticulitis, UTI to name a few Clinical course-IV inserted cardiac monitoring pulse oximetry. Laboratory studies were sent CT scan of the abdomen pelvis ordered. CT scan demonstrated evidence of possible colitis in addition to ascites. Patient has no history of paracentesis in the past. She has a history of CHF which may be causing her ascites. She denies a history of cirrhosis. In the ER she was given IV antibiotics pain control antiemetics and antihypertensives. I believe she does require admission the hospital for possible evaluation for paracentesis IV antibiotics and observation. Due to insurance patient will be transferred outside facility. Case discussed and accepted by Dr. Swanson. Urine drug screen was positive for amphetamines, cocaine Labs - Laboratory Tests Test 04/24/20 22:20 04/24/20 22:25 04/24/20 23:44 White Blood Count 8.5 K/UL (4.8-10.8) Red Blood Count 5.48 M/UL (4.20-5.40) H Hemoglobin 13.0 G/DL (12.0-16.0) Hematocrit 42.5 % (37.0-47.0) Mean Corpuscular Volume 78 FL (80-99) L Mean Corpuscular Hemoglobin 23.6 PG (27.0-31.0) L Mean Corpuscular Hemoglobin Concent 30.5 G/DL (32.0-36.0) L Red Cell Distribution Width 21.4 % (11.6-14.8) H Platelet Count 407 K/UL (150-450) Mean Platelet Volume 6.3 FL (6.5-10.1) L Neutrophils (%) (Auto) 80.5 % (45.0-75.0) H Lymphocytes (%) (Auto) 9.2 % (20.0-45.0) L Monocytes (%) (Auto) 7.1 % (1.0-10.0) Eosinophils (%) (Auto) 1.4 % (0.0-3.0) Basophils (%) (Auto) 1.8 % (0.0-2.0) Prothrombin Time 13.5 SEC (9.30-11.50) H Prothrombin Time INR 1.2 (0.9-1.1) H Activated Partial Thromboplast Time 26 SEC (23-33) Sodium Level 134 MMOL/L (136-145) L Potassium Level 3.9 MMOL/L (3.5-5.1) Chloride Level 100 MMOL/L (98-107) Carbon Dioxide Level 24 MMOL/L (21-32) Anion Gap 10 mmol/L (5-15) Blood Urea Nitrogen 19 mg/dL (7-18) H Creatinine 1.4 MG/DL (0.55-1.30) H Estimated Glomerular Filtration Rate 46.3 mL/min (>60) Glucose Level 137 MG/DL (74-106) H Calcium Level 8.9 MG/DL (8.5-10.1) Total Bilirubin 1.3 MG/DL (0.2-1.0) H Direct Bilirubin 0.5 MG/DL (0.0-0.3) H Aspartate Amino Transferase (AST) 30 U/L (15-37) Alanine Aminotransferase (ALT) 28 U/L (12-78) Alkaline Phosphatase 207 U/L (46-116) H Pro-B-Type Natriuretic Peptide 3578 pg/mL (0-125) H Total Protein 8.1 G/DL (6.4-8.2) Albumin 2.8 G/DL (3.4-5.0) L Globulin 5.3 g/dL Albumin/Globulin Ratio 0.5 (1.0-2.7) L Lipase 115 U/L (73-393) Ammonia 54 umol/L (11-32) H Urine Color Yellow Urine Appearance Clear Urine pH 5 (4.5-8.0) Urine Specific [place] 1.025 (1.005-1.035) Urine Protein 4+ (NEGATIVE) H Urine Glucose (UA) Negative (NEGATIVE) Urine Ketones Negative (NEGATIVE) Urine Blood 1+ (NEGATIVE) H Urine Nitrite Negative (NEGATIVE) Urine Bilirubin 1+ (NEGATIVE) H Urine Ictotest Positive (NEGATIVE) Urine Urobilinogen 4 MG/DL (0.0-1.0) H Urine Leukocyte Esterase 1+ (NEGATIVE) H Urine RBC 2-4 /HPF (0 - 2) H Urine WBC 0-2 /HPF (0 - 2) Urine Squamous Epithelial Cells Moderate /LPF (NONE/OCC) H Urine Bacteria Few /HPF (NONE) Urine Opiates Screen Positive (NEGATIVE) H Urine Barbiturates Screen Negative (NEGATIVE) Phencyclidine (PCP) Screen Negative (NEGATIVE) Urine Amphetamines Screen Positive (NEGATIVE) H Urine Benzodiazepines Screen Negative (NEGATIVE) Urine Cocaine Screen Positive (NEGATIVE) H Urine Marijuana (THC) Screen Positive (NEGATIVE) H EKG Diagnostic Results Rate: tachycardiac ST Segments: other - Sinus tachycardia left atrial enlargement left anterior fascicular block Rhythm Strip Diag. Results EP Interpretation: yes Rate: 108 Rhythm: other - Sinus tachycardia Chest X-Ray Diagnostic Results Chest X-Ray Diagnostic Results : Chest X-Ray Ordered: Yes # of Views/Limited/Complete: 1 View Indication: Shortness of Breath EP Interpretation: Yes Interpretation: other - Cardiomegaly pulmonary vascular congestion, small pleural effusion CT/MRI/US Diagnostic Results CT/MRI/US Diagnostic Results : Imaging Test Ordered: CT scan abdomen and pelvis Impression IMPRESSION: 1. Overall limited exam due to significant ascites and lack of contrast. 2. Severe cardiomegaly, mild pericardial effusion, and right greater than left pleural effusions. 3. Severe ascites. Anasarca. 4. Thickened ascending and descending colon, correlate with under distention versus colitis. 5. Colonic diverticulosis without diverticulitis. 6. Mildly cirrhotic liver. Last Vital Signs Date Time Temp Pulse Resp B/P (MAP) Pulse Ox O2 Delivery O2 Flow Rate FiO2 04/24/20 22:08 98.6 100 20 166/90 (115) 99 Room Air Disposition: SHORT-TERM HOSP Condition: Serious Referrals: [facility],REFERRING (PCP) Reed Balderrama M.D. Apr 24, 2020 22:40
[2020-04-24 22:55] VITALS: BP 168/99
[2020-04-24 23:03] LABS: BASOPHILS % (AUTO) 1.8 % (0.0-2.0); EOSINOPHILS % (AUTO) 1.4 % (0.0-3.0); HEMATOCRIT 42.5 % (37.0-47.0); LYMPHOCYTES % (AUTO) 9.2 % (20.0-45.0); MEAN CORPUSCULAR VOLUME 78 FL (80-99); MONOCYTES % (AUTO) 7.1 % (1.0-10.0); NEUTROPHILS % (AUTO) 80.5 % (45.0-75.0); PLATELET COUNT 407 K/UL (150-450); RED BLOOD COUNT 5.48 M/UL (4.20-5.40); RED CELL DISTRIBUTION WIDTH 21.4 % (11.6-14.8); WHITE BLOOD COUNT 8.5 K/UL (4.8-10.8)
[2020-04-24 23:06] LABS: ANION GAP 10 mmol/L (5-15); BLOOD UREA NITROGEN 19 mg/dL (7-18); CALCIUM 8.9 MG/DL (8.5-10.1); CARBON DIOXIDE 24 MMOL/L (21-32); CHLORIDE 100 MMOL/L (98-107); CREATININE 1.4 MG/DL (0.55-1.30); POTASSIUM 3.9 MMOL/L (3.5-5.1); SODIUM 134 MMOL/L (136-145)
[2020-04-24 23:08] LABS: INR 1.2 (0.9-1.1)
--- NOTE | 2020-04-24 23:14 | Diagnostic Imaging Report ---
EXAM: CT Abdomen and Pelvis Without Intravenous Contrast CLINICAL HISTORY: ABD PAIN TECHNIQUE: Axial computed tomography images of the abdomen and pelvis without intravenous contrast. CTDI is 5.5 mGy and DLP is 286.80 mGy-cm. One or more of the following dose reduction techniques were used: automated exposure control, adjustment of the mA and/or kV according to patient size, use of iterative reconstruction technique. COMPARISON: No relevant prior studies available. FINDINGS: Lung bases: Severe cardiomegaly. Mild pericardial effusion. Mild right and trace left pleural effusion. ABDOMEN: Liver: Mildly nodular. Gallbladder and bile ducts: Unremarkable. Pancreas: No ductal dilation. Spleen: Unremarkable. Adrenals: Unremarkable. Kidneys and ureters: No obstructing stones. No hydronephrosis. Stomach and bowel: No bowel obstruction. Thickened ascending and descending colon. Mild hiatal hernia. Colonic diverticulosis. PELVIS: Appendix: No evidence of appendicitis. Bladder: No stones. Reproductive: Unremarkable. ABDOMEN and PELVIS: Intraperitoneal space: Severe ascites. Bones/joints: No acute fractures. Soft tissues: Diffuse soft tissue stranding. Vasculature: No abdominal aortic aneurysm. Lymph nodes: No enlarged lymph nodes. IMPRESSION: 1. Overall limited exam due to significant ascites and lack of contrast. 2. Severe cardiomegaly, mild pericardial effusion, and right greater than left pleural effusions. 3. Severe ascites. Anasarca. 4. Thickened ascending and descending colon, correlate with under distention versus colitis. 5. Colonic diverticulosis without diverticulitis. 6. Mildly cirrhotic liver.
[2020-04-24 23:16] LABS: ALANINE AMINOTRANSFERASE 28 U/L (12-78); ALBUMIN 2.8 G/DL (3.4-5.0); ALBUMIN/GLOBULIN RATIO 0.5 (1.0-2.7); ALKALINE PHOSPHATASE 207 U/L (46-116); ASPARTATE AMINO TRANSFERASE 30 U/L (15-37); BILIRUBIN,TOTAL 1.3 MG/DL (0.2-1.0)
[2020-04-24 23:19] LABS: BILIRUBIN,DIRECT 0.5 MG/DL (0.0-0.3)
[2020-04-24 23:50] LABS: APPEARANCE,URINE CLEAR; BILIRUBIN, URINE 1+ (NEGATIVE); GLUCOSE, URINE (UA) NEGATIVE (NEGATIVE); KETONES,URINE NEGATIVE (NEGATIVE); LEUKOCYTE ESTERASE ,URINE 1+ (NEGATIVE); NITRITE,URINE NEGATIVE (NEGATIVE); PH,URINE 5 (4.5-8.0); PROTEIN,URINE 4+ (NEGATIVE); UROBILINOGEN,URINE 4 MG/DL (0.0-1.0)
--- NOTE | 2020-04-24 23:52 | Diagnostic Imaging Report ---
EXAM: XR Chest, 1 View CLINICAL HISTORY: ABD PAIN TECHNIQUE: Frontal view of the chest. COMPARISON: 07/15/2019 IMPRESSION: Cardiomegaly. Mild vascular congestion. Small opacity in the right upper lobe, possibly edema or infection. No pleural effusion.
[2020-04-25 00:02] LABS: COLOR,URINE YELLOW
[2020-04-25] MEDS ORDERED: Piperacillin/Tazobactam 3.375 GM in NS 110 ML IVPB ONE (00:45)
[2020-04-25 01:13] VITALS: BP 139/105
[2020-04-25 03:07] VITALS: BP 153/94
[2020-04-25 03:45] VITALS: BP 153/94
== END 2020-04-25 03:45 | disposition short-term general hospital (02) ==
LOC: EDUNIT# 22:05 → EDBD 22:05 → EMR 22:32
DX: K52.9 Noninfective gastroenteritis and colitis, unspecified (principal); R60.1 Generalized edema; J90 Pleural effusion, not elsewhere classified; I10 Essential (primary) hypertension; J45.909 Unspecified asthma, uncomplicated; J44.9 Chronic obstructive pulmonary disease, unspecified; I50.9 Heart failure, unspecified
CPT/HCPCS: 36415; 71045; 74176; 80053; 80307; 81003; 82140; 82248; 83690; 83880; 85025; 85610; 85730; 86850; 86900; 86901; 96365; 96375; J0360; J1940; J2270; J2543; Z7502; 99284